=== PATIENT | female | born 1950 | race Caucasian/White ===

== ENCOUNTER → 2019-05-17 13:17 | Outpatient (BNVA) | payer MEDICAID, SELFPAY | PROVIDERS: Family Provider Nurse Practitioner; Visit Provider Nurse Practitioner | DX: E78.2 Mixed hyperlipidemia (principal); I10 Essential (primary) hypertension; E55.9 Vitamin D deficiency, unspecified | CPT/HCPCS: 80053; 80061; 82306 ==

== ENCOUNTER → 2019-08-01 09:13 | Outpatient (BNVA) | payer MEDICAID, SELFPAY | PROVIDERS: Family Provider Nurse Practitioner; Visit Provider Nurse Practitioner | DX: J43.2 Centrilobular emphysema (principal); E78.2 Mixed hyperlipidemia; R53.83 Other fatigue | CPT/HCPCS: 71046; 82607; 85025 ==

== ENCOUNTER → 2019-10-10 16:40 | Outpatient (BNVA) | payer MEDICAID, SELFPAY | PROVIDERS: Family Provider Nurse Practitioner; Visit Provider Nurse Practitioner | DX: J43.2 Centrilobular emphysema (principal); R06.02 Shortness of breath; Z20.828 Contact with and (suspected) exposure to other viral communicable diseases | CPT/HCPCS: 71046; 80053; 85025; 87635 ==

== ENCOUNTER → 2020-03-14 16:31 | Outpatient (BNVA) | payer MEDICAID, SELFPAY | PROVIDERS: Family Provider Nurse Practitioner; Visit Provider Nurse Practitioner | DX: J43.2 Centrilobular emphysema (principal); I10 Essential (primary) hypertension; F41.1 Generalized anxiety disorder; M25.511 Pain in right shoulder; G89.29 Other chronic pain; E55.9 Vitamin D deficiency, unspecified; K21.9 Gastro-esophageal reflux disease without esophagitis; J30.1 Allergic rhinitis due to pollen | CPT/HCPCS: 80053; 80061 ==

== ENCOUNTER → 2020-08-12 09:43 | Outpatient (BNVA) | payer MEDICAID, SELFPAY | PROVIDERS: Family Provider Nurse Practitioner; PCP Nurse Practitioner; Visit Provider Nurse Practitioner | DX: E55.9 Vitamin D deficiency, unspecified (principal); I10 Essential (primary) hypertension; J43.2 Centrilobular emphysema; F41.1 Generalized anxiety disorder; E78.2 Mixed hyperlipidemia; K21.9 Gastro-esophageal reflux disease without esophagitis; J30.1 Allergic rhinitis due to pollen | CPT/HCPCS: 80053; 80061; 82306; 84443 ==

== ENCOUNTER → 2020-11-04 09:36 | Outpatient (BNVA) | payer MEDICAID, SELFPAY | PROVIDERS: Family Provider Nurse Practitioner; PCP Nurse Practitioner; Visit Provider Nurse Practitioner | DX: J43.2 Centrilobular emphysema (principal); I10 Essential (primary) hypertension; F41.1 Generalized anxiety disorder; E55.9 Vitamin D deficiency, unspecified; E78.2 Mixed hyperlipidemia; K21.9 Gastro-esophageal reflux disease without esophagitis; J30.1 Allergic rhinitis due to pollen | CPT/HCPCS: 71046; 85025 ==

== ENCOUNTER → 2021-02-04 11:28 | Outpatient (BNVA) | payer MEDICAID, SELFPAY | PROVIDERS: Family Provider Nurse Practitioner; PCP Nurse Practitioner; Visit Provider Nurse Practitioner | DX: Z20.822 Contact with and (suspected) exposure to COVID-19 (principal); J43.2 Centrilobular emphysema; I10 Essential (primary) hypertension; E55.9 Vitamin D deficiency, unspecified | CPT/HCPCS: 71046; 80053; 80061; 82306; 84443; 85025; 87635 ==

== ENCOUNTER → 2021-07-23 11:30 | Outpatient (BNVA) | payer MEDICAID, SELFPAY | PROVIDERS: Family Provider Nurse Practitioner; PCP Nurse Practitioner; Visit Provider Nurse Practitioner | DX: I10 Essential (primary) hypertension (principal); E55.9 Vitamin D deficiency, unspecified; E78.2 Mixed hyperlipidemia; K21.9 Gastro-esophageal reflux disease without esophagitis; J43.2 Centrilobular emphysema; J30.1 Allergic rhinitis due to pollen; F41.1 Generalized anxiety disorder | CPT/HCPCS: 80053; 80061; 82306; 85025 ==

== ENCOUNTER 2021-10-27 20:06 | Inpatient (IN) | payer MEDICAID, SELFPAY ==
--- NOTE | 2021-10-27 20:07 | XRR_ITS ---
PROCEDURE INFORMATION: Exam: XR Left Hip Exam date and time: 10/27/2021 8:30 PM Age: 71 years old Clinical indication: Injury or trauma; Fall; Other: Possible fracture TECHNIQUE: Imaging protocol: Radiologic exam of the Left hip. Views: 2 or 3 views hip with pelvis when performed. COMPARISON: No relevant prior studies available. FINDINGS: Bones/joints: Subcapital impacted hip fracture with overlap of the fracture fragments. Soft tissues: Unremarkable. Vasculature: Scattered vascular calcifications. XR/XR hip LT 2-3V wo/w pel* [id number] IMPRESSION: 1. Subcapital impacted hip fracture with overlap of the fracture fragments. 2. Scattered vascular calcifications.
[2021-10-27 20:11] VITALS: BMI 19.8
[2021-10-27 20:15] VITALS: BP 206/115; PULSE 102; RESP 19; O2SAT 99
--- NOTE | 2021-10-27 20:24 | XRR_ITS ---
PROCEDURE INFORMATION: Exam: XR Chest Exam date and time: 10/27/2021 8:30 PM Age: 71 years old Clinical indication: Shortness of breath; Additional info: Fall TECHNIQUE: Imaging protocol: Radiologic exam of the chest. Views: 1 view. COMPARISON: No relevant prior studies available. FINDINGS: Lungs: Emphysematous changes. Pleural spaces: Possible trace bilateral pleural effusions. Heart/Mediastinum: Unremarkable. No cardiomegaly. Bones/joints: Unremarkable. XR/XR chest 1V portable [id number] IMPRESSION: 1. Negative for acute abnormality. 2. Emphysematous changes. 3. Possible trace bilateral pleural effusions.
--- NOTE | 2021-10-27 20:24 | CTR_ITS ---
PROCEDURE INFORMATION: Exam: CT Head Without Contrast Exam date and time: 10/27/2021 9:36 PM Age: 71 years old Clinical indication: Injury or trauma; Fall; Blunt trauma (contusions or hematomas) TECHNIQUE: Imaging protocol: Computed tomography of the head without contrast. Radiation optimization: All CT scans at this facility use at least one of these dose optimization techniques: automated exposure control; mA and/or kV adjustment per patient size (includes targeted exams where dose is matched to clinical indication); or iterative reconstruction. COMPARISON: No relevant prior studies available. RADIATION DOSE METRICS: Total DLP (mGy-cm): 993.38 FINDINGS: Brain: Mild diffuse white matter disease likely reflecting chronic microvascular ischemic changes. Cerebral ventricles: No ventriculomegaly. Paranasal sinuses: Visualized sinuses are unremarkable. No fluid levels. Mastoid air cells: Visualized mastoid air cells are well aerated. Bones/joints: Unremarkable. No acute fracture. Soft tissues: Unremarkable. CT/CT head wo con* [id number] IMPRESSION: Negative for intracranial hemorrhage or mass effect.
--- NOTE | 2021-10-27 20:24 | W.ED.EXTPRO ---
HPI - Extremity Problem General: Chief complaint: Extremity Injury, Lower Stated complaint: left hip pain Time Seen by Provider: 10/27/21 20:12 [facility] PFSH: Medical History Allergic rhinitis due to pollen Centrilobular emphysema Gastro-esophageal reflux disease without esophagitis Generalized anxiety disorder History of TB (tuberculosis) Hypertension Mixed hyperlipidemia Neuropathy Personal history of nicotine dependence Vitamin D insufficiency Surgical History History of section History of colonoscopy 2016 Hx of total hysterectomy with BSO Family History Other Bleeding disorder Cancer Diabetes Stroke Thyroid disease Social History Smoking and tobacco status: former smoker Second hand smoke exposure: Yes Smoking risk assessment/counseling performed?: Yes Alcohol intake: never Desire information about alcohol rehabilitation?: No Counseling given: No Desire information about substance/drug rehabilitation?: No Counseling given: No Adopted: No Caregiver/support person: No Lives independently: Yes Household members: family Housing: House Marital status: Number of children: 4 service: No Current occupational status: retired Current occupational exposures/hazards: No History of recent travel: No Current gender identity: Female Course Vital Signs: Vital signs: Vital Signs Pulse Rate 102 H 10/27/21 20:15 Respiratory Rate 19 H 10/27/21 20:15 Blood Pressure 206/115 10/27/21 20:15 Pulse Oximetry 99 10/27/21 20:15 Oxygen Delivery Me thod 10/27/21 20:15 Oxygen Flow Rate 4 10/27/21 20:15 Discharge Plan Discharge Condition: Stable Prescriptions: No Action prednisone 10 mg tablet 10 mg PO DAILY Qty: 10 0RF (DME) oxygen concentrator with portable oxygen See Rx Instructions .Route .MEDSUPPLY Qty: 1 0RF Rx Instructions: As directed oxygen concentrator with portable oxygen 2 liters 24 hours atorvastatin 20 mg tablet 20 mg PO DAILY Qty: 30 2RF cholecalciferol (vitamin D3) [Vitamin D3] 125 mcg (5,000 unit) tablet 5,000 unit PO QDAY Qty: 30 2RF famotidine 40 mg tablet 40 mg PO .HS Qty: 30 2RF Flovent HFA 110 mcg/actuation HFA aerosol inhaler 2 puff inhalation BID Qty: 12 2RF guaifenesin [Tussin] 400 mg tablet 400 mg PO QID Qty: 120 2RF lisinopril 40 mg tablet 40 mg PO QDAY Qty: 30 2RF loratadine [Allergy Relief (loratadine)] 10 mg tablet 10 mg PO QDAY Qty: 90 0RF magnesium oxide 400 mg magnesium tablet 400 mg PO BID Qty: 180 0RF Stiolto Respimat 2.5-2.5 mcg/actuation mist 2 puff inhalation Q24H Qty: 4 2RF Rx Instructions: Stop Bevespi trazodone 50 mg tablet 50 mg PO .HS Qty: 30 2RF venlafaxine 75 mg capsule,extended release 24hr 75 mg PO QDAY Qty: 30 2RF azithromycin 250 mg tablet See Rx Instructions PO .COMPLEX Qty: 6 0RF Rx Instructions: For 250 mg dose pack: take 500 mg today (day 1), then 250 mg for 4 days (days 2-5) PO ipratropium-albuterol 0.5 mg-3 mg(2.5 mg base)/3 mL solution for nebulization 3 ml inhalation Q4H PRN (Reason: wheezing) Qty: 180 2RF Referrals: Ema Jansen FNP-C [Primary Care Provider] - Coding Level of Care Code ED Manager Equity for Kristel Muse
--- NOTE | 2021-10-27 20:41 | XRR_ITS ---
PROCEDURE INFORMATION: Exam: XR Left Knee Exam date and time: 10/27/2021 8:43 PM Age: 71 years old Clinical indication: Injury or trauma; Fall; Other: Pain; Additional info: Knee pain TECHNIQUE: Imaging protocol: Radiologic exam of the Left knee. Views: 1 or 2 views. COMPARISON: No relevant prior studies available. FINDINGS: Bones/joints: Moderate tricompartmental osteoarthritis of the knee. Soft tissues: Normal. Vasculature: Scattered vascular calcifications. XR/XR knee LT 1-2V [id number] IMPRESSION: 1. Moderate tricompartmental osteoarthritis of the knee. 2. Scattered vascular calcifications.
[2021-10-27 21:03] VITALS: PULSE 100; RESP 16; O2SAT 96
[2021-10-27 21:11] LABS: Basophils % 0.4 %; Eosinophils # 0.1 10^3/uL (0.0-0.8); Eosinophils % 0.5 %; Hematocrit 36.3 % (37.0-47.0); Hemoglobin 10.9 g/dL (11.5-15.3); Lymphocytes % 10.1 %; Mean Corpuscular Hemoglobin 27.2 pg (28.0-34.0); Mean Corpuscular Volume 90.5 fl (81-99); Monocytes # 0.6 10^3/uL (0.2-0.9); Monocytes % 5.9 %; Neutrophils # 7.79 10^3/uL (1.8-7.7); Neutrophils % 82.6 %; Nucleated Red Blood Cells % 0 %; Platelet Count 279 10^3/cmm (130-400); Red Blood Count 4.01 10^6/uL (4.1-5.3); Red Cell Distribution Width 12.4 % (12.1-15.1); White Blood Count 9.4 10^3/uL (4.0-10.0)
--- NOTE | 2021-10-27 21:11 | ED_ITS ---
HPI - General Adult General: Stated complaint: left hip pain Time Seen by Provider: 10/27/21 20:12 History of Present Illness: Patient is a 71-year-old female history of hyperlipidemia, hypertension, chronic cough who presents emergency room after episode of fall yesterday night. Patient tells me that she was at home when she slipped and fell onto her left hip. Patient has been ambulatory yesterday night however this morning, patient has not been able to bear weight on the left leg. Patient complains of left knee and left hip pain. Patient also reports hitting her head with the fall. Patient has no complaints of chest pain, shortness of palpitation or lightheadedness with the fall. Patient has a junky cough denies any worsening fever/chills, increased sputum production or dyspnea. Onset: yesterday night Duration:ongoing Location:home Severity:moderate Associated symptoms: Deny chest pain, dyspnea, nausea, rash, palpitations or vom iting Review of Systems Const: Denies: fever(s) or chills Eyes: Denies: change in vision ENMT: Denies: mouth pain Card: Denies: chest pain or palpitations Resp: Reports: non-productive cough; Denies: dyspnea GI: Denies: abdominal pain, nausea, vomiting or diarrhea : Denies: dysuria Musc: Reports: extremity pain (+L hip and L knee pain) Skin/Breast: Denies: rash or new lesions Neuro: Denies: weakness in extremities Psych: Reports: other (Normal mood) Alfredo/Lymph: Denies: easy bruising PFS ED PFSH: Medical History (Updated 10/28/21 @ 18:48 by Ashli Frausto MD) Allergic rhinitis due to pollen Centrilobular emphysema Gastro-esophageal reflux disease without esophagitis Generalized anxiety disorder History of TB (tuberculosis) Hypertension Mixed hyperlipidemia Neuropathy Personal history of nicotine dependence Vitamin D insufficiency Surgical History History of section History of colonoscopy 2016 Hx of total hysterectomy with BSO Family History Other Bleeding disorder Cancer Diabetes Stroke Thyroid disease Social History Smoking and tobacco status: former smoker Second hand smoke exposure: Yes Smoking risk assessment/counseling performed?: Yes Alcohol intake: never Desire information about alcohol rehabilitation?: No Counseling given: No Desire information about substance/drug rehabilitation?: No Counseling given: No Adopted: No Caregiver/support person: No Lives independently: Yes Household members: family Housing: House Marital status: Number of children: 4 service: No Current occupational status: retired Current occupational exposures/hazards: No History of recent travel: No Current gender identity: Female Physical Exam Const: COMMON NORMALS: alert HENMT: COMMON NORMALS: atraumatic HEAD & SCALP: atraumatic MOUTH: moist mucous membranes not abnormal Eye: COMMON NORMALS: EOMs intact bilaterally and conjunctivae normal CONJUNCTIVA: Yes conjunctivae normal Neck/C-Spine: COMMON NORMALS: full ROM and supple Resp: COMMON NORMALS: normal respiratory effort OTHER: +coarse junky breath sounds b/l Cardio: COMMON NORMALS: regular rate RATE: regular rate GI: COMMON NORMALS: Soft to palpation and non-tender PALPATION: Yes Soft to palpation OTHER: No focal TTP. NO guarding rebound, guarding, rigidity. No CVA tenderness to percussion. Neg Morley/Neg McBurney's point tenderness, no suprabupic tenderness to palpation. Extremity: NARRATIVE EXTREMITY EXAM: + Decreased patient return the left hip due to pain, no focal tenderness palpation of the left knee, neurovascular exam intact in the left leg Neuro: SENSORIUM/ORIENTATION: Yes alert MOTOR EXAM: No Abnormal motor strength present and Other motor observations present (no focal motor deficits) Psych: COMMON NORMALS: speech normal SPEECH: Yes normal speech MOOD & AFFECT: Yes euthymic mood Course Vital Signs: Vital signs: Vital Signs Temperature 97.6 F 11/01/21 08:00 Pulse Rate 90 11/01/21 08:04 Respiratory Rate 16 11/01/21 08:04 Blood Pressure 158/76 11/01/21 08:00 Pulse Oximetry 96 11/01/21 08:04 Oxygen Delivery Me thod 11/01/21 08:04 Oxygen Flow Rate 3 11/01/21 08:04 [facility] - General Adult Medical Decision Making Patient is a 71-year-old female history of hyperlipidemia, hypertension chronic cough who presents emergency room after episode of fall yesterday night. Lungs appear to be coarse bilaterally. X-ray chest appears to be clear. Patient is afebrile, white count 9.4. Patient has decreased range of motion of the left hip. X-ray shows subcapital hip fracture. Patient received morphine in the ER. Case was discussed from Dr. Frausto who recommend n.p.o. at midnight and operative management. Disposition: admission Lab Data : 11/01/21 04:14 11/01/21 04:14 Radiology Impressions Hip/Pelvis X-Ray 10/27/21 20:07 IMPRESSION: 1. Subcapital impacted hip fracture with overlap of the fracture fragments. 2. Scattered vascular calcifications. Chest X-Ray 10/27/21 20:24 IMPRESSION: 1. Negative for acute abnormality. 2. Emphysematous changes. 3. Possible trace bilateral pleural effusions. Head CT 10/27/21 20:24 IMPRESSION: Negative for intracranial hemorrhage or mass effect. Knee X-Ray 10/27/21 20:41 IMPRESSION: 1. Moderate tricompartmental osteoarthritis of the knee. 2. Scattered vascular calcifications. Pelvis X-Ray 10/28/21 21:04 IMPRESSION: 1. Left hip arthroplasty changes in place with postsurgical soft tissue changes. 2. Scattered vascular calcifications. Laboratory Results WBC 9.4 10^3/uL (4.0-10.0) 10/27/21 21:00 RBC 4.01 10^6/uL (4.1-5.3) L 10/27/21 21:00 Hgb 10.9 g/dL (11.5-15.3) L 10/27/21 21:00 Hct 36.3 % (37.0-47.0) L 10/27/21 21:00 MCV 90.5 fl (81-99) 10/27/21 21:00 MCH 27.2 pg (28.0-34.0) L 10/27/21 21:00 MCHC 30.0 g/dL (30.0-36.0) 10/27/21 21:00 RDW 12.4 % (12.1-15.1) 10/27/21 21:00 Plt Count 279 10^3/cmm (130-400) 10/27/21 21:00 MPV 11.0 fL (7.4-10.4) H 10/27/21 21:00 Neut % (Auto) 82.6 % 10/27/21 21:00 Lymph % (Auto) 10.1 % 10/27/21 21:00 [place] % (Auto) 5.9 % 10/27/21 21:00 Eos % (Auto) 0.5 % 10/27/21 21:00 Baso % (Auto) 0.4 % 10/27/21 21:00 Neut # (Auto) 7.79 10^3/uL (1.8-7.7) H 10/27/21 21:00 Lymph # (Auto) 1.0 10^3/uL (0.8-4.8) 10/27/21 21:00 [place] # (Auto) 0.6 10^3/uL (0.2-0.9) 10/27/21 21:00 Eos # (Auto) 0.1 10^3/uL (0.0-0.8) 10/27/21 21:00 Baso # (Auto) 0.0 10^3/uL (0.0-0.1) 10/27/21 21:00 Nucleated RBC % (auto) 0 % 10/27/21 21:00 Nucleated RBCs # 0.0 /100WBC 10/27/21 21:00 PT 13.10 SECONDS (12.1-14.9) 10/27/21 21:00 INR 0.96 (0.8-1.2) 10/27/21 21:00 APTT 26.7 SECONDS (23.9-36.7) 10/27/21 21:00 Sodium 136 mmol/L (136-145) 10/27/21 21:00 Potassium 3.9 mmol/L (3.5-5.1) 10/27/21 21:00 Chloride 92 mmol/L (98-107) L 10/27/21 21:00 Carbon Dioxide 32 mmol/L (22-29) H 10/27/21 21:00 Anion Gap 15.9 (5-19) 10/27/21 21:00 BUN 12 mg/dL (8-23) 10/27/21 21:00 Creatinine 0.4 mg/dL (0.5-0.9) L 10/27/21 21:00 GFR Calculation Not Reportable 10/27/21 21:00 Glucose 104 mg/dL (65-115) 10/27/21 21:00 Calculated Osmolality 282 mOsm/kg (285-295) L 10/27/21 21:00 Calcium 9.9 mg/dL (8.5-10.5) 10/27/21 21:00 Troponin T Baseline 60 ng/L (0-10) H 10/27/21 21:00 Blood Type B Positive 10/27/21 21:00 Rho(D) Type Positive 10/27/21 21:00 Antibody Screen Negative 10/27/21 21:00 Imaging Data Other Imaging: Radiologist's impression: [facility] [address] [address] XRay Report Signed Patient: Karin Garcia Unit #: [id number] : 1950 Age/Sex: 71 / F ADM Date: 10/27/21 Loc: ER Room/Bed: Attending Dr: Ordering Provider/Ordering MD: Walker Schmitz MD Date of Service: 10/27/21 Procedure(s): XR knee LT 1-2V 18509 Accession Number(s): [id number] Report Number: [id number] PROCEDURE INFORMATION: Exam: XR Left Knee Exam date and time: 10/27/2021 8:43 PM Age: 71 years old Clinical indication: Injury or trauma; Fall; Other: Pain; Additional info: Knee pain TECHNIQUE: Imaging protocol: Radiologic exam of the Left knee. Views: 1 or 2 views. COMPARISON: No relevant prior studies available. FINDINGS: Bones/joints: Moderate tricompartmental osteoarthritis of the knee. Soft tissues: Normal. Vasculature: Scattered vascular calcifications. XR/XR knee LT 1-2V [id number] IMPRESSION: 1. Moderate tricompartmental osteoarthritis of the knee. 2. Scattered vascular calcifications. ? Dictated By: Mani Guna MD Signed By: Mani Guan MD Signed Date/Time: 10/27/212056 DD/ [address] [address] XRay Report Signed Patient: Karin Garcia Unit #: [id number] : 1950 Age/Sex: 71 / F ADM Date: 10/27/21 Loc: ER Room/Bed: Attending Dr: Ordering Provider/Ordering MD: Walker Schmitz MD Date of Service: 10/27/21 Procedure(s): XR chest 1V portable [id number] Accession Number(s): [id number] Report Number: [id number] PROCEDURE INFORMATION: Exam: XR Chest Exam date and time: 10/27/2021 8:30 PM Age: 71 years old Clinical indication: Shortness of breath; Additional info: Fall TECHNIQUE: Imaging protocol: Radiologic exam of the chest. Views: 1 view. COMPARISON: No relevant prior studies available. FINDINGS: Lungs: Emphysematous changes. Pleural spaces: Possible trace bilateral pleural effusions. Heart/Mediastinum: Unremarkable. No cardiomegaly. Bones/joints: Unremarkable. XR/XR chest 1V portable [id number] IMPRESSION: 1. Negative for acute abnormality. 2. Emphysematous changes. 3. Possible trace bilateral pleural effusions. ? Dictated By: Mani Guan MD Signed By: Mani Guan MD Signed Date/Time: 10/27/212055 DD/ [address] [address] XRay Report Signed Patient: Karin Garcia Unit #: [id number] : 1950 Age/Sex: 71 / F ADM Date: 10/27/21 Loc: ER Room/Bed: Attending Dr: Ordering Provider/Ordering MD: Akil Quintero MD Date of Service: 10/27/21 Procedure(s): XR hip LT 2-3V wo/w pel* [id number] Accession Number(s): [id number] Report Number: [id number] PROCEDURE INFORMATION: Exam: XR Left Hip Exam date and time: 10/27/2021 8:30 PM Age: 71 years old Clinical indication: Injury or trauma; Fall; Other: Possible fracture TECHNIQUE: Imaging protocol: Radiologic exam of the Left hip. Views: 2 or 3 views hip with pelvis when performed. COMPARISON: No relevant prior studies available. FINDINGS: Bones/joints: Subcapital impacted hip fracture with overlap of the fracture fragments. Soft tissues: Unremarkable. Vasculature: Scattered vascular calcifications. XR/XR hip LT 2-3V wo/w pel* [id number] IMPRESSION: 1. Subcapital impacted hip fracture with overlap of the fracture fragments. 2. Scattered vascular calcifications. ? Dictated By: Mani Guan MD Signed By: Mani Guan MD Signed Date/Time: 10/27/212055 DD/ 29 Discharge Plan Discharge Patient Disposition: Admitted As Inpatient Admit Provider: Claudio Cortes Clinical Impression: Closed hip fracture Condition: Stable Discharge Activity: Limit activity as instructed, Use walker/crutches as instructed and As per PT/OT instructions Coding Level of Care Code ED Senior Integration Architect for Chg Fwd Exam Comprehensive
--- NOTE | 2021-10-27 21:16 | XRR_ITS ---
PROCEDURE INFORMATION: Exam: XR Pelvis Exam date and time: 10/27/2021 9:40 PM Age: 71 years old Clinical indication: Injury or trauma; Fall; Blunt trauma (contusions or hematomas); Bilateral; Pelvic region; Injury date: Today; Additional info: Addition to isolated ap and lat hip left hip TECHNIQUE: Imaging protocol: Radiologic exam of the pelvis. Views: 1 or 2 view. COMPARISON: CR (PELVIS, ) 10/27/2021 8:30 PM FINDINGS: Bones/joints: Left subcapital impacted displaced hip fracture. Soft tissues: Unremarkable. Vasculature: Scattered vascular calcifications. XR/XR pelvis 1-2V* [id number] IMPRESSION: 1. Left subcapital impacted displaced hip fracture. 2. Scattered vascular calcifications.
[2021-10-27 21:28] VITALS: RESP 15
[2021-10-27] MEDS: morphine 4 mg/mL SDV 1 mL IVP (21:28)
[2021-10-27 21:39] LABS: INR 0.96 (0.8-1.2); Partial Thromboplastin Time 26.7 SECONDS (23.9-36.7)
[2021-10-27 21:42] LABS: Troponin(5th) Baseline 60 ng/L (0-10)
[2021-10-27 21:44] LABS: Anion Gap 15.9 (5-19); Blood Urea Nitrogen 12 mg/dL (8-23); Calcium 9.9 mg/dL (8.5-10.5); Carbon Dioxide 32 mmol/L (22-29); Chloride 92 mmol/L (98-107); Glucose 104 mg/dL (65-115); Osmolality Calculated 282 mOsm/kg (285-295); Potassium 3.9 mmol/L (3.5-5.1); Sodium 136 mmol/L (136-145)
[2021-10-27 22:24] VITALS: PULSE 95; RESP 18; TEMP 36.7; O2SAT 94
--- NOTE | 2021-10-27 22:39 | PM.HP ---
Providers/Chief Complaint Admitting Physician: Claudio Cortes MD Primary Care Provider: Ema Jansen, DIAGNOSTICS SALES DEVELOPER-C Chief Complaint: left hip pain History of Present Illness Karin Garcia is a 71 year old female with a past medical history of emphysema, hypertension, hyperlipidemia, GERD, generalized anxiety disorder, who presents to [facility] due to inability to walk and left hip pain. Patient tells that yesterday evening, she bent over to package pick up something off the floor, when she fell on her left side, she did not lose any consciousness she did hit her head, no preceding chest pain or palpitations or shortness of breath or strokelike symptoms or seizure-like symptoms. She spent a few minutes on the floor, eventually she called out for her son who came and picked her up off the ground, since then she is not able to walk, and she has been having left-sided hip pain. She present to the emergency room today with her symptoms, denies any chest pain, no palpitations, no shortness of breath, no numbness, no facial droop, no slurring of her words, no focal weakness, no strokelike symptoms, no seizure-like symptoms, denies passing out, no dysuria, no shortness of breath, no cough, she has a history of smoking, but quit a few years ago, denies drinking alcohol Review of Systems Const: Denies: fever(s) or chills Eyes: Denies: change in vision Card: Denies: chest pain Resp: Denies: dyspnea GI: Denies: abdominal pain : Denies: difficulty voiding Musc: Reports: extremity pain Neuro: Denies: headache(s), numbness in extremities, weakness in extremities or dizziness Medications/Allergies Home Medications Medication Instructions Recorded Confirmed Last Taken Type oxygen concentrator with portable #1 ea 02/04/21 10/27/21 Unknown Rx oxygen atorvastatin 20 mg tablet 20 mg PO DAILY #30 tabs 07/23/21 10/27/21 10/25/21 Rx fluticasone propionate 110 2 puff inhalation BID #12 grams 07/23/21 10/27/21 Unknown Rx mcg/actuation HFA aerosol inhaler (Flovent HFA) ipratropium 0.5 mg-albuterol 3 mg 3 ml inhalation Q4H PRN wheezing 07/23/21 10/27/21 Unknown Rx (2.5 mg base)/3 mL nebulization #180 mL soln magnesium oxide 400 mg PO BID #180 tabs 07/23/21 10/27/21 10/25/21 Rx cholecalciferol (vitamin D3) 125 5,000 unit PO DAILY 10/27/21 10/27/21 10/25/21 History mcg (5,000 unit) tablet (Vitamin D3) famotidine 40 mg tablet 40 mg PO BEDTIME 10/27/21 10/27/21 10/25/21 History lisinopril 40 mg tablet 40 mg PO DAILY 10/27/21 10/27/21 10/25/21 History trazodone 50 mg tablet 50 mg PO BEDTIME 10/27/21 10/27/21 10/25/21 History venlafaxine 75 mg capsule,extended 75 mg PO DAILY 10/27/21 10/27/21 10/25/21 History release 24 hr Allergies Allergy/AdvReac Type Severity Reaction Status Date / Time No Known Allergies Allergy Unverified 07/27/21 16:57 PFSH Acute PFSH: Medical History Allergic rhinitis due to pollen Centrilobular emphysema Gastro-esophageal reflux disease without esophagitis Generalized anxiety disorder History of TB (tuberculosis) Hypertension Mixed hyperlipidemia Neuropathy Personal history of nicotine dependence Vitamin D insufficiency Surgical History History of section History of colonoscopy 2016 Hx of total hysterectomy with BSO Family History Other Bleeding disorder Cancer Diabetes Stroke Thyroid disease Social History Smoking and tobacco status: former smoker Second hand smoke exposure: Yes Smoking risk assessment/counseling performed?: Yes Alcohol intake: never Desire information about alcohol rehabilitation?: No Counseling given: No Desire information about substance/drug rehabilitation?: No Counseling given: No Adopted: No Caregiver/support person: No Lives independently: Yes Household members: family Housing: House Marital status: Number of children: 4 service: No Current occupational status: retired Current occupational exposures/hazards: No History of recent travel: No Current gender identity: Female Vitals/I&O/Wt Last Vital Signs Temp 98.1 F 10/27/21 22:24 Pulse 95 10/27/21 22:24 Resp 18 10/27/21 22:24 BP 206/115 10/27/21 20:15 Pulse Ox 94 10/27/21 22:24 O2 Del Method 10/27/21 22:24 O2 Flow Rate 4 10/27/21 22:24 Weight last 48 hrs Weight 44.452 kg Physical Exam Const: COMMON NORMALS: no acute distress and patient oriented x3 HENMT: COMMON NORMALS: normocephalic HEAD & SCALP: normocephalic Eye: COMMON NORMALS: Equal, round and reactive pupils present and EOMs intact bilaterally Neck/C-Spine: COMMON NORMALS: no JVD Resp: COMMON NORMALS: normal respiratory effort, No retractions, No use of accessory muscles and clear to auscultation bilaterally AUSCULTATION: clear to auscultation bilaterally Cardio: COMMON NORMALS: no JVD, regular rate, regular rhythm, S1 normal heart sound present and S2 normal heart sound present RATE: regular rate RHYTHM: regular rhythm HEART SOUNDS: S1 normal heart sound present and S2 normal heart sound present GI: COMMON NORMALS: Normal to inspection, nondistended, normoactive bowel sounds present, Soft to palpation, non-tender, No hepatosplenomegaly present, no masses and no bruits PALPATION: Yes Soft to palpation and Yes No hepatosplenomegaly present Extremity: COMMON NORMALS: no calf tenderness and no pedal edema Neuro: COMMON NORMALS: patient oriented x3 Psych: COMMON NORMALS: mental status grossly normal Data : 10/27/21 21:00 10/27/21 21:00 A&P Assessment and plan (1) Closed hip fracture: Status: Acute (2) Centrilobular emphysema: Status: Chronic Plan Left hip fracture -Orthopedic service has been consulted -Anticoagulation as per orthopedic team -Morphine for pain control -UA pending -Serial EKGs, serial troponins, baseline troponin 60, no complaints of chest pain -PT OT after surgery -IV fluids -Full code -SCDs for DVT prophylaxis, anticoagulation after surgery Attestations Medical Necessity Statement*: Patient requires hospitalization, inpatient, greater than 2 midnights, for left hip fracture Coding Level of Care Code Acute Grounds Crew Supervisor for Chg Fwd Diagnoses Closed hip fracture S72.009A Centrilobular emphysema J43.2
[2021-10-27 22:58] VITALS: BP 206/115; PULSE 95; RESP 18; TEMP 36.7; O2SAT 94
[2021-10-27 23:30] LABS: Troponin 5 2HR 104.1 ng/L (0-10)
[2021-10-27 23:36] LABS: Troponin 5 2HR Delta 44.1 ABS# (0-10)
[2021-10-28] VITALS (23 sets, daily range): BP systolic 117–197; BP diastolic 67–104; PULSE 0–101; RESP 14–21; TEMP 36.1–37.1; O2SAT 90–100
[2021-10-28] MEDS: ceFAZolin 2,000 MG in sodium chloride 0.9% (plus) 50 ML 100 MG IV ×3 (00:19→22:55)
[2021-10-28] MEDS: sodium chloride 0.9% 1,000 ML 100 ML IV ×3 (00:20→22:57)
[2021-10-28] MEDS: pantoprazole 40 mg SDV IVP ×2 (00:21→22:55)
--- NOTE | 2021-10-28 00:39 | ECG_ITS ---
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 Measurements Intervals [place] Rate: 90 P: 77 [place]: 144 QRS: 74 QRSD: 77 T: -53 QT: 344 QTc: 422 Interpretive Statements SINUS RHYTHM ST DEVIATION AND MODERATE T-WAVE ABNORMALITY, CONSIDER INFERIOR ISCHEMIA No previous ECG available for comparison Electronically Signed On 10-28-2021 18:05:02 CDT by Romelia Elliott M.D. [id number]
--- NOTE | 2021-10-28 00:39 | USCV_ITS ---
Karin Garcia Age: 71 Gender: F : 1950 Exam Date: 10/28/2021 02:36 Ordering Phys: Claudio Cortes MD Technologist: SHAHNAZ [place] [facility] [place]: NSTEMI. BP: 181 / 81 HR: 93 Rhythm: Sinus Technical Quality: Adequate MEASUREMENTS (Male / Female) Normal Values 2D ECHO LV Diastolic Diameter PLAX 3.5 cm 4.2 - 5.9 / 3.9 - 5.3 cm LV Systolic Diameter PLAX 2.4 cm IVS Diastolic Thickness 1.0 cm 0.6 - 1.0 / 0.6 - 0.9 cm IVS Systolic Thickness 1.3 cm LVPW Diastolic Thickness 1.0 cm 0.6 - 1.0 / 0.6 - 0.9 cm LVPW Systolic Thickness 0.7 cm LVOT Diameter 1.7 cm LV Ejection Fraction 2D Teich 59.7 % LV Ejection Fraction MOD 2C 69.5 % LV Ejection Fraction 2C AL 68.6 % LA Diameter 2.7 cm LA Width 3.2 cm LA Height 4.2 cm RA Width 2.2 cm RA Height 3.9 cm Aorta at Sinotubular Diameter 3.2 cm IVC Diameter 1.4 cm M-MODE Aortic Annulus Diameter 3.4 cm LA Ao Ratio MM 0.8 MV E Point Septal Separation 0.3 cm DOPPLER AV Peak Velocity 110.0 cm/s LVOT Peak Velocity 68.0 cm/s AV Area Cont Eq vti 1.2 cm squared AV Area Cont Eq pk 1.4 cm squared MV Area PHT 3.7 cm squared Mitral E to A Ratio 0.8 MV E' Velocity 38.0 cm/s Mitral E to MV E' Ratio 13.4 Mitral E to LV E' Lateral Ratio 13.2 Mitral E to LV E' Septal Ratio 14.0 TR Peak Velocity 317.3 cm/s TR Peak Gradient 40.3 mmHg TV Peak E Velocity 37.0 cm/s Right Atrial Pressure 5.0 mmHg Pulmonary Artery Systolic Pressu 45.3 mmHg PV Peak Velocity 100.0 cm/s RV Acceleration Time 0.1 s RV Ejection Time 0.3 s RV AcT/ET 0.3 FINDINGS Left Ventricle Normal left ventricular size, systolic function with no regional wall motion abnormalities. Left ventricular ejection fraction is estimated at 60 %. Grade I diastolic dysfunction (abnormal relaxation filling pattern), normal to mildly elevated filling pressures. Right Ventricle Normal right ventricular size and systolic function. RVSP could not be calculated due to incomplete tricuspid regurgitation velocity profile. Right Atrium Normal right atrial size. Left Atrium Upper normal left atrial size. Mitral Valve Moderately thickened mitral valve. No mitral valve stenosis. Trace mitral valve regurgitation. Aortic Valve Structurally normal trileaflet aortic valve. No aortic valve stenosis. No aortic valve regurgitation. Tricuspid Valve Structurally normal tricuspid valve. No tricuspid valve stenosis. Trace to mild tricuspid valve regurgitation. Pulmonic Valve Structurally normal pulmonic valve. No pulmonary valve stenosis. No pulmonary valve regurgitation. Pericardium No pericardial effusion. Aorta Normal-sized aortic root. IVC Normal IVC dimension with >50% respiratory change of the inferior vena cava. CONCLUSIONS 1. Normal left ventricular size, systolic function with no regional wall motion abnormalities. Left ventricular ejection fraction is estimated at 60 %. Grade I diastolic dysfunction (abnormal relaxation filling pattern), normal to mildly elevated filling pressures. 2. Normal right ventricular size and systolic function. 3. Trace to mild tricuspid valve regurgitation. 4. There may not have been any significant change when compared to prior study report dated 12/30/2018. Romelia Elliott MD (Electronically Signed) Final Date: 28 October 2021 12:55 S
[2021-10-28] MEDS: aspirin 81 mg EC Tablet PO ×2 (01:37→23:55)
[2021-10-28] MEDS: carvedilol 3.125 mg Tablet PO ×3 (01:37→17:10)
[2021-10-28 02:26] LABS: Basophils % 0.5 %; Eosinophils # 0.2 10^3/uL (0.0-0.8); Eosinophils % 2.2 %; Hematocrit 35.6 % (37.0-47.0); Hemoglobin 10.4 g/dL (11.5-15.3); Lymphocytes # 1.1 10^3/uL (0.8-4.8); Lymphocytes % 13.9 %; Mean Corpuscular HGB Conc 29.2 g/dL (30.0-36.0); Mean Corpuscular Hemoglobin 26.9 pg (28.0-34.0); Mean Platelet Volume 11.6 fL (7.4-10.4); Monocytes # 0.5 10^3/uL (0.2-0.9); Monocytes % 6.4 %; Neutrophils # 5.94 10^3/uL (1.8-7.7); Neutrophils % 76.6 %; Nucleated Red Blood Cells % 0 %; Platelet Count 264 10^3/cmm (130-400); Red Blood Count 3.87 10^6/uL (4.1-5.3); Red Cell Distribution Width 12.7 % (12.1-15.1); White Blood Count 7.8 10^3/uL (4.0-10.0)
[2021-10-28 03:00] LABS: Anion Gap 13.8 (5-19); Blood Urea Nitrogen 11 mg/dL (8-23); Calcium 9.8 mg/dL (8.5-10.5); Carbon Dioxide 34 mmol/L (22-29); Chloride 94 mmol/L (98-107); Glucose 105 mg/dL (65-115); Osmolality Calculated 286 mOsm/kg (285-295); Potassium 3.8 mmol/L (3.5-5.1); Sodium 138 mmol/L (136-145); Thyroid Stimulating Hormone 1.94 uIU/mL (0.27-4.20)
[2021-10-28] MEDS: morphine 4 mg/mL SDV 1 mL IVP (07:13)
[2021-10-28 07:28] LABS: Troponin(5th) Baseline 81 ng/L (0-10)
[2021-10-28] MEDS: lisinopril 20 mg Tablet 40 MG PO (08:24)
[2021-10-28] MEDS: atorvastatin 40 mg Tablet 20 MG PO (08:24)
[2021-10-28] MEDS: venlafaxine ER (24HR) 75 mg Capsule PO (08:25)
[2021-10-28] MEDS: cholecalciferol (vitamin D3) 5,000 unit Tablet 5000 UNIT PO (08:25)
[2021-10-28 08:31] LABS: Add Urine Microscopic? YES; Bilirubin Urine Neg (Negative); Blood Urine 3+ (Negative); Glucose Urine UA Norm (Normal); Ketones Urine 1+ (Negative); Leukocyte Esterase Urine Negative (Negative); Nitrate Urine Negative (Negative); Protein Urine Trace (Negative); Urine Appearance Clear (CLEAR); Urine Color Yellow (Yellow); Urobilinogen Urine Norm (Negative); pH Urine 6 (5-7)
[2021-10-28 08:32] LABS: Add Urine Culture? Yes; Bacteria Urine TRACE /hpf; Mucus Urine 2+ /hpf; RBC Urine 25-40 /hpf (0-2); Squamous Epithelial Cell Urine 0-4 /hpf (0-5)
--- NOTE | 2021-10-28 08:46 | ECG_ITS ---
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 Measurements Intervals [place] Rate: 102 P: 36 [place]: 128 QRS: 67 QRSD: 90 T: 45 QT: 310 QTc: 404 Interpretive Statements SINUS TACHYCARDIA NONSPECIFIC ST & T-WAVE ABNORMALITY Compared to ECG 10/28/2021 00:49:15 Sinus rhythm no longer present Possible ischemia no longer present T-wave abnormality still present Electronically Signed On 10-28-2021 18:09:53 CDT by Romelia Elliott M.D. [id number]
[2021-10-28 09:28] LABS: Troponin 5 2HR 72.98 ng/L (0-10)
[2021-10-28 09:35] LABS: Troponin 5 2HR Delta -8.02 ABS# (0-10)
--- NOTE | 2021-10-28 10:52 | PC.CHAP ---
Pastoral Care Encounter/Spiritual Assessment Type of Contact [] Declined hand potter visit [] Patient/Family/Request visit [] Outpatient visit [] Follow-up visit [] Physician referral [] Code/Alert [x] Routine visit [] Staff referral [] Actively dying [] Patient sleeping [] Family support [] [] Out of room [] Palliative care [] [] Receiving care in room [] Pre-surgical visit [] Trauma [] Long length of stay [] ICU visit [] Other: Relational/Emotional Strength [] Patient feels connected with others/family/visitors/staff [] Distress [] Loneliness/isolation [] Abandonment Spirituality of Patient [x] Person of Kera [x] Attends Gnosticist of their Kera [x] Believes in Prayer [] Reads Bible or Cheondoism materials [] There are Spiritual issues to be addressed [employer] Photo Mask Maker Interventions [x] Prayer [x] Active listening [] Non-anxious presence []x Spiritual/emotional support [] Crisis/trauma care [] Spiritual counseling [] Bereavement support [] Provided bereavement packet [] Provided Bible/devotional materials [] Provided toy/stuffed animal, coloring book to patient or family member [] Provided Communion [] Anointing/[place] [] Salvation [x] Completed spiritual assessment [] Other: Impact on Illness or Injury [] Angry [] Fearful [] Anxious [] Often cries [] Exhaustion [] Unable to work [] Unable to attend sikhism [] Unable to walk/stand [] Unable to read [] Unable to drive [] Unable to eat/drink [] Unable to sleep [] Unable to be with family [] Patient intubated [] Other: Summary Time spent with patient 10 min
[2021-10-28] MEDS: HYDROcodone-acetaminophen 5-325 mg Tablet 1 TAB PO (12:03)
--- NOTE | 2021-10-28 12:46 | ECG_ITS ---
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 Measurements Intervals [place] Rate: 96 P: 70 [place]: 156 QRS: 53 QRSD: 90 T: 45 QT: 367 QTc: 466 Interpretive Statements SINUS RHYTHM ST DEVIATION AND MODERATE T-WAVE ABNORMALITY, CONSIDER ANTEROLATERAL ISCHEMIA [-0.1+ mV T-WAVE IN V3-V6] Compared to ECG 10/28/2021 09:30:07 Possible ischemia now present Sinus tachycardia no longer present T-wave abnormality still present Electronically Signed On 10-28-2021 18:07:35 CDT by Romelia Elliott M.D. [id number]
[2021-10-28 13:44] LABS: Troponin 5 6HR 61.87 ng/L (0-10)
--- NOTE | 2021-10-28 16:03 | PM.PN ---
Subjective Subjective: Admitted overnight. H&P appreciated On examination lying comfortably in bed. Complaining of occasional pain. Denies of any nausea, dizziness, headache. N.p.o. currently for ORIF in the evening. Vitals/I&O/Wt Last Vital Signs Temp 97.6 F 10/28/21 15:29 Pulse 76 10/28/21 15:29 Resp 15 10/28/21 15:29 BP 124/67 10/28/21 15:29 Pulse Ox 100 10/28/21 15:29 O2 Del Method 10/28/21 15:29 O2 Flow Rate 4 10/28/21 09:32 10/28/21 10/28/21 10/28/21 06:59 14:59 22:59 Intake Total 1050 / 1050 Balance 1050 / 1050 Weight last 48 hrs Weight 44.452 kg Physical Exam Const: COMMON NORMALS: no acute distress and patient oriented x3 HENMT: COMMON NORMALS: normocephalic HEAD & SCALP: normocephalic Eye: COMMON NORMALS: Equal, round and reactive pupils present and EOMs intact bilaterally PUPIL: Yes Equal, round and reactive pupils present Neck/C-Spine: COMMON NORMALS: no JVD Resp: COMMON NORMALS: normal respiratory effort, No retractions, No use of accessory muscles and clear to auscultation bilaterally AUSCULTATION: clear to auscultation bilaterally Cardio: COMMON NORMALS: no JVD, regular rate, regular rhythm, S1 normal heart sound present and S2 normal heart sound present RATE: regular rate RHYTHM: regular rhythm HEART SOUNDS: S1 normal heart sound present and S2 normal heart sound present GI: COMMON NORMALS: Normal to inspection, nondistended, normoactive bowel sounds present, Soft to palpation, non-tender, No hepatosplenomegaly present, no masses and no bruits PALPATION: Yes Soft to palpation and Yes No hepatosplenomegaly present Extremity: COMMON NORMALS: no calf tenderness and no pedal edema Neuro: COMMON NORMALS: patient oriented x3 Psych: COMMON NORMALS: mental status grossly normal Urinary Catheter Management: Vargas: Cath Placed During This Visit: yes Urinary Catheter Date of Insertion: 10/28/21 Urinary Catheter Time of Insertion: 01:00 Data : 10/28/21 01:29 10/28/21 01:29 A&P Assessment and plan (1) Closed hip fracture: Status: Acute (2) Centrilobular emphysema: Status: Chronic Plan Left hip fracture: Orthopedic consulted. Plan for ORIF in a.m. Physical therapy, pain medication, anticoagulation as per orthopedic team. Hypertension: Blood pressure less than 140/90 mmHg. Blood pressure elevated most likely secondary to pain. For now continue home dose of Coreg and lisinopril. Monitor hemoglobin and CMP. Case management consulted for discharge planning. Physical therapy postoperatively. Next NPO. Regular diet postoperatively. Protonix for PUD prophylaxis Full code. Attestations Medical Necessity Statement*: Requires further hospitalization for further management of left hip fracture requiring ORIF Time Spent in Patient Care: Greater than 35 minutes Coding Level of Care Code Acute Sole Layer Hand for Kristel Fwd Diagnoses Closed hip fracture S72.009A Centrilobular emphysema J43.2
[2021-10-28] MEDS: CELEcoxib 200 mg Capsule 400 MG PO (18:13)
[2021-10-28] MEDS: acetaminophen 1,000 MG/100 ML PIGGYBACK 400 MG IV ×2 (18:26→23:00)
--- NOTE | 2021-10-28 18:28 | PM.CONSULT ---
Providers/Reason For Consult Consulting Physician/Specialty*: Ashli Frausto MD Reason for Consult*: Left Subcapital Hip Fracture Requesting Physician: Grant Schmitz MD Attending Physician: Antonino Mathis MD Primary Care Provider: TERRELL Hopper History of Present Illness History of Present Illness Karin Garcia is a 71 year old female who presented to the emergency department last evening after a fall at home. The patient notes that she bent over to pick something up from the floor when she fell onto her side. The patient did hit her head, but she does not describe any reason for her fall. When asked if she blacked out , she said maybe for couple minutes. She called out for her son and she was unable to walk. She therefore was brought to the emergency department the following evening as she continued to be unable to walk. Upon presentation, she was seen and evaluated by the hospitalist service as she has quite a few medical issues including emphysema, hypertension, hyperlipidemia, GERD, generalized anxiety disorder, and a heavy smoking history having quit a few years ago. Review of Systems Const: Denies: fever(s) or chills Eyes: Denies: change in vision ENMT: Denies: mouth pain Card: Denies: chest pain or palpitations Resp: Reports: non-productive cough; Denies: dyspnea GI: Denies: abdominal pain, nausea, vomiting or diarrhea : Denies: difficulty voiding or dysuria Musc: Reports: extremity pain; Denies: joint warmth Skin/Breast: Denies: rash or new lesions Neuro: Denies: headache(s), numbness in extremities, weakness in extremities or dizziness Psych: Reports: other (Normal mood) Alfredo/Lymph: Denies: easy bruising Medications/Allergies Home Medications Medication Instructions Recorded Confirmed Last Taken Type oxygen concentrator with portable #1 ea 02/04/21 10/27/21 Unknown Rx oxygen atorvastatin 20 mg tablet 20 mg PO DAILY #30 tabs 07/23/21 10/27/21 10/25/21 Rx fluticasone propionate 110 2 puff inhalation BID #12 grams 07/23/21 10/27/21 Unknown Rx mcg/actuation HFA aerosol inhaler (Flovent HFA) ipratropium 0.5 mg-albuterol 3 mg 3 ml inhalation Q4H PRN wheezing 07/23/21 10/27/21 Unknown Rx (2.5 mg base)/3 mL nebulization #180 mL soln magnesium oxide 400 mg PO BID #180 tabs 07/23/21 10/27/21 10/25/21 Rx cholecalciferol (vitamin D3) 125 5,000 unit PO DAILY 10/27/21 10/27/21 10/25/21 History mcg (5,000 unit) tablet (Vitamin D3) famotidine 40 mg tablet 40 mg PO BEDTIME 10/27/21 10/27/21 10/25/21 History lisinopril 40 mg tablet 40 mg PO DAILY 10/27/21 10/27/21 10/25/21 History trazodone 50 mg tablet 50 mg PO BEDTIME 10/27/21 10/27/21 10/25/21 History venlafaxine 75 mg capsule,extended 75 mg PO DAILY 10/27/21 10/27/21 10/25/21 History release 24 hr Allergies Allergy/AdvReac Type Severity Reaction Status Date / Time No Known Allergies Allergy Unverified 07/27/21 16:57 Current Medications Generic Name Dose Route Start Last Admin Trade Name Freq PRN Reason Stop Dose Admin Aspirin 81 mg 10/28/21 00:45 10/28/21 01:37 Aspirin 81 Mg Ec Tablet PO 81 mg Q24H VARGAS Administration Atorvastatin Calcium 20 mg 10/28/21 09:00 10/28/21 08:24 Atorvastatin 40 Mg Tablet PO 20 mg DAILY VARGAS Administration Carvedilol 3.125 mg 10/28/21 00:40 10/28/21 17:10 Carvedilol 3.125 Mg Tablet PO 3.125 mg BID VARGAS Administration Acetaminophen 1,000 mg in 100 mls @ 400 mls/hr 10/28/21 19:00 10/28/21 18:26 Acetaminophen IV 10/28/21 19:14 400 mls/hr DIRECTOR PUBLIC ONE Administration Sodium Chloride 1,000 mls @ 100 mls/hr 10/27/21 23:14 10/28/21 10:35 Sodium Chloride 0.9% IV 100 mls/hr .Q10H VARGAS Administration Lisinopril 40 mg 10/28/21 09:00 10/28/21 08:24 Lisinopril 20 Mg Tablet PO 40 mg DAILY VARGAS Administration Morphine Sulfate 4 mg 10/27/21 21:04 10/28/21 07:13 Morphine 4 Mg/Ml Sdv 1 Ml IVP 4 mg Q4H PRN Administration SEVERE PAIN Pantoprazole Sodium 40 mg 10/27/21 23:14 10/28/21 00:21 Pantoprazole 40 Mg Sdv IVP 40 mg Q24H VARGAS Administration Venlafaxine HCl 75 mg 10/28/21 09:00 10/28/21 08:25 Venlafaxine Er (24hr) 75 Mg Capsule PO 75 mg DAILY VARGAS Administration Vitamin D 5,000 unit 10/28/21 09:00 10/28/21 08:25 Cholecalciferol (Vitamin D3) 5,000 Unit Tablet PO 5,000 unit DAILY VARGAS Administration PFSH Acute PFSH: Medical History (Updated 10/28/21 @ 18:48 by Ashli Frausto MD) Allergic rhinitis due to pollen Centrilobular emphysema Gastro-esophageal reflux disease without esophagitis Generalized anxiety disorder History of TB (tuberculosis) Hypertension Mixed hyperlipidemia Neuropathy Personal history of nicotine dependence Vitamin D insufficiency Surgical History History of section History of colonoscopy 2016 Hx of total hysterectomy with BSO Family History Other Bleeding disorder Cancer Diabetes Stroke Thyroid disease Social History Smoking and tobacco status: former smoker Second hand smoke exposure: Yes Smoking risk assessment/counseling performed?: Yes Alcohol intake: never Desire information about alcohol rehabilitation?: No Counseling given: No Desire information about substance/drug rehabilitation?: No Counseling given: No Adopted: No Caregiver/support person: No Lives independently: Yes Household members: family Housing: House Marital status: Number of children: 4 service: No Current occupational status: retired Current occupational exposures/hazards: No History of recent travel: No Current gender identity: Female Dietary Habits: Current diet type/program: regular Caffeine: Yes Safety: Seatbelt use: always Helmet use: No Drive intoxicated or ride with 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 Vitals/I&O/Wt Last Vital Signs Temp 98 F 10/28/21 17:57 Pulse 93 10/28/21 17:57 Resp 19 H 10/28/21 17:57 BP 159/89 09/13/22 17:57 Pulse Ox 100 10/28/21 17:57 O2 Del Method 10/28/21 17:57 O2 Flow Rate 4 10/28/21 17:57 10/28/21 10/28/21 10/28/21 06:59 14:59 22:59 Intake Total 1050 / 1050 Balance 1050 / 1050 Weight last 48 hrs Weight 98 lb Physical Exam Const: COMMON NORMALS: no acute distress, average body habitus, patient oriented x3 and alert GENERAL APPEARANCE: cooperative and comfortable ORIENTATION/CONSCIOUSNESS: Yes awake HENMT: COMMON NORMALS: normocephalic and atraumatic HEAD & SCALP: normocephalic and atraumatic Eye: GENERAL EYE: appearance normal, both eyes and all related structures Chest: COMMONS NORMALS: normal inspection of the chest Resp: COMMON NORMALS: normal respiratory effort EFFORT & INSPECTION: Yes able to speak in complete sentences and Yes symmetric chest movement Extremity: LEFT LOWER EXTREMITY: Yes hip joint (Pain to any range of motion.) Left hip: Yes neurovascular exam (Intact distally including sensation.) and Yes other (Shortened and rotated.) Neuro: COMMON NORMALS: patient oriented x3 SENSORIUM/ORIENTATION: Yes alert Psych: COMMON NORMALS: mental status grossly normal APPEARANCE: Yes grossly normal ATTITUDE: Yes calm and Yes engaged ATTENTION/CONCENTRATION: Yes attention grossly intact Skin: COMMON NORMALS: no rashes or lesions noted GENERAL SKIN EXAM: no rashes or lesions noted Urinary Catheter Management: Vargas: Cath Placed During This Visit: yes Urinary Catheter Date of Insertion: 10/28/21 Urinary Catheter Time of Insertion: 01:00 Data : 10/28/21 01:29 10/28/21 01:29 Xray Ortho: My impression: I have personally reviewed the imaging studies on this patient. Imaging studies include an AP pelvis as well as isolated AP and lateral of the patient's left hip. The patient has a displaced subcapital hip fracture with no evidence of more distal femoral extension. A&P Assessment and plan (1) Subcapital fracture of left hip: This 71-year-old woman was admitted through the emergency department last evening with diagnosis of a left subcapital hip fracture. She was unable to ambulate following a fall the day prior to presenting to the emergency department. Upon review of imaging studies, I am in agreement with the diagnosis of subcapital hip fracture, and I have discussed at length with the patient the procedure in the form of a bipolar hip arthroplasty. The patient is 4 foot 11 and 98 pounds, and for this reason, we have obtained smaller prostheses. This may have to be a unipolar if we are unable to get to an appropriate size to fit a bipolar. Risks and complications are discussed with the patient. Consents were signed preoperatively. 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
--- NOTE | 2021-10-28 18:40 | ANES.PREANE2 ---
Pre-Anesthetic Assessment Height/Weight: Height 1.5 m Weight 44.452 kg Temp Pulse Resp BP Pulse Ox O2 Del Method O2 Flow Rate 98 F 93 19 H 159/89 100 4 10/28/21 17:57 10/28/21 17:57 10/28/21 17:57 10/28/21 17:57 10/28/21 17:57 10/28/21 17:57 10/28/21 17:57 Preop Diagnosis: Left Subcapital Hip Fracture Operation Date: 10/28/21 18:40 Proposed Procedures p Hemiarthroplasty Hip(Left) - Ashli Frausto MD Familial anesthetic complications: None Social Tobacco and No alcohol Exam alert, oriented x 3 and regular rate & rhythm Airway Submandibular: within normal limits Cervical ROM: within normal limits Mallampati: Class II Dentition: chipped Pulmonary Chronic Obstructive Pulmonary Disease Home O2 CV/HEM Coronary Artery Disease, Hypertension and Myocardial Infarction (Recent NSTEMI) Metabolic Hyperlipidemia chronic steroids Anesthetic Plan ASA status: 3 Anesthesia: Regional (specify below) (SAB) Medications/Allergies Home Medications Medication Instructions Recorded Confirmed Last Taken Type oxygen concentrator with portable #1 ea 02/04/21 10/27/21 Unknown Rx oxygen atorvastatin 20 mg tablet 20 mg PO DAILY #30 tabs 07/23/21 10/27/21 10/25/21 Rx fluticasone propionate 110 2 puff inhalation BID #12 grams 07/23/21 10/27/21 Unknown Rx mcg/actuation HFA aerosol inhaler (Flovent HFA) ipratropium 0.5 mg-albuterol 3 mg 3 ml inhalation Q4H PRN wheezing 07/23/21 10/27/21 Unknown Rx (2.5 mg base)/3 mL nebulization #180 mL soln magnesium oxide 400 mg PO BID #180 tabs 07/23/21 10/27/21 10/25/21 Rx cholecalciferol (vitamin D3) 125 5,000 unit PO DAILY 10/27/21 10/27/21 10/25/21 History mcg (5,000 unit) tablet (Vitamin D3) famotidine 40 mg tablet 40 mg PO BEDTIME 10/27/21 10/27/21 10/25/21 History lisinopril 40 mg tablet 40 mg PO DAILY 10/27/21 10/27/21 10/25/21 History trazodone 50 mg tablet 50 mg PO BEDTIME 10/27/21 10/27/21 10/25/21 History venlafaxine 75 mg capsule,extended 75 mg PO DAILY 10/27/21 10/27/21 10/25/21 History release 24 hr Allergies Allergy/AdvReac Type Severity Reaction Status Date / Time No Known Allergies Allergy Unverified 07/27/21 16:57 Current Medications Generic Name Dose Route Start Last Admin Trade Name Diane PRN Reason Stop Dose Admin Aspirin 81 mg 10/28/21 00:45 10/28/21 01:37 Aspirin 81 Mg Ec Tablet PO 81 mg Q24H VARGAS Administration Atorvastatin Calcium 20 mg 10/28/21 09:00 10/28/21 08:24 Atorvastatin 40 Mg Tablet PO 20 mg DAILY VARGAS Administration Carvedilol 3.125 mg 10/28/21 00:40 10/28/21 17:10 Carvedilol 3.125 Mg Tablet PO 3.125 mg BID VARGAS Administration Acetaminophen 1,000 mg in 100 mls @ 400 mls/hr 10/28/21 19:00 10/28/21 18:26 Acetaminophen IV 10/28/21 19:14 400 mls/hr NURSE GENERAL DUTY ONE Administration Sodium Chloride 1,000 mls @ 100 mls/hr 10/27/21 23:14 10/28/21 10:35 Sodium Chloride 0.9% IV 100 mls/hr .Q10H VARGAS Administration Lisinopril 40 mg 10/28/21 09:00 10/28/21 08:24 Lisinopril 20 Mg Tablet PO 40 mg DAILY VARGAS Administration Morphine Sulfate 4 mg 10/27/21 21:04 10/28/21 07:13 Morphine 4 Mg/Ml Sdv 1 Ml IVP 4 mg Q4H PRN Administration SEVERE PAIN Pantoprazole Sodium 40 mg 10/27/21 23:14 10/28/21 00:21 Pantoprazole 40 Mg Sdv IVP 40 mg Q24H VARGAS Administration Venlafaxine HCl 75 mg 10/28/21 09:00 10/28/21 08:25 Venlafaxine Er (24hr) 75 Mg Capsule PO 75 mg DAILY AVRGAS Administration Vitamin D 5,000 unit 10/28/21 09:00 10/28/21 08:25 Cholecalciferol (Vitamin D3) 5,000 Unit Tablet PO 5,000 unit DAILY VARGAS Administration PFSH Anesthesia Medical History Allergic rhinitis due to pollen Centrilobular emphysema Gastro-esophageal reflux disease without esophagitis Generalized anxiety disorder History of TB (tuberculosis) Hypertension Mixed hyperlipidemia Neuropathy Personal history of nicotine dependence Vitamin D insufficiency Surgical History History of section History of colonoscopy 2016 Hx of total hysterectomy with BSO Family History Other Bleeding disorder Cancer Diabetes Stroke Thyroid disease Social History Smoking and tobacco status: former smoker Second hand smoke exposure: Yes Smoking risk assessment/counseling performed?: Yes Alcohol intake: never Desire information about alcohol rehabilitation?: No Counseling given: No Desire information about substance/drug rehabilitation?: No Counseling given: No Adopted: No Caregiver/support person: No Lives independently: Yes Household members: family Housing: House Marital status: Number of children: 4 service: No Current occupational status: retired Current occupational exposures/hazards: No History of recent travel: No Current gender identity: Female Data Anesthesia : 10/28/21 01:29 10/28/21 01:29 Short CBC 10/27/21 10/28/21 Range/Units 21:00 01:29 WBC 9.4 7.8 (4.0-10.0) 10^3/uL Hgb 10.9 L 10.4 L (11.5-15.3) g/dL Hct 36.3 L 35.6 L (37.0-47.0) % MCV 90.5 92.0 (81-99) fl Plt Count 279 264 (130-400) 10^3/cmm Neut % (Auto) 82.6 76.6 % Neut # (Auto) 7.79 H 5.94 (1.8-7.7) 10^3/uL BMP 10/27/21 10/28/21 21:00 01:29 Sodium 136 138 Potassium 3.9 3.8 Chloride 92 L 94 L Carbon Dioxide 32 H 34 H BUN 12 11 Creatinine 0.4 L 0.5 Glucose 104 105 Calcium 9.9 9.8 Cardiac Enzymes 10/27/21 10/27/21 10/28/21 Range/Units 21:00 22:58 06:58 Troponin T Baseline 60 H 81 H (0-10) ng/L Troponin T 120 Minute 104.1 H (0-10) ng/L Delta Troponin T 44.1 H* (0-10) ABS# Troponin T Hi Sens 6Hr (0-10) ng/L Troponin T Hi Sens 6Hr Delta (0-12) ng/L 10/28/21 10/28/21 Range/Units 08:55 13:14 Troponin T Baseline (0-10) ng/L Troponin T 120 Minute 72.98 H (0-10) ng/L Delta Troponin T -8.02 L (0-10) ABS# Troponin T Hi Sens 6Hr 61.87 H (0-10) ng/L Troponin T Hi Sens 6Hr Delta -19.13 L (0-12) ng/L Urine 10/28/21 Range/Units 07:55 Urine Color Yellow (Yellow) Urine Appearance Clear (CLEAR) Urine pH 6 (5-7) Ur Specific [place] 1.020 (1.005-1.030) Urine Protein Trace (Negative) Urine Glucose (UA) Norm (Normal) Urine Ketones 1+ H (Negative) Urine Nitrate Negative (Negative) Urine Bilirubin Neg (Negative) Ur Leukocyte Esterase Negative (Negative) Urine RBC 25-40 H (0-2) /hpf Urine WBC 5-10 H (0-5) /hpf Blood Bank 10/27/21 21:00 Blood Type B Positive Rho(D) Type Positive Antibody Screen Negative Coags 10/27/21 21:00 PT 13.10 INR 0.96 APTT 26.7 Cardiac Studies: Echocardiogram 10/28/21
[2021-10-28] MEDS: sodium chloride 0.9% 1,000 ML 30 ML IV (18:50)
[2021-10-28] MEDS: ceFAZolin 1,000 mg SDV 1000 MG IRRIGATION (20:00)
[2021-10-28] MEDS: vancomycin 1,000 MG SDV 1000 MG XX (20:01)
--- NOTE | 2021-10-28 21:04 | XRR_ITS ---
PROCEDURE INFORMATION: Exam: XR Pelvis Exam date and time: 10/28/2021 9:12 PM Age: 71 years old Clinical indication: Injury or trauma; Other: Post bipolar hip arthro; Fracture of pelvis & hip; Left; Traumatic fracture; Neck of femur, base; Not specified; Prior surgery; Additional info: Status post bipolar hip arthroplasty, low ap pelvis TECHNIQUE: Imaging protocol: Radiologic exam of the pelvis. Views: 1 or 2 view. COMPARISON: CR XR pelvis 1-2V* [id number] 10/27/2021 9:40 PM FINDINGS: Bones/joints: Left hip arthroplasty changes in place with postsurgical soft tissue changes. Soft tissues: See Bones/joints finding. Vasculature: Scattered vascular calcifications. XR/XR pelvis 1-2V* [id number] IMPRESSION: 1. Left hip arthroplasty changes in place with postsurgical soft tissue changes. 2. Scattered vascular calcifications.
--- NOTE | 2021-10-28 21:08 | PM.OP ---
Operative Report Date of procedure: October 28, 2021 Pre-op diagnosis: Left Subcapital Hip Fracture Post-op diagnosis: Left Subcapital Hip Fracture Post-op findings: Subcapital left hip fracture displaced Procedure done: Left bipolar hip arthroplasty Implants: Renae hip system with a size 4 Accolade II 127 degree neck angle hip stem with a universal head bipolar component size 43 mm outer diameter by 26 mm inner diameter and a femoral head with a 26 mm inner diameter by -3 mm femoral offset Specimens removed/disposition: Femoral head, disposed of Surgeon: Ashli Frausto Garbage Collection Supervisor: [facility] operating room technicians Anesthesia: MAC (With spinal, ASA 3) Estimated blood loss (mL): 100 IV fluids (mL): 700 Urine output (mL): 500 Complications: None Findings: Hip is stable with 90 degrees of flexion and 80 degrees of internal rotation with 30 degrees of adduction Condition: stable Disposition: PACU (Then return to floor for postoperative rehabilitation and pain management) Brief History: Karin Garcia is a 71 year old female who presented to the emergency department last evening after a fall at home.? The patient notes that she bent over to pick something? up from the floor when she fell onto her side.? The patient did hit her head, but she does not describe any reason for her fall.? When asked if she blacked out , she said maybe for couple minutes.? She called out for her son and she was unable to walk.? She therefore was brought to the emergency department the following evening as she continued to be unable to walk.? Upon presentation, she was seen and evaluated by the hospitalist service as she has quite a few medical issues including emphysema, hypertension, hyperlipidemia, GERD, generalized anxiety disorder, and a heavy smoking history having quit a few years ago. She was found to have a left subcapital hip fracture which was displaced. The patient was scheduled for the above procedure. Procedure: Patient was brought to the operating theater.? She was transferred to the operating room table.? The patient underwent spinal anesthesia with MAC, ASA 3. Following administration of adequate anesthesia, the patient was placed in full lateral position and held in position with a pegboard.? The patient's left lower extremity was then prepped and draped in usual fashion utilizing DuraPrep.? It was draped free.? Following prepping and draping, a surgical pause was performed. At the time of surgical pause, we identified the site and side of surgery.? We also identified the patient and preoperative surgical markings.? Confirmation was made of equipment availability.? Additionally, the patient's preoperative IV antibiotic, Ancef 2 g, was confirmed as being given in a timely fashion and being the appropriate antibiotic.? Following the surgical pause, an incision was made centering over the patient's greater trochanter continuing proximally and distally as necessary to allow access to the hip joint.? Dissection continued through skin and soft tissues using a scalpel, and hemostasis was obtained using electrocautery. The tensor fascia edna was identified and incised longitudinally.? Sciatic nerve was identified and protected throughout the surgical procedure.? A Charnley U retractor was placed after the tensor fascia edna had been incised longitudinally, and the sciatic nerve had been identified.? The piriformis muscle was identified and tagged. Piriformis muscle along with the remaining short external rotators were then incised from the posterior aspect of the hip joint. These were retracted posteriorly. ? The capsule was entered in a T-type fashion with the edges being tagged.? The hip was then dislocated. Following hip dislocation, the femoral head was removed and measured. The neck was noted to be quite long and a femoral neck osteotomy was accomplished as well. We then evaluated the acetabulum.? Ligamentum was removed. Prominent labrum was removed as well. Trial femoral heads were then placed to determine appropriate size for the universal head component of the bipolar. The 43 gave excellent fit and fill. Therefore this was to be the chosen component. Initially, we trialed with a size 5, but this was found to be too long even with the shortest head. Therefore, we replaced the size 4 into the femoral canal allowing the stem to seat further into the canal. A calcar reamer was used to remove proximal bone from around the prosthesis. A trial reduction was then accomplished with a -3 femoral head inside of the 43 mm bipolar component. With this construct, we had the above noted stabilities under findings. Therefore, trial components were removed after the hip was dislocated.? The size 4 Accolade II 127 degree neck angle hip stem was impacted into position without difficulty and onto this was placed a -3 mm offset by 26 mm outer diameter femoral head inside of the universal head bipolar component size 43 mm outer diameter by 26 mm inner diameter. With this construct, we had the above-noted stability.? The stem was noted to seat nicely prior to placement of the femoral head and bipolar construct.? The wound was copiously irrigated with Betadine.? At this time, with all components in appropriate position, the hip was reduced.? Following reduction of the prosthesis once again, we confirmed the stability of the hip.? Leg lengths were also felt to be satisfactory. Being satisfied with the prosthesis, attention was directed to closure.? Closure was accomplished with 0 Vicryl in the capsular tissues.? Piriformis was reattached with 0 Vicryl as well.? Tensor fascia edna was closed with 0 Vicryl in an interrupted fashion.? The subcutaneous tissues were closed with 2-0 Monocryl.? Vancomycin powder and a Gelfoam thrombin mixture was placed into the wound as well.? The skin was closed with 4-0 Monocryl followed by Dermabond, Prineo, and OpSite.? The patient was placed in an abduction pillow.? She was returned the Recovery Room in a satisfactory condition and will be discharged to the floor for postoperative rehabilitation and pain management.? There were no complications. Related Problem List Diagnoses (1) Subcapital fracture of left hip:
[2021-10-28] MEDS: trazodone 50 mg Tablet PO (22:55)
[2021-10-28] MEDS: chlorhexidine gluconate 0.12% Btl 473 mL 30 ML MUCOUS MEM (22:57)
[2021-10-29] VITALS (15 sets, daily range): BP systolic 102–156; BP diastolic 65–81; PULSE 60–99; RESP 14–20; TEMP 36.4–36.7; O2SAT 90–100
[2021-10-29] MEDS: TRAMadol 50 mg Tablet PO ×3 (00:57→22:12)
[2021-10-29 03:25] LABS: Basophils # 0.1 10^3/uL (0.0-0.1); Basophils % 0.4 %; Eosinophils # 0.2 10^3/uL (0.0-0.8); Eosinophils % 1.5 %; Hematocrit 30.7 % (37.0-47.0); Hemoglobin 8.9 g/dL (11.5-15.3); Lymphocytes # 0.7 10^3/uL (0.8-4.8); Lymphocytes % 5.1 %; Mean Corpuscular Hemoglobin 27.1 pg (28.0-34.0); Mean Corpuscular Volume 93.3 fl (81-99); Mean Platelet Volume 12.2 fL (7.4-10.4); Monocytes # 0.4 10^3/uL (0.2-0.9); Monocytes % 2.7 %; Neutrophils # 12.22 10^3/uL (1.8-7.7); Nucleated Red Blood Cells % 0 %; Platelet Count 215 10^3/cmm (130-400); Red Blood Count 3.29 10^6/uL (4.1-5.3); White Blood Count 13.6 10^3/uL (4.0-10.0)
[2021-10-29 03:45] LABS: Alanine Aminotransferase 11 U/L (0-33); Albumin Level 2.3 g/dL (3.5-5.2); Alkaline Phosphatase 68 U/L (35-105); Anion Gap 12.6 (5-19); Aspartate Amino Transferase 21 U/L (0-32); Blood Urea Nitrogen 12 mg/dL (8-23); Calcium 8.8 mg/dL (8.5-10.5); Carbon Dioxide 28 mmol/L (22-29); Chloride 99 mmol/L (98-107); Globulin 2.7 g/dL (1.3-4.6); Glucose 181 mg/dL (65-115); Osmolality Calculated 286 mOsm/kg (285-295); Potassium 3.6 mmol/L (3.5-5.1); Sodium 136 mmol/L (136-145); Total Bilirubin 0.2 mg/dL (0.15-1.2)
[2021-10-29] MEDS: ceFAZolin 2,000 MG in sodium chloride 0.9% (plus) 50 ML 100 MG IV ×2 (06:45→13:17)
--- NOTE | 2021-10-29 06:53 | PC.NURSE ---
As I was scanning in bag two of the acetaminophen IV, it said patient was over on doseage for the 24 hours. I called pharm and they said they will look into this and get back with the day nurse. Sam was removed with no issue. call light in reach and bed low and locked
--- NOTE | 2021-10-29 07:27 | ANE.PACU2 ---
Inpatient post-anesthesia follow up: Airway intact: Yes Vital signs: Temperature 97.2 F Pulse Rate 60 Respiratory Rate 17 Blood Pressure 104/66 Pulse Oximetry 90 Oxygen Delivery Me thod Nasal Cannula Oxygen Flow Rate 4 Fraction of Inspir ed Oxygen Hydration adequate: Yes Nausea and vomiting: No Pain level: 2 Mental status: Baseline
[2021-10-29] MEDS: oxyCODONE 5 mg IR Tab/Cap PO ×2 (07:43→23:51)
[2021-10-29] MEDS: ipratropium-albuterol 3 mL Neb INHALATION ×2 (08:43→18:02)
[2021-10-29] MEDS: multivitamin therapeutic Tablet 1 TAB PO (09:45)
[2021-10-29] MEDS: calcium carbonate 500 mg Chew Tablet 1000 MG PO ×2 (09:45→17:53)
[2021-10-29] MEDS: carvedilol 3.125 mg Tablet PO ×2 (09:45→17:51)
[2021-10-29] MEDS: cholecalciferol (vitamin D3) 1,000 unit Tablet 1000 UNIT PO (09:45)
[2021-10-29] MEDS: cholecalciferol (vitamin D3) 5,000 unit Tablet 5000 UNIT PO (09:46)
[2021-10-29] MEDS: atorvastatin 40 mg Tablet 20 MG PO (09:46)
[2021-10-29] MEDS: aspirin 325 mg EC Tablet PO (09:46)
[2021-10-29] MEDS: CELEcoxib 200 mg Capsule PO (09:46)
[2021-10-29] MEDS: lisinopril 20 mg Tablet 40 MG PO (09:46)
[2021-10-29] MEDS: iron polysaccharide complex 150 mg Capsule PO ×2 (09:47→17:50)
[2021-10-29] MEDS: venlafaxine ER (24HR) 75 mg Capsule PO (09:47)
[2021-10-29] MEDS: mupirocin oint 22 gm 1 APPLIC NASAL ×2 (09:47→17:51)
[2021-10-29] MEDS: sennosides-docusate Tablet 2 TAB PO ×2 (09:47→17:51)
[2021-10-29] MEDS: chlorhexidine gluconate 0.12% Btl 473 mL 30 ML MUCOUS MEM ×4 (09:48→20:21)
--- NOTE | 2021-10-29 15:11 | P.PN_ITS ---
Subjective Subjective: Patient is seen in her room. She is sitting up in a chair. She is adamant that, at the time of discharge, she would like to be discharged to home rather than to long term. I have spoken with the patient's son and he is in agreement with her going home rather than to long term. Medications: Reviewed: Yes Vitals/I&O/Wt Last Vital Signs Temp 97.7 F 10/29/21 11:51 Pulse 84 10/29/21 11:51 Resp 16 10/29/21 11:51 BP 118/67 10/29/21 11:51 Pulse Ox 99 10/29/21 11:51 O2 Del Method 10/29/21 11:51 O2 Flow Rate 4 10/29/21 08:46 10/29/21 10/29/21 10/29/21 06:59 14:59 22:59 Intake Total 50 / 3070 170 / 170 Output Total 400 / 2000 Balance -350 / 1070 170 / 170 Weight last 48 hrs Weight 98 lb Physical Exam Const: COMMON NORMALS: no acute distress, average body habitus, patient oriented x3 and alert GENERAL APPEARANCE: cooperative and comfortable ORIENTATION/CONSCIOUSNESS: Yes awake HENMT: COMMON NORMALS: normocephalic and atraumatic HEAD & SCALP: normocephalic and atraumatic Eye: GENERAL EYE: appearance normal, both eyes and all related structures Chest: COMMONS NORMALS: normal inspection of the chest Resp: COMMON NORMALS: normal respiratory effort EFFORT & INSPECTION: Yes able to speak in complete sentences and Yes symmetric chest movement Extremity: LEFT LOWER EXTREMITY: Yes hip joint (Dressing is dry and intact.) Left hip: Yes inspection (No significant swelling or ecchymosis.), Yes palpation (Nontender.), Yes ROM (Not evaluated.) and Yes neurovascular exam (Intact distally with no evidence of DVT) Neuro: COMMON NORMALS: patient oriented x3 SENSORIUM/ORIENTATION: Yes alert Psych: COMMON NORMALS: mental status grossly normal APPEARANCE: Yes grossly normal ATTITUDE: Yes calm and Yes engaged ATTENTION/CONCENTRATION: Yes attention grossly intact Skin: COMMON NORMALS: no rashes or lesions noted GENERAL SKIN EXAM: no rashes or lesions noted Urinary Catheter Management: Vargas: Cath Placed During This Visit: yes, but has since been removed by the nurse Reason for Continuing Indwelling Catheter: Other Urinary Catheter Date of Insertion: 10/28/21 Urinary Catheter Time of Insertion: 01:00 Date Urinary Catheter Removed: 10/29/21 Time Urinary Catheter Discontinued: 05:00 Data : 10/29/21 02:28 10/29/21 02:28 Micro: Microbiology 10/28/21 07:55 Urine Culture - Preliminary Urine,Clean Catch A&P Assessment and plan (1) Subcapital fracture of left hip: This 71-year-old woman was admitted through the emergency department last evening with diagnosis of a left subcapital hip fracture. Patient underwent left bipolar hip arthroplasty uneventfully. This is postop day 1, and she is sitting up in a chair and doing well. Status: Acute Qualifiers: Encounter type: initial encounter Fracture type: closed Qualified Code(s): S72.012A - Unspecified intracapsular fracture of left femur, initial encounter for closed fracture Attestations Medical Necessity Statement*: Ongoing care following hip fracture Coding Level of Care Code Acute Pressing Department Supervisor for [facility] [place] Diagnoses Subcapital fracture of left hip S72.012A Encounter type: initial encounter Fracture type: closed
--- NOTE | 2021-10-29 16:41 | P.PN_ITS ---
Subjective Subjective: Seen this morning. Patient is pretty comfortable in bed. She was having pain earlier but is feeling okay now. States she would like to go home and not to rehab. Vargas catheter was removed yesterday evening. We will stop her IV fluids today. She is to work with physical therapy today. Vitals/I&O/Wt Last Vital Signs Temp 97.6 F 10/29/21 15:42 Pulse 70 10/29/21 15:42 Resp 16 10/29/21 15:42 BP 105/66 10/29/21 15:42 Pulse Ox 99 10/29/21 15:42 O2 Del Method 10/29/21 15:42 O2 Flow Rate 4 10/29/21 08:46 10/29/21 10/29/21 10/29/21 06:59 14:59 22:59 Intake Total 50 / 3070 170 / 170 Output Total 400 / 2000 Balance -350 / 1070 170 / 170 Weight last 48 hrs Weight 44.452 kg Physical Exam Narrative: General: Alert oriented x3, patient seen sitting up in bed appea ring comfortable at this time. HEENT: Normocephalic, atraumatic, EOMI, breathing 2 L nasal cannula Cardio: Regular rate rhythm, normal S1-S2 Respiratory: Very diminished bilateral air entry, no wheezes no rhonchi GI: Abdomen soft, nontender, nondistended, bowel sounds + Extremities: Dressing dry and intact at left hip, nontender to palpation, no swelling noted. Brace in place. Urinary Catheter Management: Vargas: Cath Placed During This Visit: yes, but has since been removed by the nurse Reason for Continuing Indwelling Catheter: Other Urinary Catheter Date of Insertion: 10/28/21 Urinary Catheter Time of Insertion: 01:00 Date Urinary Catheter Removed: 10/29/21 Time Urinary Catheter Discontinued: 05:00 Data : 10/29/21 02:28 10/29/21 02:28 Micro: Microbiology 10/28/21 07:55 Urine Culture - Preliminary Urine,Clean Catch A&P Assessment and plan (1) Subcapital fracture of left hip: Status: Acute Qualifiers: Encounter type: initial encounter Fracture type: closed Qualified Code(s): S72.012A - Unspecified intracapsular fracture of left femur, initial encounter for closed fracture (2) Closed hip fracture: Status: Acute (3) Centrilobular emphysema: Status: Chronic (4) Personal history of nicotine dependence: Status: Chronic (5) Generalized anxiety disorder: Status: Chronic (6) Allergic rhinitis due to pollen: Status: Chronic (7) Gastro-esophageal reflux disease without esophagitis: Status: Chronic (8) Mixed hyperlipidemia: Status: Chronic (9) Hypertension: Status: Chronic Qualifiers: Hypertension type: essential hypertension Qualified Code(s): I10 - Essential (primary) hypertension (10) Vitamin D insufficiency: Status: Chronic Plan Left hip fracture: Orthopedic consulted. Plan for ORIF in a.m. Physical therapy, pain medication, anticoagulation as per orthopedic team. Hypertension: Blood pressure less than 140/90 mmHg. Blood pressure elevated most likely secondary to pain. For now continue home dose of Coreg and lisinopril. Monitor hemoglobin and CMP. #Postop atelectasis Incentive spirometer, flutter valve Mobilize out of bed On 4 L nasal cannula at this time which is her baseline. Does have diminished air entry. Case management consulted for discharge planning. Physical therapy postoperatively.? Next NPO. Regular diet postoperatively. Protonix for PUD prophylaxis Full code. Attestations Medical Necessity Statement*: Plan for discharge in next 24 to 48 hours. Awaiting physical therapy consult. Will need aggressive pulmonary toilet as well. Coding Level of Care Code Acute Mold Operator for [facility] [place] Diagnoses Subcapital fracture of left hip S72.012A Encounter type: initial encounter Fracture type: closed Closed hip fracture S72.009A Centrilobular emphysema J43.2 Personal history of nicotine dependence Z87.891 Generalized anxiety disorder F41.1 Allergic rhinitis due to pollen J30.1 Gastro-esophageal reflux disease without esophagitis K21.9 Mixed hyperlipidemia E78.2 Hypertension I10 Hypertension type: essential hypertension Vitamin D insufficiency E55.9
[2021-10-30] VITALS (10 sets, daily range): BP systolic 100–117; BP diastolic 57–70; PULSE 68–102; RESP 14–20; TEMP 36.4–36.9; O2SAT 93–100
[2021-10-30] MEDS: pantoprazole 40 mg SDV IVP ×2 (00:09→21:56)
[2021-10-30] MEDS: aspirin 81 mg EC Tablet PO (00:09)
[2021-10-30 02:19] LABS: Basophils % 0.3 %; Eosinophils # 0.3 10^3/uL (0.0-0.8); Eosinophils % 2.5 %; Hematocrit 26.4 % (37.0-47.0); Hemoglobin 7.8 g/dL (11.5-15.3); Lymphocytes # 0.9 10^3/uL (0.8-4.8); Lymphocytes % 8.5 %; Mean Corpuscular HGB Conc 29.5 g/dL (30.0-36.0); Mean Corpuscular Hemoglobin 27.2 pg (28.0-34.0); Monocytes # 0.6 10^3/uL (0.2-0.9); Monocytes % 5.5 %; Neutrophils # 8.26 10^3/uL (1.8-7.7); Neutrophils % 82.7 %; Nucleated Red Blood Cells % 0 %; Platelet Count 197 10^3/cmm (130-400); Red Blood Count 2.87 10^6/uL (4.1-5.3)
[2021-10-30 02:46] LABS: Anion Gap 10.1 (5-19); Blood Urea Nitrogen 14 mg/dL (8-23); Calcium 9.2 mg/dL (8.5-10.5); Carbon Dioxide 31 mmol/L (22-29); Chloride 100 mmol/L (98-107); Glucose 110 mg/dL (65-115); Magnesium 1.7 mg/dL (1.7-2.3); Osmolality Calculated 285 mOsm/kg (285-295); Potassium 4.1 mmol/L (3.5-5.1); Sodium 137 mmol/L (136-145)
[2021-10-30] MEDS: multivitamin therapeutic Tablet 1 TAB PO (08:36)
[2021-10-30] MEDS: CELEcoxib 200 mg Capsule PO (08:36)
[2021-10-30] MEDS: calcium carbonate 500 mg Chew Tablet 1000 MG PO ×2 (08:36→17:44)
[2021-10-30] MEDS: carvedilol 3.125 mg Tablet PO ×2 (08:36→17:44)
[2021-10-30] MEDS: atorvastatin 40 mg Tablet 20 MG PO (08:36)
[2021-10-30] MEDS: aspirin 325 mg EC Tablet PO (08:36)
[2021-10-30] MEDS: venlafaxine ER (24HR) 75 mg Capsule PO (08:37)
[2021-10-30] MEDS: iron polysaccharide complex 150 mg Capsule PO ×2 (08:37→17:44)
[2021-10-30] MEDS: lisinopril 20 mg Tablet 40 MG PO (08:37)
[2021-10-30] MEDS: sennosides-docusate Tablet 2 TAB PO ×2 (08:37→17:44)
[2021-10-30] MEDS: cholecalciferol (vitamin D3) 5,000 unit Tablet 5000 UNIT PO (08:38)
[2021-10-30] MEDS: mupirocin oint 22 gm 1 APPLIC NASAL ×2 (08:42→17:43)
[2021-10-30] MEDS: cholecalciferol (vitamin D3) 1,000 unit Tablet 1000 UNIT PO (08:42)
[2021-10-30] MEDS: chlorhexidine gluconate 0.12% Btl 473 mL 30 ML MUCOUS MEM ×4 (08:43→20:03)
--- NOTE | 2021-10-30 12:59 | PM.PN ---
Subjective Subjective: The patient is sitting up in a chair without obvious pain. Calves are soft and nontender. She complains of being hungry. According to physical therapy, she cannot remember posterior hip precautions, but she is adamant about going home and states she will not go to a skilled facility. I have spoken with the family and they are willing to have her come home as well. She will need to continue ambulation with physical therapy and to have her hemoglobin monitored as it has been going down. Medications: Reviewed: Yes Vitals/I&O/Wt Last Vital Signs Temp 97.6 F 10/30/21 11:49 Pulse 88 10/30/21 11:49 Resp 16 10/30/21 11:49 BP 101/66 10/30/21 11:49 Pulse Ox 95 10/30/21 11:49 O2 Del Method 10/30/21 11:49 O2 Flow Rate 3 10/30/21 08:31 10/29/21 10/30/21 10/30/21 22:59 06:59 14:59 Intake Total 1150 / 1320 240 / 240 Balance 1150 / 1320 240 / 240 Physical Exam Const: COMMON NORMALS: no acute distress, average body habitus, patient oriented x3 and alert GENERAL APPEARANCE: cooperative and comfortable ORIENTATION/CONSCIOUSNESS: Yes awake HENMT: COMMON NORMALS: normocephalic and atraumatic HEAD & SCALP: normocephalic and atraumatic Eye: GENERAL EYE: appearance normal, both eyes and all related structures Chest: COMMONS NORMALS: normal inspection of the chest Resp: COMMON NORMALS: normal respiratory effort EFFORT & INSPECTION: Yes able to speak in complete sentences and Yes symmetric chest movement Extremity: LEFT LOWER EXTREMITY: Yes hip joint (Thigh is soft and nontender.) Left hip: Yes neurovascular exam (Intact distally.) Neuro: COMMON NORMALS: patient oriented x3 SENSORIUM/ORIENTATION: Yes alert Psych: COMMON NORMALS: mental status grossly normal APPEARANCE: Yes grossly normal ATTITUDE: Yes calm and Yes engaged ATTENTION/CONCENTRATION: Yes attention grossly intact Skin: COMMON NORMALS: no rashes or lesions noted GENERAL SKIN EXAM: no rashes or lesions noted Urinary Catheter Management: Vargas: Cath Placed During This Visit: yes, but has since been removed by the nurse Reason for Continuing Indwelling Catheter: Not indwelling catheter Urinary Catheter Date of Insertion: 10/28/21 Urinary Catheter Time of Insertion: 01:00 Date Urinary Catheter Removed: 10/29/21 Time Urinary Catheter Discontinued: 05:00 Data : 10/30/21 01:39 10/30/21 01:39 Micro: Microbiology 10/28/21 07:55 Urine Culture - Final Urine,Clean Catch A&P Assessment and plan (1) Subcapital fracture of left hip: DifficultThis 71-year-old woman was admitted through the emergency department last evening with diagnosis of a left subcapital hip fracture. Patient underwent left bipolar hip arthroplasty uneventfully. The patient was working with physical therapy today, he understanding and remembering posterior hip precautions. She will need further treatment with physical therapy and also, she will need continued monitoring as her H&H is slowly going down with current level at 7.8 and 26.4. She may be weightbearing as tolerated. Posterior hip precautions are important, and she will need to continue to work on these, but these should not preclude her from going home. At the time of discharge, DVT prophylaxis should be aspirin, 325 mg if she is able to tolerate it. Status: Acute Qualifiers: Encounter type: initial encounter Fracture type: closed Qualified Code(s): S72.012A - Unspecified intracapsular fracture of left femur, initial encounter for closed fracture Attestations Medical Necessity Statement*: Ongoing physical therapy and monitoring of postoperative anemia Coding Level of Care Code Acute Telehealth Coordinator for Kristel Fwmariano Exam Comprehensive Diagnoses Subcapital fracture of left hip S72.012A Encounter type: initial encounter Fracture type: closed
--- NOTE | 2021-10-30 13:20 | PM.PN ---
Subjective Subjective: Seen this morning. Patient's hemoglobin has steadily dropping since day of surgery. 7.8 today. We will continue to monitor. Otherwise patient feels well and has no complaints at this time. She also worked a little bit with physical therapy. The concern is that patient does not remember any over hip precautions he has to take while walking. Orthopedic surgeon Dr. Lee also spoke to patient's son regarding this. Patient seen sitting up in chair. She states her breathing is a lot better using incentive spirometer. She is at baseline oxygen 3 L at this time. Vitals/I&O/Wt Last Vital Signs Temp 97.6 F 10/30/21 11:49 Pulse 88 10/30/21 11:49 Resp 16 10/30/21 11:49 BP 101/66 10/30/21 11:49 Pulse Ox 95 10/30/21 11:49 O2 Del Method 10/30/21 11:49 O2 Flow Rate 3 10/30/21 08:31 10/29/21 10/30/21 10/30/21 22:59 06:59 14:59 Intake Total 1150 / 1320 240 / 240 Balance 1150 / 1320 240 / 240 Physical Exam Narrative: General: Alert oriented x3, patient seen sitting up in bed appearing comfortable at this time. HEENT: Normocephalic, atraumatic, EOMI, breathing 2 L nasal cannula Cardio: Regular rate rhythm, normal S1-S2 Respiratory: Very diminished bilateral air entry, no wheezes no rhonchi GI: Abdomen soft, nontender, nondistended, bowel sounds + Extremities: Dressing dry and intact at left hip, nontender to palpation, no swelling noted. Brace in place. Urinary Catheter Management: Vargas: Cath Placed During This Visit: yes, but has since been removed by the nurse Reason for Continuing Indwelling Catheter: Not indwelling catheter Urinary Catheter Date of Insertion: 10/28/21 Urinary Catheter Time of Insertion: 01:00 Date Urinary Catheter Removed: 10/29/21 Time Urinary Catheter Discontinued: 05:00 Data : 10/30/21 01:39 10/30/21 01:39 Micro: Microbiology 10/28/21 07:55 Urine Culture - Final Urine,Clean Catch A&P Assessment and plan (1) Subcapital fracture of left hip: Status: Acute Qualifiers: Encounter type: initial encounter Fracture type: closed Qualified Code(s): S72.012A - Unspecified intracapsular fracture of left femur, initial encounter for closed fracture (2) Closed hip fracture: Status: Acute (3) Centrilobular emphysema: Status: Chronic (4) Personal history of nicotine dependence: Status: Chronic (5) Generalized anxiety disorder: Status: Chronic (6) Allergic rhinitis due to pollen: Status: Chronic (7) Gastro-esophageal reflux disease without esophagitis: Status: Chronic (8) Mixed hyperlipidemia: Status: Chronic (9) Hypertension: Status: Chronic Qualifiers: Hypertension type: essential hypertension Qualified Code(s): I10 - Essential (primary) hypertension (10) Vitamin D insufficiency: Status: Chronic Plan Left hip fracture: Orthopedic consulted. Patient had ORIF 10/28/2021. Today's postop day 2 Physical therapy, pain medication, anticoagulation as per orthopedic team. Aspirin 325 daily x30 days for DVT prophylaxis. Hypertension: Blood pressure less than 140/90 mmHg. Blood pressure elevated most likely secondary to pain. For now continue home dose of Coreg and lisinopril. Monitor hemoglobin and CMP. #Postop atelectasis Incentive spirometer, flutter valve Mobilize out of bed On 3 L nasal cannula at this time which is her baseline. Does have diminished air entry. Patient doing better respiratory nunez. #Acute blood loss anemia. ? Hemoglobin 7.8 today. Continue to monitor. -Transfuse less than 7. Case management consulted for discharge planning. Physical therapy postoperatively.? Regular diet postoperatively. Protonix for PUD prophylaxis Full code. Will update family via phone today. Patient and patient's family not interested in going to rehab facility at this time. They would like to go home with home health. However patient is not remembering any of her posterior hip precautions. She will need help with family. I will discuss with family before discharge. Please see note by orthopedic surgeon today. Attestations Medical Necessity Statement*: Continue to monitor hemoglobin in the hospital. It is trending downward. Once stable will DC home. Coding Level of Care Code Acute Truck Driver Rubbish Collector for Kristel Muse Diagnoses Subcapital fracture of left hip S72.012A Encounter type: initial encounter Fracture type: closed Closed hip fracture S72.009A Centrilobular emphysema J43.2 Personal history of nicotine dependence Z87.891 Generalized anxiety disorder F41.1 Allergic rhinitis due to pollen J30.1 Gastro-esophageal reflux disease without esophagitis K21.9 Mixed hyperlipidemia E78.2 Hypertension I10 Hypertension type: essential hypertension Vitamin D insufficiency E55.9
[2021-10-30] MEDS: trazodone 50 mg Tablet PO (20:04)
[2021-10-30] MEDS: oxyCODONE 5 mg IR Tab/Cap PO (20:05)
[2021-10-30] MEDS: ipratropium-albuterol 3 mL Neb INHALATION (20:18)
[2021-10-31] VITALS (7 sets, daily range): BP systolic 107–112; BP diastolic 61–75; PULSE 77–95; RESP 15–20; TEMP 36.3–36.8; O2SAT 95–100
[2021-10-31 05:03] LABS: Basophils % 0.3 %; Eosinophils # 0.4 10^3/uL (0.0-0.8); Eosinophils % 5.4 %; Hemoglobin 7.5 g/dL (11.5-15.3); Lymphocytes # 0.9 10^3/uL (0.8-4.8); Lymphocytes % 13.8 %; Mean Corpuscular HGB Conc 28.8 g/dL (30.0-36.0); Mean Corpuscular Hemoglobin 27.1 pg (28.0-34.0); Mean Corpuscular Volume 93.9 fl (81-99); Mean Platelet Volume 11.8 fL (7.4-10.4); Monocytes # 0.5 10^3/uL (0.2-0.9); Monocytes % 7.6 %; Neutrophils # 4.69 10^3/uL (1.8-7.7); Neutrophils % 72.4 %; Nucleated Red Blood Cells % 0 %; Platelet Count 203 10^3/cmm (130-400); Red Blood Count 2.77 10^6/uL (4.1-5.3); White Blood Count 6.5 10^3/uL (4.0-10.0)
[2021-10-31 05:36] LABS: Anion Gap 10.1 (5-19); Blood Urea Nitrogen 13 mg/dL (8-23); Carbon Dioxide 33 mmol/L (22-29); Chloride 98 mmol/L (98-107); Glucose 82 mg/dL (65-115); Magnesium 1.9 mg/dL (1.7-2.3); Osmolality Calculated 283 mOsm/kg (285-295); Potassium 4.1 mmol/L (3.5-5.1); Sodium 137 mmol/L (136-145)
[2021-10-31] MEDS: CELEcoxib 200 mg Capsule PO (08:18)
[2021-10-31] MEDS: venlafaxine ER (24HR) 75 mg Capsule PO (08:18)
[2021-10-31] MEDS: cholecalciferol (vitamin D3) 1,000 unit Tablet 1000 UNIT PO (08:18)
[2021-10-31] MEDS: iron polysaccharide complex 150 mg Capsule PO ×2 (08:18→17:01)
[2021-10-31] MEDS: sennosides-docusate Tablet 2 TAB PO ×2 (08:19→17:01)
[2021-10-31] MEDS: aspirin 325 mg EC Tablet PO (08:19)
[2021-10-31] MEDS: multivitamin therapeutic Tablet 1 TAB PO (08:19)
[2021-10-31] MEDS: cholecalciferol (vitamin D3) 5,000 unit Tablet 5000 UNIT PO (08:20)
[2021-10-31] MEDS: atorvastatin 40 mg Tablet 20 MG PO (08:20)
[2021-10-31] MEDS: calcium carbonate 500 mg Chew Tablet 1000 MG PO ×2 (08:20→17:01)
[2021-10-31] MEDS: chlorhexidine gluconate 0.12% Btl 473 mL 30 ML MUCOUS MEM ×4 (08:22→20:48)
[2021-10-31] MEDS: mupirocin oint 22 gm 1 APPLIC NASAL ×2 (08:23→17:05)
[2021-10-31] MEDS: ipratropium-albuterol 3 mL Neb INHALATION (09:40)
[2021-10-31] MEDS: lisinopril 20 mg Tablet 40 MG PO (10:07)
[2021-10-31] MEDS: carvedilol 3.125 mg Tablet PO ×2 (10:08→17:01)
--- NOTE | 2021-10-31 13:00 | PM.PN ---
Subjective Subjective: seen this AM. patient sleeping. Denies pain, shortness of breath. overnight pt had a BM which was black. Nursing staff concerned for bleed?? FOBT sent off HB 7.5 today. PT raised concerns once again that pt did not remember her hip precautions. Vitals/I&O/Wt Last Vital Signs Temp 98.1 F 10/31/21 11:21 Pulse 95 10/31/21 11:21 Resp 20 H 10/31/21 11:21 BP 110/63 10/31/21 11:21 Pulse Ox 95 10/31/21 11:21 O2 Del Method 10/31/21 11:21 O2 Flow Rate 3 10/31/21 09:40 10/30/21 10/31/21 10/31/21 22:59 06:59 14:59 Intake Total 240 / 720 360 / 1080 840 / 840 Output Total 600 / 600 Balance -360 / 120 360 / 480 840 / 840 Physical Exam Narrative: General: Alert oriented x3, patient seen sitting up in bed appearing comfortable at this time. HEENT: Normocephalic, atraumatic, EOMI, breathing 2 L nasal cannula Cardio: Regular rate rhythm, normal S1-S2 Respiratory: Very diminished bilateral air entry, no wheezes no rhonchi GI: Abdomen soft, nontender, nondistended, bowel sounds + Extremities: Dressing dry and intact at left hip, nontender to palpation, no swelling noted. Urinary Catheter Management: Vargas: Cath Placed During This Visit: yes, but has since been removed by the nurse Reason for Continuing Indwelling Catheter: Not indwelling catheter Urinary Catheter Date of Insertion: 10/28/21 Urinary Catheter Time of Insertion: 01:00 Date Urinary Catheter Removed: 10/29/21 Time Urinary Catheter Discontinued: 05:00 Data : 10/31/21 04:02 10/31/21 04:02 Micro: Microbiology 10/31/21 09:41 Occult Blood (FIT) - Final Stool Routine Collection 10/28/21 07:55 Urine Culture - Final Urine,Clean Catch A&P Assessment and plan (1) Subcapital fracture of left hip: Status: Acute Qualifiers: Encounter type: initial encounter Fracture type: closed Qualified Code(s): S72.012A - Unspecified intracapsular fracture of left femur, initial encounter for closed fracture (2) Closed hip fracture: Status: Acute (3) Centrilobular emphysema: Status: Chronic (4) Personal history of nicotine dependence: Status: Chronic (5) Generalized anxiety disorder: Status: Chronic (6) Allergic rhinitis due to pollen: Status: Chronic (7) Gastro-esophageal reflux disease without esophagitis: Status: Chronic (8) Mixed hyperlipidemia: Status: Chronic (9) Hypertension: Status: Chronic Qualifiers: Hypertension type: essential hypertension Qualified Code(s): I10 - Essential (primary) hypertension (10) Vitamin D insufficiency: Status: Chronic Plan #Left hip fracture: Orthopedic consulted. Patient had ORIF 10/28/2021. Today's postop day3 Physical therapy, pain medication, anticoagulation as per orthopedic team. Aspirin 325 daily x30 days for DVT prophylaxis. #Hypertension: Blood pressure less than 140/90 mmHg. Blood pressure elevated most likely secondary to pain. For now continue home dose of Coreg and lisinopril. Monitor hemoglobin and CMP. #Postop atelectasis Incentive spirometer, flutter valve Mobilize out of bed On 3 L nasal cannula at this time which is her baseline. Does have diminished air entry. Patient doing better respiratory nunez. #Acute blood loss anemia. ? Hemoglobin 7.5 today. Continue to monitor. - Transfuse less than 7. - FOBT, iron studies ordered Case management consulted for discharge planning. Physical therapy postoperatively.? Regular diet postoperatively. Protonix for PUD prophylaxis Full code. Unable to reach family over the phone. Patient and patient's family not interested in going to rehab facility at this time. They would like to go home with home health. However patient is not remembering any of her posterior hip precautions. She will need help with family. I will discuss with family before discharge. Attestations Medical Necessity Statement*: Continue to monitor hemoglobin in the hospital. It is trending downward. Once stable will DC home. Coding Level of Care Code Acute Sql Server Bi Developer for jennifer Muse Diagnoses Subcapital fracture of left hip S72.012A Encounter type: initial encounter Fracture type: closed Closed hip fracture S72.009A Centrilobular emphysema J43.2 Personal history of nicotine dependence Z87.891 Generalized anxiety disorder F41.1 Allergic rhinitis due to pollen J30.1 Gastro-esophageal reflux disease without esophagitis K21.9 Mixed hyperlipidemia E78.2 Hypertension I10 Hypertension type: essential hypertension Vitamin D insufficiency E55.9
[2021-10-31] MEDS: pantoprazole 40 mg SDV IVP (13:49)
[2021-10-31 13:56] LABS: Iron 10 ug/dL (37-145); Percent Saturation 8.1 % (20-50); Total Iron Binding Capacity 122 mcg/dl; Unsaturated Iron Binding 112 ug/dL (112-347)
[2021-10-31] MEDS: iron sucrose 200 MG in sodium chloride 0.9% (100 ml) 100 ML 220 MG IV (14:36)
[2021-10-31 18:43] LABS: Basophils % 0.3 %; Eosinophils # 0.3 10^3/uL (0.0-0.8); Eosinophils % 2.9 %; Hematocrit 30.4 % (37.0-47.0); Hemoglobin 8.9 g/dL (11.5-15.3); Lymphocytes % 9.8 %; Mean Corpuscular HGB Conc 29.3 g/dL (30.0-36.0); Mean Corpuscular Hemoglobin 27.1 pg (28.0-34.0); Mean Corpuscular Volume 92.7 fl (81-99); Mean Platelet Volume 11.5 fL (7.4-10.4); Monocytes # 0.6 10^3/uL (0.2-0.9); Neutrophils # 7.88 10^3/uL (1.8-7.7); Neutrophils % 80.3 %; Nucleated Red Blood Cells % 0 %; Platelet Count 275 10^3/cmm (130-400); Red Blood Count 3.28 10^6/uL (4.1-5.3); Red Cell Distribution Width 13.2 % (12.1-15.1); White Blood Count 9.8 10^3/uL (4.0-10.0)
[2021-10-31] MEDS: trazodone 50 mg Tablet PO (20:48)
[2021-10-31] MEDS: TRAMadol 50 mg Tablet PO (20:48)
[2021-11-01] VITALS (9 sets, daily range): BP systolic 142–201; BP diastolic 61–94; PULSE 85–102; RESP 15–16; TEMP 36.4–36.8; O2SAT 95–98
[2021-11-01] MEDS: pantoprazole 40 mg SDV IVP ×2 (01:24→13:50)
[2021-11-01 05:14] LABS: Basophils % 0.3 %; Eosinophils # 0.3 10^3/uL (0.0-0.8); Eosinophils % 4.3 %; Hematocrit 27.2 % (37.0-47.0); Hemoglobin 8.1 g/dL (11.5-15.3); Lymphocytes # 0.9 10^3/uL (0.8-4.8); Lymphocytes % 13.9 %; Mean Corpuscular HGB Conc 29.8 g/dL (30.0-36.0); Mean Corpuscular Volume 90.7 fl (81-99); Mean Platelet Volume 12.1 fL (7.4-10.4); Monocytes # 0.6 10^3/uL (0.2-0.9); Monocytes % 9.2 %; Neutrophils # 4.84 10^3/uL (1.8-7.7); Neutrophils % 71.9 %; Nucleated Red Blood Cells % 0 %; Platelet Count 274 10^3/cmm (130-400); Red Cell Distribution Width 13.1 % (12.1-15.1); White Blood Count 6.7 10^3/uL (4.0-10.0)
[2021-11-01 05:39] LABS: Anion Gap 11.2 (5-19); Blood Urea Nitrogen 11 mg/dL (8-23); Calcium 9.1 mg/dL (8.5-10.5); Carbon Dioxide 35 mmol/L (22-29); Chloride 96 mmol/L (98-107); Glucose 97 mg/dL (65-115); Osmolality Calculated 285 mOsm/kg (285-295); Potassium 4.2 mmol/L (3.5-5.1); Sodium 138 mmol/L (136-145)
[2021-11-01] MEDS: calcium carbonate 500 mg Chew Tablet 1000 MG PO ×2 (09:02→17:24)
[2021-11-01] MEDS: atorvastatin 40 mg Tablet 20 MG PO (09:03)
[2021-11-01] MEDS: carvedilol 3.125 mg Tablet PO ×2 (09:03→17:25)
[2021-11-01] MEDS: multivitamin therapeutic Tablet 1 TAB PO (09:03)
[2021-11-01] MEDS: cholecalciferol (vitamin D3) 1,000 unit Tablet 1000 UNIT PO (09:03)
[2021-11-01] MEDS: aspirin 325 mg EC Tablet PO (09:03)
[2021-11-01] MEDS: iron polysaccharide complex 150 mg Capsule PO (09:03)
[2021-11-01] MEDS: lisinopril 20 mg Tablet 40 MG PO (09:03)
[2021-11-01] MEDS: cholecalciferol (vitamin D3) 5,000 unit Tablet 5000 UNIT PO (09:03)
[2021-11-01] MEDS: venlafaxine ER (24HR) 75 mg Capsule PO (09:03)
[2021-11-01] MEDS: sennosides-docusate Tablet 2 TAB PO ×2 (09:03→17:25)
[2021-11-01] MEDS: CELEcoxib 200 mg Capsule PO (09:04)
--- NOTE | 2021-11-01 11:13 | P.PN_ITS ---
Subjective Subjective: Seen this morning. Nursing staff reported patient had 2 melanotic stools this a.m. they were black. No gross blood however. FOBT is also positive. Patient states he has had an EGD and colonoscopy done in the past. It was few years ago. However does not remember details as to what the doctor was. She says he does not remember if they actually found anything. She is agreeable to have her repeat colonoscopy and EGD if needed. I discussed with her regarding her hemoglobin dropping. Vitals/I&O/Wt Last Vital Signs Temp 97.6 F 11/01/21 08:00 Pulse 90 11/01/21 08:04 Resp 16 11/01/21 08:04 BP 158/76 11/01/21 08:00 Pulse Ox 96 11/01/21 08:04 O2 Del Method 11/01/21 08:04 O2 Flow Rate 3 11/01/21 08:04 10/31/21 11/01/21 11/01/21 22:59 06:59 14:59 Intake Total 950 / 1790 240 / 2030 120 / 120 Output Total 300 / 300 Balance 650 / 1490 240 / 1730 120 / 120 Physical Exam Narrative: General: Alert oriented x3, patient seen sitting up in bed appearing comfortable at this time. HEENT: Normocephalic, atraumatic, EOMI, breathing 2 L nasal cannula Cardio: Regular rate rhythm, normal S1-S2 Respiratory: Very diminished bilateral air entry, mild rhonchi bilaterally at bases GI: Abdomen soft, nontender, nondistended, bowel sounds + Extremities: Dressing dry and intact at left hip, nontender to palpation, no swelling noted. Urinary Catheter Management: Vargas: Cath Placed During This Visit: yes, but has since been removed by the nurse Reason for Continuing Indwelling Catheter: Not indwelling catheter Urinary Catheter Date of Insertion: 10/28/21 Urinary Catheter Time of Insertion: 01:00 Date Urinary Catheter Removed: 10/29/21 Time Urinary Catheter Discontinued: 05:00 Data : 11/01/21 04:14 11/01/21 04:14 Micro: Microbiology 10/31/21 09:41 Occult Blood (FIT) - Final Stool Routine Collection A&P Assessment and plan (1) Subcapital fracture of left hip: Status: Acute Qualifiers: Encounter type: initial encounter Fracture type: closed Qualified Code(s): S72.012A - Unspecified intracapsular fracture of left femur, initial e ncounter for closed fracture (2) Closed hip fracture: Status: Acute (3) Centrilobular emphysema: Status: Chronic (4) Personal history of nicotine dependence: Status: Chronic (5) Generalized anxiety disorder: Status: Chronic (6) Allergic rhinitis due to pollen: Status: Chronic (7) Gastro-esophageal reflux disease without esophagitis: Status: Chronic (8) Mixed hyperlipidemia: Status: Chronic (9) Hypertension: Status: Chronic Qualifiers: Hypertension type: essential hypertension Qualified Code(s): I10 - Essential (primary) hypertension (10) Vitamin D insufficiency: Status: Chronic Plan #Left hip fracture: Orthopedic consulted. Patient had ORIF 10/28/2021. Today's postop day4 Physical therapy, pain medication, anticoagulation as per orthopedic team. Aspirin 325 daily x30 days for DVT prophylaxis. #Hypertension: Blood pressure less than 140/90 mmHg. Blood pressure elevated most likely secondary to pain. For now continue home dose of Coreg and lisinopril. Monitor hemoglobin and CMP. #Postop atelectasis Incentive spirometer, flutter valve Mobilize out of bed On 3 L nasal cannula at this time which is her baseline. Does have diminished air entry. Patient doing better respiratory nunez. #Acute blood loss anemia. ? Hemoglobin 7.5 today. Continue to monitor. - Transfuse less than 7. -FOBT positive ? Iron studies do indicate iron deficiency anemia as well ? Patient did get 1 dose of IV iron yesterday we will give second dose today. ? Hemoglobin went up to 8.9 and dropped again to 8 ? Patient did have 2 episodes of black stools this a.m. as per nursing staff. I have asked him to take a picture of it Or hold it for me to see. ? Discussed case with Dr. Mckenna on-call for GI today. ? Recommends to place patient on Protonix hold NSAIDs and monitor for now. We will plan to do EGD colonoscopy Wednesday morning. We will start prep tomorrow. I discussed all the above with the patient and she is agreeable at this time ? I will attempt to call her family again today. She gave me another number to call today. The previous number I had nobody was picking up. Case management consulted for discharge planning. Physical therapy postoperatively.? Regular diet postoperatively. Protonix for PUD prophylaxis Full code. Unable to reach family over the phone. Patient and patient's family not interested in going to rehab facility at this time. They would like to go home with home health. However patient is not remembering any of her posterior hip precautions. She will need help with family. I will discuss with family before discharge. Attestations Medical Necessity Statement*: Will need to keep patient in the hospital to monitor hemoglobin and management of anemia. Coding Level of Care Code Acute Surgery Specialist for [facility] Fwd Diagnoses Subcapital fracture of left hip S72.012A Encounter type: initial encounter Fracture type: closed Closed hip fracture S72.009A Centrilobular emphysema J43.2 Personal history of nicotine dependence Z87.891 Generalized anxiety disorder F41.1 Allergic rhinitis due to pollen J30.1 Gastro-esophageal reflux disease without esophagitis K21.9 Mixed hyperlipidemia E78.2 Hypertension I10 Hypertension type: essential hypertension Vitamin D insufficiency E55.9
[2021-11-01] MEDS: heparin 5,000 unit/mL INJ 1 mL 5000 UNIT SUBCUT (13:50)
[2021-11-01] MEDS: iron sucrose 200 MG in sodium chloride 0.9% (100 ml) 100 ML 220 MG IV (13:50)
[2021-11-01] MEDS: sucralfate 1 gm Tablet PO ×2 (17:25→20:56)
[2021-11-01 19:58] LABS: Basophils % 0.5 %; Eosinophils # 0.3 10^3/uL (0.0-0.8); Eosinophils % 4.2 %; Hematocrit 27.4 % (37.0-47.0); Hemoglobin 8.3 g/dL (11.5-15.3); Lymphocytes % 15.5 %; Mean Corpuscular HGB Conc 30.3 g/dL (30.0-36.0); Mean Corpuscular Hemoglobin 27.5 pg (28.0-34.0); Mean Corpuscular Volume 90.7 fl (81-99); Mean Platelet Volume 11.1 fL (7.4-10.4); Monocytes # 0.7 10^3/uL (0.2-0.9); Neutrophils # 4.26 10^3/uL (1.8-7.7); Neutrophils % 68.2 %; Nucleated Red Blood Cells % 0 %; Platelet Count 303 10^3/cmm (130-400); Red Blood Count 3.02 10^6/uL (4.1-5.3); Red Cell Distribution Width 13.1 % (12.1-15.1); White Blood Count 6.3 10^3/uL (4.0-10.0)
[2021-11-01] MEDS: trazodone 50 mg Tablet PO (20:56)
[2021-11-01] MEDS: TRAMadol 50 mg Tablet PO (20:56)
[2021-11-01] MEDS: chlorhexidine gluconate 0.12% Btl 473 mL 30 ML MUCOUS MEM (20:57)
[2021-11-02 00:52] VITALS: BP 179/81; PULSE 97; RESP 16; TEMP 36.7; O2SAT 99
[2021-11-02] MEDS: heparin 5,000 unit/mL INJ 1 mL 5000 UNIT SUBCUT (01:12)
[2021-11-02 04:37] VITALS: BP 138/78; PULSE 83; RESP 16; TEMP 36.7; O2SAT 98
[2021-11-02 05:55] LABS: Basophils % 0.6 %; Eosinophils # 0.3 10^3/uL (0.0-0.8); Eosinophils % 4.5 %; Hematocrit 31.7 % (37.0-47.0); Hemoglobin 9.3 g/dL (11.5-15.3); Lymphocytes # 1.4 10^3/uL (0.8-4.8); Lymphocytes % 20.9 %; Mean Corpuscular HGB Conc 29.3 g/dL (30.0-36.0); Mean Corpuscular Hemoglobin 26.8 pg (28.0-34.0); Mean Corpuscular Volume 91.4 fl (81-99); Mean Platelet Volume 11.2 fL (7.4-10.4); Monocytes # 0.7 10^3/uL (0.2-0.9); Monocytes % 10.8 %; Neutrophils # 4.08 10^3/uL (1.8-7.7); Neutrophils % 62.6 %; Nucleated Red Blood Cells % 0 %; Platelet Count 384 10^3/cmm (130-400); Red Blood Count 3.47 10^6/uL (4.1-5.3); Red Cell Distribution Width 13.1 % (12.1-15.1); White Blood Count 6.5 10^3/uL (4.0-10.0)
[2021-11-02 06:26] LABS: Anion Gap 11.9 (5-19); Blood Urea Nitrogen 8 mg/dL (8-23); Calcium 9.9 mg/dL (8.5-10.5); Carbon Dioxide 37 mmol/L (22-29); Chloride 92 mmol/L (98-107); Glucose 105 mg/dL (65-115); Osmolality Calculated 283 mOsm/kg (285-295); Potassium 3.9 mmol/L (3.5-5.1); Sodium 137 mmol/L (136-145)
[2021-11-02 08:00] VITALS: BP 157/66; PULSE 88; RESP 16; TEMP 36.7; O2SAT 98; O2SAT 99
[2021-11-02] MEDS: CELEcoxib 200 mg Capsule PO (08:44)
[2021-11-02] MEDS: lisinopril 20 mg Tablet 40 MG PO (08:44)
[2021-11-02] MEDS: venlafaxine ER (24HR) 75 mg Capsule PO (08:45)
[2021-11-02] MEDS: cholecalciferol (vitamin D3) 5,000 unit Tablet 5000 UNIT PO (08:45)
[2021-11-02] MEDS: carvedilol 3.125 mg Tablet PO (08:45)
[2021-11-02] MEDS: calcium carbonate 500 mg Chew Tablet 1000 MG PO (08:45)
[2021-11-02] MEDS: multivitamin therapeutic Tablet 1 TAB PO (08:45)
[2021-11-02] MEDS: cholecalciferol (vitamin D3) 1,000 unit Tablet 1000 UNIT PO (08:45)
[2021-11-02] MEDS: atorvastatin 40 mg Tablet 20 MG PO (08:46)
[2021-11-02 11:43] VITALS: BP 138/65; PULSE 82; RESP 18; TEMP 36.7; O2SAT 99
[2021-11-02 12:14] VITALS: BP 138/65; PULSE 82; RESP 18; TEMP 36.7; O2SAT 99
--- NOTE | 2021-11-02 12:21 | PM.DCS ---
Discharge Providers Date of Admission: 10/27/21 21:04 Date of Discharge: November 02, 2021 Attending Provider at Admission: Claudio Cortes MD Attending Provider at Discharge: Pam Aguiar MD Primary Care Provider: TERRELL Hopper Diagnoses at Discharge Discharge Diagnosis (1) Subcapital fracture of left hip: Status: Acute Qualifiers: Encounter type: initial encounter Fracture type: closed Qualified Code(s): S72.012A - Unspecified intracapsular fracture of left femur, initial encounter for closed fracture (2) Closed hip fracture: Status: Acute (3) Centrilobular emphysema: Status: Chronic (4) Personal history of nicotine dependence: Status: Chronic (5) Generalized anxiety disorder: Status: Chronic (6) Allergic rhinitis due to pollen: Status: Chronic (7) Gastro-esophageal reflux disease without esophagitis: Status: Chronic (8) Mixed hyperlipidemia: Status: Chronic (9) Hypertension: Status: Chronic Qualifiers: Hypertension type: essential hypertension Qualified Code(s): I10 - Essential (primary) hypertension (10) Vitamin D insufficiency: Status: Chronic Reason for Visit Reason for Visit: left hip pain Brief History: Karin Garcia is a 71 year old female with a past medical history of emphysema, hypertension, hyperlipidemia, GERD, generalized anxiety disorder, who presents to [facility] due to inability to walk and left hip pain.? 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 She spent a few minutes on the floor, eventually she called out for her son who came and picked her up off the ground, since then she is not able to walk, and she has been having left-sided hip pain.? She present to the emergency room today with her symptoms, denies any chest pain, no palpitations, no shortness of breath, no numbness, no facial droop, no slurring of her words, no focal weakness, no strokelike symptoms, no seizure-like symptoms, denies passing out, no dysuria, no shortness of breath, no cough, she has a history of smoking, but quit a few years ago, denies drinking alcohol Hospital Course Hospital Course Patient had ORIF on 10/28/2021. She was being managed by orthopedic surgery team. She has been placed on aspirin 325 daily for DVT prophylaxis for 30 days. Patient also developed some postop atelectasis which was resolved with incentive spirometer use. She stayed on her baseline oxygen 2 L nasal cannula. Patient was also started on Symbicort and albuterol at discharge for her COPD. She will continue to use her inhaled nebulized DuoNebs at home as previously taking at home. During hospital stay her hemoglobin did drop down to 7.4. Patient did not require blood transfusion. There was also confusing report by skilled nursing facility counselor that patient had black stools. Therefore she was kept in the hospital longer to keep monitoring the hemoglobin. We saw the stool myself the nurse and I did and it was dark green as opposed to black as described previously. Patient was also given iron infusion x2 on 2 separate days. Hemoglobin improved to 9.5 today at discharge. When dark green stools were seen patient also was on oral iron. During hospital stay I did stop the aspirin and switch her to Lovenox. Hemoglobin remained stable. At this point I am comfortable sending patient home on aspirin for DVT prophylaxis with close follow-up with PCP, general surgery, hematology. I discussed this with family as well and they are agreeable to taking aspirin at home. Patient has was placed on Protonix 40 twice daily, Carafate. Patient may need an EGD colonoscopy as an outpatient. She had 1 years ago however I cannot find records of that. Family is unable to provide me with details at this time. I discussed with patient's daughter and son. They will have her labs rechecked to monitor hemoglobin outpatient and also follow-up with orthopedic surgery, primary care, GEN surge for possible endoscopy colonoscopy and hematology for work-up of her anemia. I did discuss with general surgery upon discharge and they will follow outpatient. Her FOBT was positive but she was also on oral iron when that test was done. Patient's blood pressure has been stable throughout hospital stay. She will be discharged home on her lisinopril 40 daily, carvedilol 3.125 p.o. twice daily. When seen today patient states she is feeling okay and is on baseline 3 L oxygen. She is able to walk with physical therapy. Walker has been set up for her at home as well as a commode. Family is here to pick her up and she will go home with home health. Off note on multiple occasions Dr. Frausto orthopedic surgery and myself have discussed with the family regarding rehab or intermediate placement but patient has declined the offer at this time and family is also not interested. She does have a son and her [id number] that she lives with who will be taking care of her at home. I again had a discussion with family this morning regarding possible rehab or intermediate but they are not interested. Patient is also alert oriented x3 and she is also not interested in going to a facility and would like to go home with home health. Patient will be discharged home in stable condition. Physical Exam Narrative: General: Alert oriented x3, patient seen sitting up in bed appearing comfortable at this time. HEENT: Normocephalic, atraumatic, EOMI, breathing 3 L nasal cannula Cardio: Regular rate rhythm, normal S1-S2 Respiratory: Very diminished bilateral air entry, mild rhonchi bilaterally at bases GI: Abdomen soft, nontender, nondistended, bowel sounds + Extremities: Dressing dry and intact at left hip, nontender to palpation, no swelling noted. Urinary Catheter Management: Vargas: Cath Placed During This Visit: yes, but has since been removed by the nurse Reason for Continuing Indwelling Catheter: Not indwelling catheter Urinary Catheter Date of Insertion: 10/28/21 Urinary Catheter Time of Insertion: 01:00 Date Urinary Catheter Removed: 10/29/21 Time Urinary Catheter Discontinued: 05:00 Discharge Data Studies Completed and Pending Completed Studies During Hospitalization Category Date Time Status CT head wo con* [id number] Stat Cat Scan 10/27/21 20:24 Completed XR chest 1V portable [id number] Stat Exams 10/27/21 20:24 Completed XR hip LT 2-3V wo/w pel* [id number] Stat Exams 10/27/21 20:07 Completed XR knee LT 1-2V [id number] Stat Exams 10/27/21 20:41 Completed XR pelvis 1-2V* [id number] Routine Exams 10/28/21 21:04 Completed XR pelvis 1-2V* [id number] Stat Exams 10/27/21 21:16 Completed CV. echo complete* [id number] Routine Ultrasound 10/28/21 00:39 Completed Radiology Impressions Hip/Pelvis X-Ray 10/27/21 20:07 IMPRESSION: 1. Subcapital impacted hip fracture with overlap of the fracture fragments. 2. Scattered vascular calcifications. Chest X-Ray 10/27/21 20:24 IMPRESSION: 1. Negative for acute abnormality. 2. Emphysematous changes. 3. Possible trace bilateral pleural effusions. Head CT 10/27/21 20:24 IMPRESSION: Negative for intracranial hemorrhage or mass effect. Knee X-Ray 10/27/21 20:41 IMPRESSION: 1. Moderate tricompartmental osteoarthritis of the knee. 2. Scattered vascular calcifications. Pelvis X-Ray 10/28/21 21:04 IMPRESSION: 1. Left hip arthroplasty changes in place with postsurgical soft tissue changes. 2. Scattered vascular calcifications. Laboratory Results WBC 6.5 10^3/uL (4.0-10.0) 11/02/21 05:41 RBC 3.47 10^6/uL (4.1-5.3) L 11/02/21 05:41 Hgb 9.3 g/dL (11.5-15.3) L 11/02/21 05:41 Hct 31.7 % (37.0-47.0) L 11/02/21 05:41 MCV 91.4 fl (81-99) 11/02/21 05:41 MCH 26.8 pg (28.0-34.0) L 11/02/21 05:41 MCHC 29.3 g/dL (30.0-36.0) L 11/02/21 05:41 RDW 13.1 % (12.1-15.1) 11/02/21 05:41 Plt Count 384 10^3/cmm (130-400) 11/02/21 05:41 MPV 11.2 fL (7.4-10.4) H 11/02/21 05:41 Neut % (Auto) 62.6 % 11/02/21 05:41 Lymph % (Auto) 20.9 % 11/02/21 05:41 [place] % (Auto) 10.8 % 11/02/21 05:41 Eos % (Auto) 4.5 % 11/02/21 05:41 Baso % (Auto) 0.6 % 11/02/21 05:41 Neut # (Auto) 4.08 10^3/uL (1.8-7.7) 11/02/21 05:41 Lymph # (Auto) 1.4 10^3/uL (0.8-4.8) 11/02/21 05:41 [place] # (Auto) 0.7 10^3/uL (0.2-0.9) 11/02/21 05:41 Eos # (Auto) 0.3 10^3/uL (0.0-0.8) 11/02/21 05:41 Baso # (Auto) 0.0 10^3/uL (0.0-0.1) 11/02/21 05:41 Nucleated RBC % (auto) 0 % 11/02/21 05:41 Nucleated RBCs # 0.0 /100WBC 11/02/21 05:41 PT 13.10 SECONDS (12.1-14.9) 10/27/21 21:00 INR 0.96 (0.8-1.2) 10/27/21 21:00 APTT 26.7 SECONDS (23.9-36.7) 10/27/21 21:00 Sodium 137 mmol/L (136-145) 11/02/21 05:41 Potassium 3.9 mmol/L (3.5-5.1) 11/02/21 05:41 Chloride 92 mmol/L (98-107) L 11/02/21 05:41 Carbon Dioxide 37 mmol/L (22-29) H 11/02/21 05:41 Anion Gap 11.9 (5-19) 11/02/21 05:41 BUN 8 mg/dL (8-23) 11/02/21 05:41 Creatinine 0.4 mg/dL (0.5-0.9) L 11/02/21 05:41 GFR Calculation Not Reportable 11/02/21 05:41 Glucose 105 mg/dL (65-115) 11/02/21 05:41 Calculated Osmolality 283 mOsm/kg (285-295) L 11/02/21 05:41 Calcium 9.9 mg/dL (8.5-10.5) 11/02/21 05:41 Magnesium 1.9 mg/dL (1.7-2.3) 10/31/21 04:02 Iron 10 ug/dL (37-145) L 10/31/21 04:02 TIBC 122 mcg/dl 10/31/21 04:02 % Saturation 8.1 % (20-50) L 10/31/21 04:02 Unsat Iron Binding 112 ug/dL (112-347) 10/31/21 04:02 Total Bilirubin 0.2 mg/dL (0.15-1.2) 10/29/21 02:28 AST 21 U/L (0-32) 10/29/21 02:28 ALT 11 U/L (0-33) 10/29/21 02:28 Alkaline Phosphatase 68 U/L (35-105) 10/29/21 02:28 Troponin T Baseline 81 ng/L (0-10) H 10/28/21 06:58 Troponin T 120 Minute 72.98 ng/L (0-10) H 10/28/21 08:55 Delta Troponin T -8.02 ABS# (0-10) L 10/28/21 08:55 Troponin T Hi Sens 6Hr 61.87 ng/L (0-10) H 10/28/21 13:14 Troponin T Hi Sens 6Hr Delta -19.13 ng/L (0-12) L 10/28/21 13:14 Total Protein 5.0 g/dL (6.6-8.7) L 10/29/21 02:28 Albumin 2.3 g/dL (3.5-5.2) L 10/29/21 02:28 Globulin 2.7 g/dL (1.3-4.6) 10/29/21 02:28 TSH 1.94 uIU/mL (0.27-4.20) 10/28/21 01:29 Urine Color Yellow (Yellow) 10/28/21 07:55 Urine Appearance Clear (CLEAR) 10/28/21 07:55 Urine pH 6 (5-7) 10/28/21 07:55 Ur Specific Falcon 1.020 (1.005-1.030) 10/28/21 07:55 Urine Protein Trace (Negative) 10/28/21 07:55 Urine Glucose (UA) Norm (Normal) 10/28/21 07:55 Urine Ketones 1+ (Negative) H 10/28/21 07:55 Urine Blood 3+ (Negative) H 10/28/21 07:55 Urine Nitrate Negative (Negative) 10/28/21 07:55 Urine Bilirubin Neg (Negative) 10/28/21 07:55 Urine Urobilinogen Norm mg/dL (Negative) 10/28/21 07:55 Ur Leukocyte Esterase Negative (Negative) 10/28/21 07:55 Urine RBC 25-40 /hpf (0-2) H 10/28/21 07:55 Urine WBC 5-10 /hpf (0-5) H 10/28/21 07:55 Ur Squamous Epith Cells 0-4 /hpf (0-5) H 10/28/21 07:55 Amorphous Sediment Not Reportable 10/28/21 07:55 Urine Bacteria Trace /hpf (NONE) 10/28/21 07:55 Urine Mucus 2+ /hpf 10/28/21 07:55 Blood Type B Positive 10/27/21 21:00 Rho(D) Type Positive 10/27/21 21:00 Antibody Screen Negative 10/27/21 21:00 Vitals Last Vital Signs Temp 98.1 F 11/02/21 12:14 Pulse 82 11/02/21 12:14 Resp 18 11/02/21 12:14 BP 138/65 11/02/21 12:14 Pulse Ox 99 11/02/21 12:14 O2 Del Method 11/02/21 11:43 O2 Flow Rate 3 11/02/21 08:00 Discharge Plan Discharge Patient Disposition: Home Health Service Condition: Stable Prescriptions: New aspirin 325 mg Tablet,Delayed Release (Dr/Ec) 325 mg PO DAILY 30 Days Qty: 30 0RF tramadol 50 mg Tablet 50 mg PO Q4H PRN (Reason: Mild To Moderate Pain) 7 Days Qty: 40 0RF sucralfate 1 gram Tablet 1 g PO AC&BEDTIME 30 Days Qty: 60 0RF carvedilol 3.125 mg Tablet 3.125 mg PO BID 30 Days Qty: 60 0RF Protonix 40 mg tablet,delayed release (DR/EC) 40 mg PO BID 30 Days Qty: 60 0RF Symbicort 160-4.5 mcg/actuation HFA aerosol inhaler 2 inh inhalation BID 30 Days Qty: 10.2 0RF Continued (DME) oxygen concentrator with portable oxygen See Rx Instructions .Route .MEDSUPPLY Qty: 1 0RF Rx Instructions: As directed oxygen concentrator with portable oxygen 2 liters 24 hours atorvastatin 20 mg tablet 20 mg PO DAILY Qty: 30 2RF Flovent HFA 110 mcg/actuation HFA aerosol inhaler 2 puff inhalation BID Qty: 12 2RF magnesium oxide 400 mg magnesium tablet 400 mg PO BID Qty: 180 0RF ipratropium-albuterol 0.5 mg-3 mg(2.5 mg base)/3 mL solution for nebulization 3 ml inhalation Q4H PRN (Reason: wheezing) Qty: 180 2RF venlafaxine 75 mg capsule,extended release 24hr 75 mg PO DAILY trazodone 50 mg tablet 50 mg PO BEDTIME lisinopril 40 mg tablet 40 mg PO DAILY Vitamin D3 125 mcg (5,000 unit) tablet 5,000 unit PO DAILY Discontinued famotidine 40 mg tablet 40 mg PO BEDTIME Discharge Orders: Discharge Order (Routine); Ordered 10/31/21 Ordered By: Ashli Gandara Ambulatory Orders: Complete Blood Count w/Auto (Routine) Timeframe: 1 Week Location: Determined by Patient Ordered By: Pam Stefania Complete Blood Count w/Auto (Routine) Timeframe: 3 Days Location: Determined by Patient Ordered By: Pamgricelda Aguiar DME: [employer] (Order) Location: None Selected Ordered By: Pam Aguiar DME: Walker (Order) Location: None Selected Ordered By: Pamgricelda Aguiar Referrals: [facility] [Outside] [facility] [Outside] Alfred Quinones MD [Physician] - 1 week (Please call Wednesday morning to schedule a hospital follow up appointment within 1 week. ) Ema Jansen FNP-C [Primary Care Provider] - 11/06/21 1:40 pm Ashli Frausto MD [Physician] - 11/13/21 10:30 am (Patient may see Tanmay in clinic for follow-up at initial visit) Elizabeth Dover MD [Staff Physician] - 7-10 days (Please call Dr. Dover's office Wednesday morning to schedule a follow up appointment due to your low hemoglobin. ) Discharge Activity: Limit activity as instructed, Use walker/crutches as instructed and As per PT/OT instructions Patient Instructions: Sucralfate (By mouth), Carvedilol (By mouth), Pantoprazole (By mouth), Opioid Safety Activity Restrictions/Additional Instructions: Posterior hip precautions. Leave dressing on wound, and you may shower. If dressing comes off, leave open to air. Please have your labs rechecked to check your hemoglobin level within 3 days and then 1 week later again. Please follow-up with general surgery for potential endoscopy and colonoscopy as an outpatient. Also follow-up with hematology for work-up of your anemia. Your son has agreed to take you to your doctor's appointments. Please follow-up with primary care within a week of discharge. Please follow-up with orthopedic surgery as well as scheduled. Home health has been set up for you. A commode and walker have also been arranged. Please remember your hip precautions as discussed in the hospital. Continue to use oxygen as directed. If you develop any symptoms or worsening of symptoms including but not limited to dark black stools, tarry looking stools, lightheadedness, dizziness, blood in stool, bleeding from surgical site, excessive pain at surgical site, development of fever, increasing oxygen requirements, abdominal pain, diarrhea please reach out to the nearest emergency room. Please take your medications as directed. Discharge Attestations Time Spent in Discharge Care*: greater than 30 min Quality Metrics Clinical Quality Measures [ No reported AMI, CVA or VTE this stay] Coding Level of Care Code Acute [facility] note Diagnoses Subcapital fracture of left hip S72.012A Encounter type: initial encounter Fracture type: closed Closed hip fracture S72.009A Centrilobular emphysema J43.2 Personal history of nicotine dependence Z87.891 Generalized anxiety disorder F41.1 Allergic rhinitis due to pollen J30.1 Gastro-esophageal reflux disease without esophagitis K21.9 Mixed hyperlipidemia E78.2 Hypertension I10 Hypertension type: essential hypertension Vitamin D insufficiency E55.9
--- NOTE | 2021-11-02 12:29 | PC.NURSE ---
PATIENT REQUESTED HER MEDICATIONS BE SENT TO [facility] EVEN THOUGHT THEY AREN'T OPEN TODAY. SHE STATED SHE WOULD CHECKERER HAND MEDICATIONS IN THE MORNING.
== END 2021-11-02 12:35 | disposition home or self-care (01) | DRG 982 ==
LOC: ER 21:11 → MEDSURG 21:39
PROVIDERS: Specialist; Student in an Organized Health Care Education/Training Program; Admitting Provider Family Medicine; Emergency Provider Emergency Medicine; PCP Nurse Practitioner; Visit Provider Internal Medicine
PROC: 0SRS0JZ Replacement of Left Hip Joint, Femoral Surface with Synthetic Substitute, Open Approach (ICD-10-PCS; CPT 27125; principal; 2021-10-28 18:30)
DX: I21.4 Non-ST elevation (NSTEMI) myocardial infarction (principal); D62 Acute posthemorrhagic anemia; J95.89 Other postprocedural complications and disorders of respiratory system, not elsewhere classified; J98.11 Atelectasis; W18.30XA Fall on same level, unspecified, initial encounter; J43.2 Centrilobular emphysema; I10 Essential (primary) hypertension; E78.2 Mixed hyperlipidemia; K21.9 Gastro-esophageal reflux disease without esophagitis; F41.1 Generalized anxiety disorder; Z86.11 Personal history of tuberculosis; G62.9 Polyneuropathy, unspecified; Z87.891 Personal history of nicotine dependence; E55.9 Vitamin D deficiency, unspecified; Z79.891 Long term (current) use of opiate analgesic
CPT/HCPCS: 36415; 51702; 70450; 71045; 72170; 73502; 73560; 80048; 80053; 81001; 82274; 83540; 83550; 83735; 84443; 84484; 85025; 85610; 85730; 86850; 86900; 87086; 93005; 93306; 94640; 94664; 96372; 96374; 97110; 97116; 97161; 97167; 97530; 97535; 99285; C1776; C9113; J0690; J1644; J1756; J2270; J2704; J3370; J7030

== ENCOUNTER → 2021-11-06 14:08 | Outpatient (BNVA) | payer MEDICAID, SELFPAY | PROVIDERS: PCP Nurse Practitioner; Visit Provider Nurse Practitioner | DX: D64.9 Anemia, unspecified (principal); E61.1 Iron deficiency; E78.2 Mixed hyperlipidemia; I10 Essential (primary) hypertension; F41.1 Generalized anxiety disorder; I80.9 Phlebitis and thrombophlebitis of unspecified site | CPT/HCPCS: 85025 ==

== ENCOUNTER → 2022-01-20 11:48 | Outpatient (BNVA) | payer MEDICAID, SELFPAY | PROVIDERS: PCP Nurse Practitioner; Visit Provider Nurse Practitioner | DX: D64.9 Anemia, unspecified (principal); E61.1 Iron deficiency; E78.2 Mixed hyperlipidemia; J43.2 Centrilobular emphysema; I10 Essential (primary) hypertension; I80.9 Phlebitis and thrombophlebitis of unspecified site; Z23 Encounter for immunization; F41.1 Generalized anxiety disorder | CPT/HCPCS: 80053; 83540; 85025 ==

== ENCOUNTER → 2022-04-20 14:59 | Outpatient (BNVA) | payer MEDICAID, SELFPAY | PROVIDERS: PCP Nurse Practitioner; Visit Provider Nurse Practitioner | DX: E78.2 Mixed hyperlipidemia (principal); J43.2 Centrilobular emphysema; I10 Essential (primary) hypertension; I80.9 Phlebitis and thrombophlebitis of unspecified site; E61.1 Iron deficiency; K21.9 Gastro-esophageal reflux disease without esophagitis; D64.9 Anemia, unspecified; F41.1 Generalized anxiety disorder | CPT/HCPCS: 80053; 80061; 85025 ==

== ENCOUNTER → 2022-07-28 14:58 | Outpatient (BNVA) | payer MEDICAID, SELFPAY | PROVIDERS: PCP Nurse Practitioner; Visit Provider Nurse Practitioner | DX: I10 Essential (primary) hypertension (principal) | CPT/HCPCS: 80053; 85025 ==

== ENCOUNTER → 2022-10-20 14:54 | Outpatient (BNVA) | payer MEDICAID, SELFPAY | PROVIDERS: PCP Nurse Practitioner; Visit Provider Nurse Practitioner | DX: E61.1 Iron deficiency (principal); E55.9 Vitamin D deficiency, unspecified; I10 Essential (primary) hypertension | CPT/HCPCS: 80053; 80061; 82306; 83540; 84443 ==

== ENCOUNTER → 2023-01-04 15:17 | Outpatient (BNVA) | payer MEDICAID, SELFPAY | PROVIDERS: PCP Nurse Practitioner; Visit Provider Nurse Practitioner | DX: I10 Essential (primary) hypertension (principal); J18.9 Pneumonia, unspecified organism; F41.1 Generalized anxiety disorder | CPT/HCPCS: 71046; 80053; 85025 ==

== ENCOUNTER → 2023-03-22 13:33 | Outpatient (BNVA) | payer MEDICAID, SELFPAY | PROVIDERS: PCP Nurse Practitioner; Visit Provider Nurse Practitioner | DX: I10 Essential (primary) hypertension (principal); K21.9 Gastro-esophageal reflux disease without esophagitis | CPT/HCPCS: 80053; 84443; 85025 ==

== ENCOUNTER 2023-09-01 06:00 | Outpatient (CLI) | payer MEDICAID, SELFPAY | END 2023-09-01 06:01 | disposition home or self-care (01) | LOC: RAD 10-26 06:31 | PROVIDERS: PCP Nurse Practitioner; Visit Provider Nurse Practitioner | DX: F41.1 Generalized anxiety disorder (principal); I10 Essential (primary) hypertension; E78.2 Mixed hyperlipidemia; E55.9 Vitamin D deficiency, unspecified | CPT/HCPCS: 80053; 80061; 82306; 82607; 84443; 85025 ==

== ENCOUNTER 2023-09-23 11:54 | Inpatient (IN) | payer MEDICAID, SELFPAY ==
[2023-09-23] VITALS (11 sets, daily range): BP systolic 113–155; BP diastolic 58–97; PULSE 79–127; RESP 16–23; TEMP 36.6–36.9; O2SAT 93–100
--- NOTE | 2023-09-23 11:57 | XR_ITS ---
WS: [id number] PORTABLE CHEST HISTORY: dyspnea/cough COMPARISON: 01/04/2023 Hyperinflated lungs. Chronic emphysema. Focal opacification at the LEFT costophrenic angle. No pleural effusion or pneumothorax. Cardiac size: Normal. Mediastinum/Aorta: Mild atherosclerosis aorta. Bones are osteopenic. XR/XR chest 1V portable [id number] IMPRESSION: Subsegmental area of increased opacification at the LEFT costophrenic angle. Pr obably an area of pneumonitis or pneumonitis. Chronic emphysema.
--- NOTE | 2023-09-23 12:12 | ED_ITS ---
HPI - SOB/Dyspnea 2 General: Chief Complaint: Shortness of Breath/Dyspnea Stated Complaint: sob, copd Time Seen by Provider: 09/23/23 11:56 History of Present Illness: HPI Narrative: 73-year-old female presents the emergenc y room complaining of shortness of breath and wheezing. Patient has COPD and is on chronic oxygen supplementation 2 L/min. EMS was called for shortness of breath. Patient did admit to nurse having productive cough she denies fever. EMS reports on her usual oxygen at home she was high 80s low 90s. Persistent low 90s with oxygen now at 4 L/min she did receive an albuterol treatment route she was not using any albuterol at home. Denies chest pain or hemoptysis. Associated symptoms: Deny abdominal pain, chest pain or fever(s) Review of Systems 2 Const: Denies: fever(s) or chills Card: Denies: chest pain Resp: Reports: dyspnea, productive cough and wheezing GI: Denies: abdominal pain : Denies: dysuria, urinary frequency or urinary urgency Musc: Denies: neck pain or back pain Skin/Breast: Denies: rash PFSH ED 2 PFSH: Medical History Supplemental oxygen dependent Personal history of nicotine dependence Generalized anxiety disorder Allergic rhinitis due to pollen Gastro-esophageal reflux disease without esophagitis Vitamin D insufficiency History of TB (tuberculosis) Neuropathy Centrilobular emphysema Mixed hyperlipidemia Hypertension Surgical History History of arthroplasty of left hip 10/28/21 [facility] Hx of total hysterectomy with BSO History of section History of colonoscopy 2016 Family History Other Bleeding disorder Cancer Diabetes Stroke Thyroid disease Social History Smoking and tobacco/nicotine status: former use of tobacco/nicotine Second hand smoke exposure: Yes Alcohol intake: never Substance/Drug Use: unknown Adopted: No Caregiver/support person: No Lives independently: Yes Household members: family Housing: House Marital status: Number of children: 4 service: No Current occupational status: retired Current occupational exposures/hazards: No Do you think of yourself as: Straight/Heterosexual Current gender identity: Female Physical Exam 2 Const: GENERAL APPEARANCE: cooperative ORIENTATION/CONSCIOUSNESS: Yes awake, Yes oriented to person, Yes oriented to place and Yes oriented to time HENMT: COMMON NORMALS: normocephalic, atraumatic and hearing grossly normal bilaterally HEAD & SCALP: normocephalic and atraumatic Resp: EFFORT & INSPECTION: Yes tachypneic, Yes pursed lip breathing and Yes uses accessory muscles AUSCULTATION: wheezes Cardio: COMMON NORMALS: regular rhythm and No murmurs present (Cardio) R ATE: tachycardic RHYTHM: regular rhythm GI: COMMON NORMALS: Soft to palpation and No hepatosplenomegaly present A USCULTATION: Yes normoactive bowel sounds PALPATION: Yes Soft to palpation, No Tenderness to palpation present (GI), No Guarding due to palpation present (GI) and Yes No hepatosplenomegaly present Extremity: COMMON NORMALS: normal to inspection, capillary refill normal, no clubbing, cyanosis or edema, no calf tenderness and no pedal edema Neuro: SENSORIUM/ORIENTATION: Yes oriented to person, Yes oriented to place and Yes oriented to time Skin: COMMON NORMALS: no rashes or lesions noted GENERAL SKIN EXAM: no rashes or lesions noted Course 2 Vital Signs: Vital signs: Vital Signs Temperature 98.5 F 09/23/23 12:06 Pulse Rate 110 H 09/23/23 17:09 Respiratory Rate 23 H 09/23/23 17:09 Blood Pressure 154/75 09/23/23 17:09 Pulse Oximetry 100 09/23/23 17:09 Oxygen Delivery Me thod Room Air 09/23/23 16:55 Oxygen Flow Rate 3 09/23/23 12:17 MDM - SOB/Dyspnea Medical Decision Making COPD exacerbation with left lower lobe pneumonia. Patient given steroids nebulizer started on IV antibiotics she is requiring increased oxygen supplementation. Normally she is on 2 L not requiring 4. Discussed with hospitalist orders written. Medical Records I reviewed the patient's medical records. Lab Data I reviewed the patient's lab results. 09/23/23 12:45 09/23/23 12:45 Labs/Radiology: Radiology Impressions Chest X-Ray 09/23/23 11:57 IMPRESSION: Subsegmental area of increased opacification at the LEFT costophrenic angle. Probably an area of pneumonitis or pneumonitis. Chronic emphysema. Chest CTA 09/23/23 14:33 IMPRESSION: 1. No pulmonary embolism. 2. LEFT lower lobe tree-in-bud airspace disease and bronchial wall thickening consistent with endobronchial pneumonia. 3. Severe centrilobular emphysema. Laboratory Results WBC 12.99 10^3/uL (3.29-11.43) H 09/23/23 12:45 RBC 3.79 10^6/uL (3.85-5.65) L 09/23/23 12:45 Hgb 10.50 g/dL (11.27-16.99) L 09/23/23 12:45 Hct 36.8 % (36-47) 09/23/23 12:45 MCV 97.1 fl (85-98) 09/23/23 12:45 MCH 27.7 pg (27-33) 09/23/23 12:45 MCHC 28.5 g/dL (30-55) L 09/23/23 12:45 RDW 12.7 % (12.1-15.1) 09/23/23 12:45 Plt Count 300 10^3/cmm (157-399) 09/23/23 12:45 MPV 11.1 fL (7.4-10.4) H 09/23/23 12:45 Neut % (Auto) 81.5 % 09/23/23 12:45 Lymph % (Auto) 9.5 % 09/23/23 12:45 [place] % (Auto) 8.2 % 09/23/23 12:45 Eos % (Auto) 0.2 % 09/23/23 12:45 Baso % (Auto) 0.3 % 09/23/23 12:45 Neut # (Auto) 10.59 10^3/uL (1.8-7.7) H 09/23/23 12:45 Lymph # (Auto) 1.2 10^3/uL (0.8-4.8) 09/23/23 12:45 [place] # (Auto) 1.1 10^3/uL (0.2-0.9) H 09/23/23 12:45 Eos # (Auto) 0.0 10^3/uL (0.0-0.8) 09/23/23 12:45 Baso # (Auto) 0.0 10^3/uL (0.0-0.1) 09/23/23 12:45 Nucleated RBC % (auto) 0 % 09/23/23 12:45 Nucleated RBCs # 0.0 /100WBC 09/23/23 12:45 Specimen Type Arterial 09/23/23 12:14 Sample Site Radial, left 09/23/23 12:14 ABG pH 7.43 (7.35-7.45) 09/23/23 12:14 ABG pCO2 57.4 mmHg (35-45) H 09/23/23 12:14 ABG pO2 59.9 mmHg (80.0-100.0) L 09/23/23 12:14 ABG HCO3 38.2 mmol/L (22-26) H 09/23/23 12:14 ABG O2 Saturation 93.5 09/23/23 12:14 ABG Base Excess 12.0 mmol/L (-2.0-2.0) H 09/23/23 12:14 Bal Test Pos 09/23/23 12:14 A-a O2 Gradient 2.6 mmHg (5-10) L 09/23/23 12:14 Hematocrit 32.3 % (37-47) L 09/23/23 12:14 Hgb O2 Saturation 91.7 % (95-100) L 09/23/23 12:14 Carboxyhemoglobin 0.6 %THgb (0.4-20.1) 09/23/23 12:14 Methemoglobin 1.3 % (0.4-1.5) 09/23/23 12:14 Total Hemoglobin 10.5 g/dL (12-16) L 09/23/23 12:14 Sodium 139.0 mmol/L (131-143) 09/23/23 12:14 Potassium 3.5 mmol/L (3.5-5.0) 09/23/23 12:14 Glucose 179.0 mg/dL (70-115) H 09/23/23 12:14 Ionized Calcium 1.3 mmol/L (1.1-1.4) 09/23/23 12:14 O2 Delivery Device Nc 09/23/23 12:14 O2 Liters/Min 3.0 % 09/23/23 12:14 Director Clinical Applications ID [place] 09/23/23 12:14 Sodium 137 mmol/L (136-145) 09/23/23 12:45 Potassium 3.8 mmol/L (3.5-5.1) 09/23/23 12:45 Chloride 96 mmol/L (98-107) L 09/23/23 12:45 Carbon Dioxide 34 mmol/L (22-29) H 09/23/23 12:45 Anion Gap 10.8 (5-19) 09/23/23 12:45 BUN 14 mg/dL (8-23) 09/23/23 12:45 Creatinine 0.6 mg/dL (0.5-0.9) 09/23/23 12:45 GFR Calculation Not Reportable 09/23/23 12:45 Glucose 174 mg/dL (65-115) H 09/23/23 12:45 Calculated Osmolality 289 mOsm/kg (285-295) 09/23/23 12:45 Lactic Acid 2.6 mmol/L (0.5-2.2) H 09/23/23 12:45 Calcium 9.7 mg/dL (8.5-10.5) 09/23/23 12:45 Total Bilirubin 0.4 mg/dL (0.15-1.2) 09/23/23 12:45 AST 13 U/L (0-32) 09/23/23 12:45 ALT 9 U/L (0-33) 09/23/23 12:45 Alkaline Phosphatase 83 U/L (35-105) 09/23/23 12:45 Troponin T Baseline 7 ng/L (0-10) 09/23/23 12:45 C-Reactive Protein 10.3 mg/L (0.0-4.9) H 09/23/23 12:45 NT-Pro-B Natriuret Pep 234 pg/mL (0-125) H 09/23/23 12:45 NT-Pro-B Natriuret Pep Cancelled 09/23/23 12:45 Total Protein 7.3 g/dL (6.6-8.7) 09/23/23 12:45 Albumin 3.8 g/dL (3.5-5.2) 09/23/23 12:45 Globulin 3.5 g/dL (1.3-4.6) 09/23/23 12:45 Procalcitonin 0.12 ng/mL (0-0.5) 09/23/23 12:45 Urine Color [place] (Yellow) A 09/23/23 14:44 Urine Appearance Clear (CLEAR) 09/23/23 14:44 Urine pH >=9.0 (5-7) A 09/23/23 14:44 Ur Specific [place] 1.014 (1.005-1.030) 09/23/23 14:44 Urine Protein 1+ (Negative) A 09/23/23 14:44 Urine Glucose (UA) 1+ (Normal) H 09/23/23 14:44 Urine Ketones Negative (Negative) 09/23/23 14:44 Urine Blood Trace (Negative) A 09/23/23 14:44 Urine Nitrate Negative (Negative) 09/23/23 14:44 Urine Bilirubin Negative (Negative) 09/23/23 14:44 Urine Urobilinogen 1.0 mg/dL (Negative) 09/23/23 14:44 Ur Leukocyte Esterase Negative (Negative) 09/23/23 14:44 Urine RBC 11-20 /hpf (0-2) H 09/23/23 14:44 Urine WBC 0-5 /hpf (0-5) 09/23/23 14:44 Ur Squamous Epith Cells 0-5 /hpf (0-5) 09/23/23 14:44 Amorphous Sediment Not Reportable 09/23/23 14:44 Urine Bacteria None seen /hpf (NONE) 09/23/23 14:44 Hyaline Casts 0.81 /lpf 09/23/23 14:44 All radiology interpretation(s) finalized by discharge Discharge Plan Discharge Patient Disposition: Admitted As Inpatient Admit Provider: Claudio Cortes Clinical Impression: Pneumonia, Acute exacerbation of chronic obstructive airways disease Condition: Stable Coding Level of Care Code ED Ch[employer] Grinder for Kristel Muse
[2023-09-23] MEDS: methylPREDNISolone sod succ 125 mg/2 mL INJ IVP (12:14)
[2023-09-23 12:25] LABS: ABG PCO2 57.4 mmHg (35-45); ABG PH Result 7.43 (7.35-7.45); Alveolar-Arterial Oxygen Gradi 2.6 mmHg (5-10); Arterial Blood Gas Hematocrit 32.3 % (37-47); Blood Gas Allen Test Pos; Blood Gas Operator Identificat WALCI; Blood Gas Sample Site Radial, left; Blood Gas Sample Type Arterial; Carboxyhemoglobin 0.6 %THgb (0.4-20.1); HCO3 ABG 38.2 mmol/L (22-26); HGB O2 Sat 91.7 % (95-100); Ionized Calcium Level - ABG 1.3 mmol/L (1.1-1.4); Methemoglobin 1.3 % (0.4-1.5); Oxygen Device NC; Oxygen Saturation ABG 93.5; PO2 ABG 59.9 mmHg (80.0-100.0); Potassium Level - ABG 3.5 mmol/L (3.5-5.0); Total Hemoglobin 10.5 g/dL (12-16)
[2023-09-23] MEDS: ipratropium-albuterol 3 mL Neb INHALATION ×2 (12:29→20:34)
[2023-09-23 13:07] LABS: Basophils % 0.3 %; Eosinophils % 0.2 %; Hematocrit 36.8 % (36-47); Lymphocytes # 1.2 10^3/uL (0.8-4.8); Lymphocytes % 9.5 %; Mean Corpuscular HGB Conc 28.5 g/dL (30-55); Mean Corpuscular Hemoglobin 27.7 pg (27-33); Mean Corpuscular Volume 97.1 fl (85-98); Mean Platelet Volume 11.1 fL (7.4-10.4); Monocytes # 1.1 10^3/uL (0.2-0.9); Monocytes % 8.2 %; Neutrophils # 10.59 10^3/uL (1.8-7.7); Neutrophils % 81.5 %; Nucleated Red Blood Cells % 0 %; Platelet Count 300 10^3/cmm (157-399); Red Blood Count 3.79 10^6/uL (3.85-5.65); Red Cell Distribution Width 12.7 % (12.1-15.1); White Blood Count 12.99 10^3/uL (3.29-11.43)
[2023-09-23 13:18] LABS: Lactic Sepsis W/Reflex 2.6 mmol/L (0.5-2.2)
[2023-09-23 13:28] LABS: Alanine Aminotransferase 9 U/L (0-33); Albumin Level 3.8 g/dL (3.5-5.2); Alkaline Phosphatase 83 U/L (35-105); Anion Gap 10.8 (5-19); Aspartate Amino Transferase 13 U/L (0-32); Blood Urea Nitrogen 14 mg/dL (8-23); Calcium 9.7 mg/dL (8.5-10.5); Carbon Dioxide 34 mmol/L (22-29); Chloride 96 mmol/L (98-107); Creatinine Clr Calc Pharmacy 33.1872; Globulin 3.5 g/dL (1.3-4.6); Glucose 174 mg/dL (65-115); NT Pro B Type Natriuretic Pept 234 pg/mL (0-125); Osmolality Calculated 289 mOsm/kg (285-295); Potassium 3.8 mmol/L (3.5-5.1); Sodium 137 mmol/L (136-145); Total Bilirubin 0.4 mg/dL (0.15-1.2); Total Protein 7.3 g/dL (6.6-8.7)
[2023-09-23] MEDS: SODIUM CHLORIDE 0.9% 1006.98 ML IV (14:05)
[2023-09-23] MEDS: cefTRIAXone 1,000 mg SDV 1000 MG IVP (14:05)
[2023-09-23] MEDS: azithromycin 500 MG in sodium chloride 0.9% 250 ML 250 MG IV (14:05)
--- NOTE | 2023-09-23 14:33 | CT_ITS ---
WS: [id number] CT CHEST ANGIOGRAPHY WITH REFORMATS HISTORY: sob ,tachycardia, chest pain TECHNIQUE: Contiguous axial images are obtained through the chest during arterial injection of intrav enous contrast. Images are reconstructed to evaluate the pulmonary arteries. MIP imaging also reviewe d. All CT scans at [facility] use at least one of these dose optimization techniques: automat ed exposure control; mA and/or kV adjustment per patient size (includes targeted exams where dose is matched to clinical indication); or iterative reconstruction. CONTRAST: Omnipaque 350; 100 mL IV. DLP: 150.69 mGy.cm COMPARISON: 03/02/2018 Good opacification of the pulmonary arteries. No pulmonary emboli are identified. No RIGHT heart stra in. Moderate atherosclerotic changes within the aorta. Advanced centrilobular emphysema. There is ext ensive bullous disease and areas of fibrosis and scarring throughout both lungs. LEFT lower lobe bron chial wall thickening and tree-in-bud airspace disease. No mediastinal or hilar adenopathy. Heart is normal size. No adrenal mass. Upper abdomen is negative. Increased thoracic kyphosis and osteopenia. CT/CT angio chest PE protcl [id number] IMPRESSION: 1. No pulmonary embolism. 2. LEFT lower lobe tree-in-bud airspace disease and bronchial wall thickening consistent with endobronchial pneumonia. 3. Severe centrilobular emphysema.
--- NOTE | 2023-09-23 14:33 | ECG_ITS ---
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 Measurements Intervals [place] Rate: 116 P: 79 VA: 144 QRS: 79 QRSD: 88 T: 68 QT: 342 QTc: 477 Interpretive Statements SINUS TACHYCARDIA WITH OCCASIONAL SUPRAVENTRICULAR PREMATURE COMPLEXES MODERATE ST DEPRESSION [0.05+ mV ST DEPRESSION] Compared to ECG 10/28/2021 13:33:07 ST (T wave) deviation now present Sinus rhythm no longer present T-wave abnormality no longer present Possible ischemia no longer present Electronically Signed On 09-23-2023 16:50:52 CDT by Adonis Lujan M.D. [email or web address] [email or web address] valley surgical [email or web address] Network/store/OM/[id number]
--- NOTE | 2023-09-23 14:35 | P.HP_ITS ---
Providers/Chief Complaint 2 Primary Care Provider: Ema Jansen, [facility] Chief Complaint: sob, copd History of Present Illness Karin Garcia is a 73 year old female with a past medical history of COPD, quit smoking about a year ago, hypertension, who presents [facility] for shortness of breath, cough, fatigue, malaise, chills. Patient tells me that for the last few days she is felt increasingly short of breath, productive cough, fatigue, malaise, subjective fevers, chills no hemoptysis does report intermittent chest pain, no nausea, no vomiting, no calf pain, no calf swelling, no recent travel Review of Systems 2 Const: Reports: fever(s), chills, fatigue and malaise Card: Reports: chest pain Resp: Reports: dyspnea Neuro: Denies: headache(s) Medications/Allergies Home Medications Medication Instructions Recorded Confirmed Last Taken Type oxygen concentrator with portable #1 ea 02/04/21 09/23/23 Unknown Rx oxygen atorvastatin 20 mg tablet 20 mg PO DAILY #30 tabs 09/01/23 09/23/23 09/23/23 Rx carvedilol 6.25 mg tablet 6.25 mg PO BID 30 days #60 tabs 09/01/23 09/23/23 09/23/23 Rx fluticasone furoate 100 1 inh inhalation Q24H #30 ea 09/01/23 09/23/23 09/23/23 Rx mcg/actuation blister powder for inhalation (Arnuity Ellipta) ipratropium 0.5 mg-albuterol 3 mg 3 ml inhalation Q4H PRN wheezing 09/01/23 09/23/23 Unknown Rx (2.5 mg base)/3 mL nebulization #180 mL soln lisinopril 40 mg tablet 40 mg PO DAILY #30 tabs 09/01/23 09/23/23 09/23/23 Rx magnesium oxide 400 mg PO BID #180 tabs 09/01/23 09/23/23 Unknown Rx sucralfate 1 gram tablet 1 g PO BID 30 days #60 tabs 09/01/23 09/23/23 09/23/23 Rx tiotropium bromide 18 mcg capsule 1 cap inhalation DAILY #30 09/01/23 09/23/23 09/23/23 Rx with inhalation device (Spiriva inhalations with HandiHaler) trazodone 50 mg tablet 50 mg PO BEDTIME #30 tabs 09/01/23 09/23/23 09/22/23 Rx venlafaxine 150 mg 150 mg PO DAILY #30 caps 09/01/23 09/23/23 09/23/23 Rx capsule,extended release 24 hr Lactobacillus rhamnosus GG 20 20 cell PO BID 09/23/23 09/23/23 Unknown History billion cell capsule (Probiotic Digestive Care) amlodipine 10 mg tablet (Norvasc) 10 mg PO QPM 09/23/23 09/23/23 09/22/23 History Allergies Allergy/AdvReac Type Severity Reaction Status Date / Time No Known Allergies Allergy Unverified 09/01/23 14:11 PFSH Acute 2 PFSH: Medical History Supplemental oxygen dependent Personal history of nicotine dependence Generalized anxiety disorder Allergic rhinitis due to pollen Gastro-esophageal reflux disease without esophagitis Vitamin D insufficiency History of TB (tuberculosis) Neuropathy Centrilobular emphysema Mixed hyperlipidemia Hypertension Surgical History History of arthroplasty of left hip 10/28/21 [facility] Hx of total hysterectomy with BSO History of section History of colonoscopy 2016 Family History Other Bleeding disorder Cancer Diabetes Stroke Thyroid disease Social History Smoking and tobacco/nicotine status: former use of tobacco/nicotine Second hand smoke exposure: Yes Alcohol intake: never Substance/Drug Use: unknown Adopted: No Caregiver/support person: No Lives independently: Yes Household members: family Housing: House Marital status: Number of children: 4 service: No Current occupational status: retired Current occupational exposures/hazards: No Do you think of yourself as: Straight/Heterosexual Current gender identity: Female Vitals/I&O/Wt Last Vital Signs Temp 98.5 F 09/23/23 12:06 Pulse 127 H 09/23/23 12:17 Resp 18 09/23/23 12:17 BP 120/97 09/23/23 12:10 Pulse Ox 95 09/23/23 12:17 O2 Del Method Nasal Cannula 09/23/23 12:17 O2 Flow Rate 3 09/23/23 12:17 Weight last 48 hrs Weight 33.566 kg Physical Exam 2 Const: COMMON NORMALS: no acute distress and patient oriented x3 OTHER: Has temporal muscle wasting, bilateral calves, bilateral thighs, fat pad thinning bilateral clavicles, ribs, appearing prominent Eye: COMMON NORMALS: Equal, round and reactive pupils present Neck/C-Spine: COMMON NORMALS: no JVD Resp: COMMON NORMALS: normal respiratory effort EFFORT & INSPECTION: Yes tachypneic and Yes respiratory distress AUSCULTATION: crackles and wheezes OTHER: Intercostal retractions, suprasternal retractions, nasal flaring Cardio: COMMON NORMALS: regular rate, regular rhythm, S1 normal heart sound present and S2 normal heart sound present RATE: regular rate and tachycardic RHYTHM: regular rhythm HEART SOUNDS: S1 normal heart sound present and S2 normal heart sound present GI: COMMON NORMALS: Normal to inspection, nondistended, normoactive bowel sounds present, Soft to palpation and non-tender Extremity: COMMON NORMALS: no calf tenderness and no pedal edema Neuro: COMMON NORMALS: patient oriented x3, CN's II-XII intact bilaterally and moves all extremities Psych: COMMON NORMALS: mental status grossly normal Data 09/23/23 12:45 09/23/23 12:45 Micro: Microbiology 09/23/23 12:53 Blood Culture - Preliminary Blood SPECIMEN COLLECTED 09/23/23 12:45 Blood Culture - Preliminary Blood SPECIMEN COLLECTED A&P Assessment and plan (1) Acute hypoxic respiratory failure: (2) COPD exacerbation: (3) Pneumonia: (4) Body mass index (BMI) less than 16.5: (5) Protein calorie malnutrition: (6) Physical deconditioning: Plan Acute hypoxic respiratory failure -Secondary to pneumonia -Secondary to COPD exacerbation Plan -CT angiogram of the chest -Troponin series, BNP, Pro-Luis, CRP -Respiratory viral panel -Continue DuoNeb -Solu-Medrol 40 mg IV push every 8 hours -Continue Rocephin -Continue azithromycin -Monitor respiratory status closely -Chest pain, serial EKGs consult ongoing telemetry monitoring -Tachycardia, resume Coreg, telemetry monitoring -Full code -Lovenox for DVT prophylaxis Attestations 2 Medical Necessity Statement*: Patient requires hospitalization, inpatient, greater than 2 midnights, for acute hypoxic respiratory failure secondary to pneumonia, COPD exacerbation Diagnoses Acute hypoxic respiratory failure J96.01 COPD exacerbation J44.1 Pneumonia J18.9 Body mass index (BMI) less than 16.5 Z68.1 Protein calorie malnutrition E46 Physical deconditioning R53.81
[2023-09-23 14:45] LABS: Reflex Lactate Order REFLEX LACTIC ORDERD
[2023-09-23 14:53] LABS: Charge for UA Resulting for Rev
[2023-09-23 14:59] LABS: Bilirubin Urine Negative (Negative); Blood Urine Trace (Negative); Glucose Urine UA 1+ (Normal); Ketones Urine Negative (Negative); Leukocyte Esterase Urine Negative (Negative); Nitrate Urine Negative (Negative); Protein Urine 1+ (Negative); Specific Gravity, Urine 1.014 (1.005-1.030); Urine Appearance Clear (CLEAR); pH Urine >=9.0 (5-7)
[2023-09-23 15:03] LABS: Troponin(5th) Baseline 7 ng/L (0-10)
[2023-09-23 15:04] LABS: Bacteria Urine None Seen /hpf; Hyaline Casts Urine 0.81 /lpf; Squamous Epithelial Cell Urine 0-5 /hpf (0-5); WBC Urine 0-5 /hpf (0-5)
[2023-09-23 15:14] LABS: Procalcitonin 0.12 ng/mL (0-0.5)
[2023-09-23 15:20] LABS: Urine Color Orange (Yellow)
[2023-09-23 15:21] LABS: Add Urine Culture? No
[2023-09-23] MEDS: iohexol 350 mg/mL 500 mL Btl (per mL) IV (15:23)
[2023-09-23 15:24] LABS: C Reactive Protein 10.3 mg/L (0.0-4.9)
[2023-09-23 16:58] LABS: Lactic Acid level (Lactate) 2.1 mmol/L (0.5-2.2)
--- NOTE | 2023-09-23 17:51 | ECG_ITS ---
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 Measurements Intervals [place] Rate: 101 P: 74 NE: 145 QRS: 84 QRSD: 86 T: 74 QT: 346 QTc: 450 Interpretive Statements SINUS TACHYCARDIA Compared to ECG 09/23/2023 14:42:38 ST (T wave) deviation no longer present Electronically Signed On 09-24-2023 11:58:22 CDT by Adonis Lujan M.D. [email or web address] medical [email or web address] Networkcincinnati [email or web address] hospital.[email or web address]/store/OM/[id number]
[2023-09-23] MEDS: carvedilol 6.25 mg Tablet PO (18:21)
[2023-09-23] MEDS: pantoprazole 40 mg SDV IVP (18:21)
[2023-09-23] MEDS: sucralfate 1 gm Tablet PO (18:21)
[2023-09-23 18:22] LABS: Glucose Point of Care 161 mg/dL (70-110)
[2023-09-23 19:34] LABS: Troponin 5 2HR 8.98 ng/L (0-10)
[2023-09-23] MEDS: enoxaparin 40 mg/0.4 mL Syringe SUBCUT (20:08)
[2023-09-23 20:09] LABS: Troponin 5 2HR Delta 1.98 ABS# (0-10)
[2023-09-23 20:13] LABS: Chol HDL Ratio 2.52 mg/dL (0.0-4.40); Cholesterol 199 mg/dL (0-200); HDL Cholesterol 79 mg/dL (60-100); LDL Cholesterol Calculated 101 mg/dL (50-129); LDL HDL Ratio 1.28 RATIO (0.00-3.22); Thyroid Stimulating Hormone 0.59 uIU/mL (0.27-4.20); Triglycerides 93 mg/dL (0-150)
--- NOTE | 2023-09-23 20:31 | ECG_ITS ---
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 Measurements Intervals [place] Rate: 81 P: 82 [place]: 162 QRS: 76 QRSD: 82 T: 71 QT: 372 QTc: 434 Interpretive Statements SINUS RHYTHM Compared to ECG 09/23/2023 18:13:34 Sinus tachycardia no longer present Electronically Signed On 09-24-2023 11:58:13 CDT by Adonis Lujan M.D. [id number]
[2023-09-23 21:00] LABS: Adenovirus Not Detected (NOT DETECT); Chlamydia Pneumoniae Not Detected (NOT DETECT); Coronavirus 229E,HKU1,NL63,OC4 Not Detected (NOT DETECT); Human Metapneumovirus Not Detected (NOT DETECT); Human Rhinovirus/Enterovirus Not Detected (NOT DETECT); Influenza A Not Detected (NOT DETECT); Influenza A H1 Not Detected (NOT DETECT); Influenza A H1-2009 Not Detected (NOT DETECT); Influenza A H3 Not Detected (NOT DETECT); Influenza B Not Detected (NOT DETECT); Mycoplasma Pneumoniae Not Detected (NOT DETECT); Parainfluenza Virus Type 1 Not Detected (NOT DETECT); Parainfluenza Virus Type 2 Not Detected (NOT DETECT); Parainfluenza Virus Type 3 Not Detected (NOT DETECT); Parainfluenza Virus Type 4 Not Detected (NOT DETECT); Respiratory Syncytial Virus A Not Detected (NOT DETECT); Respiratory Syncytial Virus B Not Detected (NOT DETECT); SARS-COV-2 Not Detected (NOT DETECT)
[2023-09-23 21:07] LABS: Glucose Point of Care 209 mg/dL (70-110)
[2023-09-23 21:15] LABS: Estmated Average Glucose 94; Hemoglobin A1C 4.9 % (4.0-6.0)
[2023-09-24] VITALS (14 sets, daily range): BP systolic 111–160; BP diastolic 58–74; PULSE 77–98; RESP 16–24; TEMP 36.5–36.8; O2SAT 94–100
[2023-09-24 00:27] LABS: Troponin 5 6HR 8.23 ng/L (0-10)
[2023-09-24 01:04] LABS: Troponin 5 6HR Delta 1.23 ng/L (0-12)
--- NOTE | 2023-09-24 03:48 | PC.RESP ---
Nurse called therapist for a breathing treatment. Therapist went upstairs and asked the patient if she wanted her breathing treatment now. Patient stated NO! No respiratory distress noted at this time. Patient wants to sleep.
[2023-09-24 04:46] LABS: Basophils % 0.3 %; Hematocrit 29.4 % (36-47); Lymphocytes # 0.7 10^3/uL (0.8-4.8); Lymphocytes % 6.2 %; Mean Corpuscular HGB Conc 29.3 g/dL (30-55); Mean Corpuscular Hemoglobin 28.1 pg (27-33); Mean Corpuscular Volume 96.1 fl (85-98); Mean Platelet Volume 11.3 fL (7.4-10.4); Monocytes # 0.5 10^3/uL (0.2-0.9); Monocytes % 3.9 %; Neutrophils # 10.45 10^3/uL (1.8-7.7); Neutrophils % 89.3 %; Nucleated Red Blood Cells % 0 %; Platelet Count 201 10^3/cmm (157-399); Red Blood Count 3.06 10^6/uL (3.85-5.65); White Blood Count 11.71 10^3/uL (3.29-11.43)
[2023-09-24 05:06] LABS: Anion Gap 10.9 (5-19); Blood Urea Nitrogen 16 mg/dL (8-23); Calcium 8.8 mg/dL (8.5-10.5); Carbon Dioxide 33 mmol/L (22-29); Chloride 100 mmol/L (98-107); Creatinine Clr Calc Pharmacy 31.6171; Glucose 105 mg/dL (65-115); Osmolality Calculated 292 mOsm/kg (285-295); Potassium 3.9 mmol/L (3.5-5.1); Sodium 140 mmol/L (136-145)
[2023-09-24] MEDS: methylPREDNISolone sod succ 40 mg/mL INJ IVP ×3 (06:09→21:14)
[2023-09-24 06:31] LABS: Glucose Point of Care 94 mg/dL (70-110)
[2023-09-24] MEDS: ipratropium-albuterol 3 mL Neb INHALATION ×3 (07:41→20:08)
[2023-09-24] MEDS: sucralfate 1 gm Tablet PO ×2 (09:13→17:36)
[2023-09-24] MEDS: atorvastatin 40 mg Tablet 20 MG PO (09:13)
[2023-09-24] MEDS: venlafaxine ER (24HR) 150 mg Capsule PO (09:13)
[2023-09-24] MEDS: carvedilol 6.25 mg Tablet PO ×2 (09:13→17:36)
--- NOTE | 2023-09-24 10:44 | P.PN_ITS ---
Subjective 2 Subjective: Patient was seen this morning, she continues to complain of shortness of breath, weakness, fatigue, Vitals/I&O/Wt Last Vital Signs Temp 97.7 F 09/24/23 07:28 Pulse 88 09/24/23 07:42 Resp 24 H 09/24/23 07:42 BP 139/64 09/24/23 07:28 Pulse Ox 95 09/24/23 07:42 O2 Del Method Nasal Cannula 09/24/23 07:42 O2 Flow Rate 2 09/24/23 07:42 09/23/23 09/24/23 09/24/23 22:59 06:59 14:59 Intake Total 1256.98 / 1256.98 120 / 120 Balance 1256.98 / 1256.98 120 / 120 Weight last 48 hrs Weight 39.633 kg Weight 31.978 kg Weight 33.566 kg Physical Exam 2 Const: COMMON NORMALS: no acute distress and patient oriented x3 Resp: COMMON NORMALS: normal respiratory effort, No retractions and No use of accessory muscles AUSCULTATION: crackles and wheezes Cardio: COMMON NORMALS: regular rate, regular rhythm, S1 normal heart sound present and S2 normal heart sound present RATE: regular rate RHYTHM: r egular rhythm HEART SOUNDS: S1 normal heart sound present and S2 normal heart sound present GI: COMMON NORMALS: Normal to inspection, nondistended, normoactive bowel sounds present and non-tender Extremity: COMMON NORMALS: no pedal edema Neuro: COMMON NORMALS: patient oriented x3 Psych: COMMON NORMALS: mental status grossly normal Data 09/24/23 04:26 09/24/23 04:26 Micro: Microbiology 09/23/23 12:53 Blood Culture - Preliminary Blood SPECIMEN COLLECTED 09/23/23 12:45 Blood Culture - Preliminary Blood SPECIMEN COLLECTED A&P Assessment and plan (1) Acute hypoxic respiratory failure: (2) COPD exacerbation: (3) Pneumonia: (4) Body mass index (BMI) less than 16.5: (5) Protein calorie malnutrition: (6) Physical deconditioning: Plan Acute hypoxic respiratory failure -Secondary to pneumonia -Secondary to COPD exacerbation CT/CT angio chest PE protcl [id number] IMPRESSION: 1. No pulmonary embolism. 2. LEFT lower lobe tree-in-bud airspace disease and bronchial wall thickening consistent with endobronchial pneumonia. 3. Severe centrilobular emphysema. Plan -Solu-Medrol 40 mg IV push every 8 hours -Continue Rocephin -Continue azithromycin -Monitor respiratory status closely -Chest pain, serial EKGs consult ongoing telemetry monitoring -Tachycardia, resume Coreg, telemetry monitoring -Full code -Lovenox for DVT prophylaxis Attestations 2 Medical Necessity Statement*: Patient requires hospitalization for acute COPD exacerbation, pneumonia, requiring steroids, IV antibiotics Diagnoses Acute hypoxic respiratory failure J96.01 COPD exacerbation J44.1 Pneumonia J18.9 Body mass index (BMI) less than 16.5 Z68.1 Protein calorie malnutrition E46 Physical deconditioning R53.81
[2023-09-24] MEDS: cefTRIAXone 1,000 mg SDV 1000 MG IVP (13:45)
[2023-09-24] MEDS: azithromycin 500 MG in sodium chloride 0.9% 250 ML 250 MG IV (13:55)
[2023-09-24] MEDS: water for injection-sterile 10 ML 240 ML (13:55)
[2023-09-24 16:57] LABS: Glucose Point of Care 138 mg/dL (70-110)
[2023-09-24] MEDS: pantoprazole 40 mg SDV IVP (17:36)
[2023-09-24] MEDS: enoxaparin 40 mg/0.4 mL Syringe SUBCUT (21:14)
[2023-09-24 21:57] LABS: Glucose Point of Care 129 mg/dL (70-110)
[2023-09-25] VITALS (14 sets, daily range): BP systolic 109–173; BP diastolic 60–82; PULSE 60–98; RESP 15–20; TEMP 36.5–36.8; O2SAT 93–100
[2023-09-25] MEDS: ipratropium-albuterol 3 mL Neb INHALATION ×3 (02:30→13:49)
[2023-09-25 04:26] LABS: Basophils % 0.1 %; Hematocrit 29.3 % (36-47); Lymphocytes # 0.7 10^3/uL (0.8-4.8); Lymphocytes % 5.9 %; Mean Corpuscular HGB Conc 29.4 g/dL (30-55); Mean Corpuscular Hemoglobin 27.7 pg (27-33); Mean Corpuscular Volume 94.5 fl (85-98); Mean Platelet Volume 11.2 fL (7.4-10.4); Monocytes # 0.3 10^3/uL (0.2-0.9); Monocytes % 2.4 %; Neutrophils # 10.66 10^3/uL (1.8-7.7); Neutrophils % 91.1 %; Nucleated Red Blood Cells % 0 %; Platelet Count 224 10^3/cmm (157-399); Red Cell Distribution Width 13.3 % (12.1-15.1)
[2023-09-25 04:41] LABS: Anion Gap 12.7 (5-19); Blood Urea Nitrogen 20 mg/dL (8-23); Calcium 9.1 mg/dL (8.5-10.5); Carbon Dioxide 29 mmol/L (22-29); Chloride 102 mmol/L (98-107); Creatinine Clr Calc Pharmacy 39.1858; Glucose 143 mg/dL (65-115); Osmolality Calculated 295 mOsm/kg (285-295); Potassium 3.7 mmol/L (3.5-5.1); Sodium 140 mmol/L (136-145)
[2023-09-25] MEDS: methylPREDNISolone sod succ 40 mg/mL INJ IVP ×3 (05:53→21:38)
[2023-09-25 06:47] LABS: Glucose Point of Care 127 mg/dL (70-110)
[2023-09-25] MEDS: lactobacillus 1 Tablet 1 TAB PO ×2 (08:14→17:04)
[2023-09-25] MEDS: atorvastatin 40 mg Tablet 20 MG PO (08:14)
[2023-09-25] MEDS: sucralfate 1 gm Tablet PO ×2 (08:14→17:04)
[2023-09-25] MEDS: venlafaxine ER (24HR) 150 mg Capsule PO (08:14)
[2023-09-25] MEDS: carvedilol 6.25 mg Tablet PO ×2 (08:14→17:04)
[2023-09-25 11:48] LABS: Glucose Point of Care 113 mg/dL (70-110)
[2023-09-25] MEDS: cefTRIAXone 1,000 mg SDV 1000 MG IVP (13:38)
[2023-09-25] MEDS: azithromycin 500 MG in sodium chloride 0.9% 250 ML 250 MG IV (13:48)
[2023-09-25] MEDS: water for injection-sterile 10 ML 240 ML (13:49)
--- NOTE | 2023-09-25 14:31 | P.PN_ITS ---
Subjective 2 Subjective: Patient was seen this morning continues to complain of shortness of breath and cough, no fevers, no chills Vitals/I&O/Wt Last Vital Signs Temp 97.7 F 09/25/23 11:33 Pulse 87 09/25/23 13:49 Resp 16 09/25/23 13:49 BP 173/76 09/25/23 11:33 Pulse Ox 98 09/25/23 13:49 O2 Del Method Nasal Cannula 09/25/23 13:49 O2 Flow Rate 2 09/25/23 13:49 09/24/23 09/25/23 09/25/23 22:59 06:59 14:59 Intake Total 490 / 620 546.667 / 546.667 Output Total 250 / 250 Balance 240 / 370 546.667 / 546.667 Weight last 48 hrs Weight 39.78 kg Weight 39.633 kg Weight 31.978 kg Physical Exam 2 Const: COMMON NORMALS: no acute distress and patient oriented x3 Resp: COMMON NORMALS: normal respiratory effort, No retractions and No use of accessory muscles AUSCULTATION: crackles and wheezes Cardio: COMMON NORMALS: regular rate, regular rhythm, S1 normal heart sound present and S2 normal heart sound present RATE: regular rate RHYTHM: r egular rhythm HEART SOUNDS: S1 normal heart sound present and S2 normal heart sound present GI: COMMON NORMALS: Normal to inspection, nondistended, normoactive bowel sounds present and non-tender Extremity: COMMON NORMALS: no pedal edema Neuro: COMMON NORMALS: patient oriented x3 Psych: COMMON NORMALS: mental status grossly normal Data 09/25/23 04:18 09/25/23 04:18 Micro: Microbiology 09/25/23 08:20 Gram Stain - Final Sputum - Expectorated Sputum 09/23/23 12:53 Blood Culture - Preliminary Blood NEGATIVE TO DATE 09/23/23 12:45 Blood Culture - Preliminary Blood NEGATIVE TO DATE A&P Assessment and plan (1) Acute hypoxic respiratory failure: (2) COPD exacerbation: (3) Pneumonia: (4) Body mass index (BMI) less than 16.5: (5) Protein calorie malnutrition: (6) Physical deconditioning: Plan Acute hypoxic respiratory failure -Secondary to pneumonia -Secondary to COPD exacerbation CT/CT angio chest PE protcl [id number] IMPRESSION: 1. No pulmonary embolism. 2. LEFT lower lobe tree-in-bud airspace disease and bronchial wall thickening consistent with endobronchial pneumonia. 3. Severe centrilobular emphysema. Plan -Solu-Medrol 40 mg IV push every 8 hours -Continue Rocephin -Continue azithromycin -Monitor respiratory status closely -Chest pain, serial EKGs consult ongoing telemetry monitoring -Tachycardia, resume Coreg, telemetry monitoring -Full code -Lovenox for DVT prophylaxis Attestations 2 Medical Necessity Statement*: Patient requires hospitalization for acute hypoxic respiratory failure secondary pneumonia, COPD Diagnoses Acute hypoxic respiratory failure J96.01 COPD exacerbation J44.1 Pneumonia J18.9 Body mass index (BMI) less than 16.5 Z68.1 Protein calorie malnutrition E46 Physical deconditioning R53.81
[2023-09-25] MEDS: pantoprazole 40 mg SDV IVP (17:04)
[2023-09-25 17:27] LABS: Glucose Point of Care 102 mg/dL (70-110)
[2023-09-25 20:37] LABS: Glucose Point of Care 141 mg/dL (70-110)
[2023-09-25] MEDS: enoxaparin 40 mg/0.4 mL Syringe SUBCUT (21:38)
[2023-09-26] VITALS (8 sets, daily range): BP systolic 146–187; BP diastolic 70–104; PULSE 53–107; RESP 12–19; TEMP 36.3–36.8; O2SAT 92–100
[2023-09-26 05:21] LABS: Basophils % 0.1 %; Hematocrit 32.9 % (36-47); Lymphocytes # 0.8 10^3/uL (0.8-4.8); Lymphocytes % 5.7 %; Mean Corpuscular HGB Conc 29.5 g/dL (30-55); Mean Corpuscular Volume 94.8 fl (85-98); Mean Platelet Volume 11.7 fL (7.4-10.4); Monocytes # 0.5 10^3/uL (0.2-0.9); Monocytes % 3.7 %; Neutrophils # 11.77 10^3/uL (1.8-7.7); Nucleated Red Blood Cells % 0 %; Platelet Count 290 10^3/cmm (157-399); Red Blood Count 3.47 10^6/uL (3.85-5.65); Red Cell Distribution Width 13.5 % (12.1-15.1); White Blood Count 13.08 10^3/uL (3.29-11.43)
[2023-09-26 05:40] LABS: Anion Gap 16.2 (5-19); Blood Urea Nitrogen 20 mg/dL (8-23); Calcium 9.4 mg/dL (8.5-10.5); Carbon Dioxide 30 mmol/L (22-29); Chloride 99 mmol/L (98-107); Creatinine Clr Calc Pharmacy 39.9589; Glucose 106 mg/dL (65-115); Osmolality Calculated 295 mOsm/kg (285-295); Potassium 4.2 mmol/L (3.5-5.1); Sodium 141 mmol/L (136-145)
[2023-09-26] MEDS: methylPREDNISolone sod succ 40 mg/mL INJ IVP ×2 (06:12→14:23)
[2023-09-26 06:26] LABS: Glucose Point of Care 108 mg/dL (70-110)
[2023-09-26] MEDS: sucralfate 1 gm Tablet PO ×2 (08:20→17:19)
[2023-09-26] MEDS: venlafaxine ER (24HR) 150 mg Capsule PO (08:20)
[2023-09-26] MEDS: carvedilol 6.25 mg Tablet PO ×2 (08:21→17:19)
[2023-09-26] MEDS: atorvastatin 40 mg Tablet 20 MG PO (08:21)
[2023-09-26] MEDS: lactobacillus 1 Tablet 1 TAB PO ×2 (08:21→17:19)
[2023-09-26 11:01] LABS: Glucose Point of Care 98 mg/dL (70-110)
[2023-09-26] MEDS: azithromycin 500 MG in sodium chloride 0.9% 250 ML 250 MG IV (14:22)
[2023-09-26] MEDS: cefTRIAXone 1,000 mg SDV 1000 MG IVP (14:24)
[2023-09-26 16:56] LABS: Glucose Point of Care 98 mg/dL (70-110)
[2023-09-26] MEDS: pantoprazole DR 40 mg Tablet PO (17:19)
--- NOTE | 2023-09-26 17:23 | P.PN_ITS ---
Subjective 2 Subjective: The patient was seen this morning, she continues to complain of weakness, fatigue, wheezing Vitals/I&O/Wt Last Vital Signs Temp 97.9 F 09/26/23 15:43 Pulse 85 09/26/23 15:43 Resp 18 09/26/23 15:43 BP 178/88 09/26/23 15:43 Pulse Ox 100 09/26/23 15:43 O2 Del Method Nasal Cannula 09/26/23 15:43 O2 Flow Rate 2 09/26/23 09:30 09/26/23 09/26/23 09/26/23 06:59 14:59 22:59 Intake Total 480 / 480 250 / 730 Balance 480 / 480 250 / 730 Weight last 48 hrs Weight 40.415 kg Weight 39.78 kg Physical Exam 2 Const: COMMON NORMALS: no acute distress and patient oriented x3 Resp: COMMON NORMALS: normal respiratory effort, No retractions and No use of accessory muscles AUSCULTATION: wheezes Cardio: COMMON NORMALS: regular rate, regular rhythm, S1 normal heart sound present and S2 normal heart sound present RATE: regular rate RHYTHM: r egular rhythm HEART SOUNDS: S1 normal heart sound present and S2 normal heart sound present GI: COMMON NORMALS: Normal to inspection, nondistended, normoactive bowel sounds present and non-tender Extremity: COMMON NORMALS: no pedal edema Neuro: COMMON NORMALS: patient oriented x3 Psych: COMMON NORMALS: mental status grossly normal Data 09/26/23 04:28 09/26/23 04:28 Micro: Microbiology 09/25/23 08:20 Gram Stain - Final Sputum - Expectorated Sputum Sputum Culture - Preliminary A&P Assessment and plan (1) Acute hypoxic respiratory failure: (2) COPD exacerbation: (3) Pneumonia: (4) Body mass index (BMI) less than 16.5: (5) Protein calorie malnutrition: (6) Physical deconditioning: Plan Acute hypoxic respiratory failure -Secondary to pneumonia -Secondary to COPD exacerbation CT/CT angio chest PE protcl [id number] IMPRESSION: 1. No pulmonary embolism. 2. LEFT lower lobe tree-in-bud airspace disease and bronchial wall thickening consistent with endobronchial pneumonia. 3. Severe centrilobular emphysema. Plan -Prednisone 40 mg daily -Continue Rocephin -Continue azithromycin -Monitor respiratory status closely -Chest pain, serial EKGs consult ongoing telemetry monitoring -Tachycardia, resume Coreg, telemetry monitoring -Full code -Lovenox for DVT prophylaxis Plan for today, continue steroids, antibiotics, plan to discharge in the next 24 hours Attestations 2 Medical Necessity Statement*: Patient requires hospitalization for acute hypoxic respiratory failure secondary COPD, pneumonia Diagnoses Acute hypoxic respiratory failure J96.01 COPD exacerbation J44.1 Pneumonia J18.9 Body mass index (BMI) less than 16.5 Z68.1 Protein calorie malnutrition E46 Physical deconditioning R53.81
[2023-09-26 20:27] LABS: Glucose Point of Care 139 mg/dL (70-110)
[2023-09-26] MEDS: enoxaparin 40 mg/0.4 mL Syringe SUBCUT (20:28)
[2023-09-26] MEDS: hyDRALAzine 20 mg/mL INJ 1 mL 10 MG IVP (22:35)
[2023-09-27 04:00] VITALS: BP 119/70; PULSE 104; RESP 14; TEMP 36.4; O2SAT 97
[2023-09-27 04:21] LABS: Basophils % 0.1 %; Hematocrit 33.4 % (36-47); Lymphocytes # 1.3 10^3/uL (0.8-4.8); Lymphocytes % 10.2 %; Mean Corpuscular HGB Conc 30.2 g/dL (30-55); Mean Corpuscular Hemoglobin 27.9 pg (27-33); Mean Corpuscular Volume 92.3 fl (85-98); Mean Platelet Volume 11.6 fL (7.4-10.4); Monocytes # 1.2 10^3/uL (0.2-0.9); Monocytes % 9.5 %; Neutrophils # 9.86 10^3/uL (1.8-7.7); Neutrophils % 79.6 %; Nucleated Red Blood Cells % 0 %; Platelet Count 330 10^3/cmm (157-399); Red Blood Count 3.62 10^6/uL (3.85-5.65); Red Cell Distribution Width 13.4 % (12.1-15.1); White Blood Count 12.38 10^3/uL (3.29-11.43)
[2023-09-27 04:47] LABS: Anion Gap 13.6 (5-19); Blood Urea Nitrogen 21 mg/dL (8-23); Calcium 9.2 mg/dL (8.5-10.5); Carbon Dioxide 29 mmol/L (22-29); Chloride 102 mmol/L (98-107); Creatinine Clr Calc Pharmacy 37.0442; Glucose 106 mg/dL (65-115); Osmolality Calculated 295 mOsm/kg (285-295); Potassium 3.6 mmol/L (3.5-5.1); Sodium 141 mmol/L (136-145)
[2023-09-27 06:23] LABS: Glucose Point of Care 87 mg/dL (70-110)
[2023-09-27 07:03] VITALS: BP 144/81; PULSE 93; RESP 15; TEMP 36.8; O2SAT 96
[2023-09-27] MEDS: lactobacillus 1 Tablet 1 TAB PO (08:29)
[2023-09-27] MEDS: venlafaxine ER (24HR) 150 mg Capsule PO (08:29)
[2023-09-27] MEDS: carvedilol 6.25 mg Tablet PO (08:29)
[2023-09-27] MEDS: atorvastatin 40 mg Tablet 20 MG PO (08:29)
[2023-09-27] MEDS: predniSONE 20 mg Tablet 40 MG PO (08:29)
[2023-09-27] MEDS: sucralfate 1 gm Tablet PO (08:29)
--- NOTE | 2023-09-27 11:01 | PM.DCS ---
Discharge Providers Date of Admission: 09/23/23 16:27 Date of Discharge: September 27, 2023 Attending Provider at Admission: Claudio Cortes MD Attending Provider at Discharge: Claudio Cortes MD Primary Care Provider: TERRELL Hopper Diagnoses at Discharge Discharge Diagnosis (1) Acute hypoxic respiratory failure: Status: Acute (2) COPD exacerbation: Status: Acute (3) Pneumonia: Status: Acute (4) Body mass index (BMI) less than 16.5: Status: Acute (5) Protein calorie malnutrition: Status: Acute (6) Physical deconditioning: Status: Acute Reason for Visit Reason for Visit: sob, copd Hospital Course Hospital Course Karin Garcia is a 73 year old female with a past medical history of COPD, quit smoking about a year ago, hypertension, who presents [facility] for shortness of breath, cough, fatigue, malaise, chills. Patient tells me that for the last few days she is felt increasingly short of breath, productive cough, fatigue, malaise, subjective fevers, chills no hemoptysis does report intermittent chest pain, no nausea, no vomiting, no calf pain, no calf swelling, no recent travel Patient was admitted to [facility] for acute hypoxic respiratory failure secondary to pneumonia, secondary to COPD, required inpatient admission, IV antibiotics, steroid therapy, overall clinically improved. Patient will be discharged on a prednisone taper, doxycycline with instructions to follow-up with primary care provider this week, follow-up with pulmonary in 1 week. Physical Exam Const: COMMON NORMALS: no acute distress and patient oriented x3 Resp: COMMON NORMALS: normal respiratory effort, No retractions, No use of accessory muscles and clear to auscultation bilaterally AUSCULTATION: clear to auscultation bilaterally Cardio: COMMON NORMALS: regular rate, regular rhythm, S1 normal heart sound present and S2 normal heart sound present RATE: regular rate RHYTHM: regular rhythm HEART SOUNDS: S1 normal heart sound present and S2 normal heart sound present GI: COMMON NORMALS: Normal to inspection, nondistended, normoactive bowel sounds present and non-tender Extremity: COMMON NORMALS: no pedal edema Neuro: COMMON NORMALS: patient oriented x3 Psych: COMMON NORMALS: mental status grossly normal Discharge Data Studies Completed and Pending Completed Studies During Hospitalization Category Date Time Status CT angio chest PE protcl [id number] Stat Cat Scan 09/23/23 14:33 Completed XR chest 1V portable [id number] Stat Exams 09/23/23 11:57 Completed Pending at discharge Category Date Time Status Basic Metabolic Panel AM LABS Lab 09/28/23 04:00 Ordered Basic Metabolic Panel AM LABS Lab 09/29/23 04:00 Ordered Blood Culture Stat Lab 09/23/23 12:53 Results Complete Blood Count w/Auto AM LABS Lab 09/28/23 04:00 Ordered Complete Blood Count w/Auto AM LABS Lab 09/29/23 04:00 Ordered Sputum Culture and Gram Stain Stat Lab 09/25/23 08:20 Results Radiology Impressions Chest X-Ray 09/23/23 11:57 IMPRESSION: Subsegmental area of increased opacification at the LEFT costophrenic angle. Probably an area of pneumonitis or pneumonitis. Chronic emphysema. Chest CTA 09/23/23 14:33 IMPRESSION: 1. No pulmonary embolism. 2. LEFT lower lobe tree-in-bud airspace disease and bronchial wall thickening consistent with endobronchial pneumonia. 3. Severe centrilobular emphysema. Laboratory Results WBC 12.38 10^3/uL (3.29-11.43) H 09/27/23 03:01 RBC 3.62 10^6/uL (3.85-5.65) L 09/27/23 03:01 Hgb 10.10 g/dL (11.27-16.99) L 09/27/23 03:01 Hct 33.4 % (36-47) L 09/27/23 03:01 MCV 92.3 fl (85-98) 09/27/23 03:01 MCH 27.9 pg (27-33) 09/27/23 03:01 MCHC 30.2 g/dL (30-55) 09/27/23 03:01 RDW 13.4 % (12.1-15.1) 09/27/23 03:01 Plt Count 330 10^3/cmm (157-399) 09/27/23 03:01 MPV 11.6 fL (7.4-10.4) H 09/27/23 03:01 Neut % (Auto) 79.6 % 09/27/23 03:01 Lymph % (Auto) 10.2 % 09/27/23 03:01 [place] % (Auto) 9.5 % 09/27/23 03:01 Eos % (Auto) 0.0 % 09/27/23 03:01 Baso % (Auto) 0.1 % 09/27/23 03:01 Neut # (Auto) 9.86 10^3/uL (1.8-7.7) H 09/27/23 03:01 Lymph # (Auto) 1.3 10^3/uL (0.8-4.8) 09/27/23 03:01 [place] # (Auto) 1.2 10^3/uL (0.2-0.9) H 09/27/23 03:01 Eos # (Auto) 0.0 10^3/uL (0.0-0.8) 09/27/23 03:01 Baso # (Auto) 0.0 10^3/uL (0.0-0.1) 09/27/23 03:01 Nucleated RBC % (auto) 0 % 09/27/23 03:01 Nucleated RBCs # 0.0 /100WBC 09/27/23 03:01 Specimen Type Arterial 09/23/23 12:14 Sample Site Radial, left 09/23/23 12:14 ABG pH 7.43 (7.35-7.45) 09/23/23 12:14 ABG pCO2 57.4 mmHg (35-45) H 09/23/23 12:14 ABG pO2 59.9 mmHg (80.0-100.0) L 09/23/23 12:14 ABG HCO3 38.2 mmol/L (22-26) H 09/23/23 12:14 ABG O2 Saturation 93.5 09/23/23 12:14 ABG Base Excess 12.0 mmol/L (-2.0-2.0) H 09/23/23 12:14 Bal Test Pos 09/23/23 12:14 A-a O2 Gradient 2.6 mmHg (5-10) L 09/23/23 12:14 Hematocrit 32.3 % (37-47) L 09/23/23 12:14 Hgb O2 Saturation 91.7 % (95-100) L 09/23/23 12:14 Carboxyhemoglobin 0.6 %THgb (0.4-20.1) 09/23/23 12:14 Methemoglobin 1.3 % (0.4-1.5) 09/23/23 12:14 Total Hemoglobin 10.5 g/dL (12-16) L 09/23/23 12:14 Sodium 139.0 mmol/L (131-143) 09/23/23 12:14 Potassium 3.5 mmol/L (3.5-5.0) 09/23/23 12:14 Glucose 179.0 mg/dL (70-115) H 09/23/23 12:14 Ionized Calcium 1.3 mmol/L (1.1-1.4) 09/23/23 12:14 O2 Delivery Device Nc 09/23/23 12:14 O2 Liters/Min 3.0 % 09/23/23 12:14 Traffic Recorder ID [place] 09/23/23 12:14 Sodium 141 mmol/L (136-145) 09/27/23 03:01 Potassium 3.6 mmol/L (3.5-5.1) 09/27/23 03:01 Chloride 102 mmol/L (98-107) 09/27/23 03:01 Carbon Dioxide 29 mmol/L (22-29) 09/27/23 03:01 Anion Gap 13.6 (5-19) 09/27/23 03:01 BUN 21 mg/dL (8-23) 09/27/23 03:01 Creatinine 0.5 mg/dL (0.5-0.9) 09/27/23 03:01 GFR Calculation Not Reportable 09/27/23 03:01 Glucose 106 mg/dL (65-115) 09/27/23 03:01 POC Glucose 87 mg/dL (70-110) 09/27/23 06:12 Estimat Average Glucose 94 09/23/23 12:45 Hemoglobin A1c 4.9 % (4.0-6.0) 09/23/23 12:45 Calculated Osmolality 295 mOsm/kg (285-295) 09/27/23 03:01 Lactic Acid 2.6 mmol/L (0.5-2.2) H 09/23/23 12:45 Lactic Acid (Sepsis) 2.1 mmol/L (0.5-2.2) 09/23/23 16:38 Calcium 9.2 mg/dL (8.5-10.5) 09/27/23 03:01 Total Bilirubin 0.4 mg/dL (0.15-1.2) 09/23/23 12:45 AST 13 U/L (0-32) 09/23/23 12:45 ALT 9 U/L (0-33) 09/23/23 12:45 Alkaline Phosphatase 83 U/L (35-105) 09/23/23 12:45 Troponin T Baseline 7 ng/L (0-10) 09/23/23 12:45 Troponin T 120 Minute 8.98 ng/L (0-10) 09/23/23 19:02 Delta Troponin T 1.98 ABS# (0-10) 09/23/23 19:02 Troponin T Hi Sens 6Hr 8.23 ng/L (0-10) 09/23/23 23:56 Troponin T Hi Sens 6Hr Delta 1.23 ng/L (0-12) 09/23/23 23:56 C-Reactive Protein 10.3 mg/L (0.0-4.9) H 09/23/23 12:45 NT-Pro-B Natriuret Pep 234 pg/mL (0-125) H 09/23/23 12:45 NT-Pro-B Natriuret Pep Cancelled 09/23/23 12:45 Total Protein 7.3 g/dL (6.6-8.7) 09/23/23 12:45 Albumin 3.8 g/dL (3.5-5.2) 09/23/23 12:45 Globulin 3.5 g/dL (1.3-4.6) 09/23/23 12:45 Triglycerides 93 mg/dL (0-150) 09/23/23 12:45 Cholesterol 199 mg/dL (0-200) 09/23/23 12:45 LDL Cholesterol, Calc 101 mg/dL (50-129) 09/23/23 12:45 HDL Cholesterol 79 mg/dL (60-100) 09/23/23 12:45 LDL/HDL Ratio 1.28 RATIO (0.00-3.22) 09/23/23 12:45 Cholesterol/HDL Ratio 2.52 mg/dL (0.0-4.40) 09/23/23 12:45 Procalcitonin 0.12 ng/mL (0-0.5) 09/23/23 12:45 TSH 0.59 uIU/mL (0.27-4.20) 09/23/23 12:45 Urine Color [place] (Yellow) A 09/23/23 14:44 Urine Appearance Clear (CLEAR) 09/23/23 14:44 Urine pH >=9.0 (5-7) A 09/23/23 14:44 Ur Specific [place] 1.014 (1.005-1.030) 09/23/23 14:44 Urine Protein 1+ (Negative) A 09/23/23 14:44 Urine Glucose (UA) 1+ (Normal) H 09/23/23 14:44 Urine Ketones Negative (Negative) 09/23/23 14:44 Urine Blood Trace (Negative) A 09/23/23 14:44 Urine Nitrate Negative (Negative) 09/23/23 14:44 Urine Bilirubin Negative (Negative) 09/23/23 14:44 Urine Urobilinogen 1.0 mg/dL (Negative) 09/23/23 14:44 Ur Leukocyte Esterase Negative (Negative) 09/23/23 14:44 Urine RBC 11-20 /hpf (0-2) H 09/23/23 14:44 Urine WBC 0-5 /hpf (0-5) 09/23/23 14:44 Ur Squamous Epith Cells 0-5 /hpf (0-5) 09/23/23 14:44 Amorphous Sediment Not Reportable 09/23/23 14:44 Urine Bacteria None seen /hpf (NONE) 09/23/23 14:44 Hyaline Casts 0.81 /lpf 09/23/23 14:44 Adenovirus (PCR) Not detected (NOT DETECT) 09/23/23 18:45 C. pneumoniae DNA (PCR) Not detected (NOT DETECT) 09/23/23 18:45 Coronavirus 229E (PCR) Not detected (NOT DETECT) 09/23/23 18:45 Human Metapneumovir PCR Not detected (NOT DETECT) 09/23/23 18:45 Influenza A (H1) PCR Not detected (NOT DETECT) 09/23/23 18:45 Influ A (H1/09) PCR Not detected (NOT DETECT) 09/23/23 18:45 Influenza A (H3) PCR Not detected (NOT DETECT) 09/23/23 18:45 Influenza Type A (PCR) Not detected (NOT DETECT) 09/23/23 18:45 Influenza Type B (PCR) Not detected (NOT DETECT) 09/23/23 18:45 M. pneumoniae (PCR) Not detected (NOT DETECT) 09/23/23 18:45 Parainfluenza 1 (PCR) Not detected (NOT DETECT) 09/23/23 18:45 Parainfluenza 2 (PCR) Not detected (NOT DETECT) 09/23/23 18:45 Parainfluenza 3 (PCR) Not detected (NOT DETECT) 09/23/23 18:45 Parainfluenza 4 (PCR) Not detected (NOT DETECT) 09/23/23 18:45 RSV Type A (PCR) Not detected (NOT DETECT) 09/23/23 18:45 RSV Type B (PCR) Not detected (NOT DETECT) 09/23/23 18:45 Entero/Rhino (PCR) Not detected (NOT DETECT) 09/23/23 18:45 SARS-CoV-2 (PCR) Not detected (NOT DETECT) 09/23/23 18:45 Vitals Last Vital Signs Temp 98.2 F 09/27/23 07:03 Pulse 93 09/27/23 07:03 Resp 15 09/27/23 07:03 BP 144/81 09/27/23 07:03 Pulse Ox 96 09/27/23 07:03 O2 Del Method Nasal Cannula 09/27/23 07:03 O2 Flow Rate 2 09/27/23 07:03 Discharge Plan Discharge Patient Disposition: Home Condition: Stable Prescriptions: New prednisone 10 mg tablet See Rx Instructions .ROUTE .COMPLEX Qty: 53 0RF Rx Instructions: 4 tabs a day for 5 days, 3 tabs a day for 5 days, 2 tabs a day for 5 days, 1 tab a day for 5 days,0.5 tab for 5 days doxycycline hyclate 100 mg tablet 100 mg PO BID 7 Days Qty: 14 0RF Continued atorvastatin 20 mg tablet 20 mg PO DAILY Qty: 30 2RF carvedilol 6.25 mg tablet 6.25 mg PO BID 30 Days Qty: 60 2RF Arnuity Ellipta 100 mcg/actuation blister with device 1 inh inhalation Q24H Qty: 30 2RF ipratropium-albuterol 0.5 mg-3 mg(2.5 mg base)/3 mL solution for nebulization 3 ml inhalation Q4H PRN (Reason: wheezing) Qty: 180 2RF lisinopril 40 mg tablet 40 mg PO DAILY Qty: 30 2RF magnesium oxide 400 mg magnesium tablet 400 mg PO BID Qty: 180 0RF sucralfate 1 gram tablet 1 g PO BID 30 Days Qty: 60 2RF tiotropium bromide [Spiriva with HandiHaler] 18 mcg capsule, w/inhalation device 1 cap inhalation DAILY Qty: 30 2RF Rx Instructions: puncture 1 cap using device; one dose = 2 inhalations trazodone 50 mg tablet 50 mg PO BEDTIME Qty: 30 2RF venlafaxine 150 mg capsule,extended release 24hr 150 mg PO DAILY Qty: 30 2RF Probiotic Digestive Care 20 billion cell capsule 20 cell PO BID Discontinued Norvasc 10 mg tablet 10 mg PO QPM No Action (DME) oxygen concentrator with portable oxygen See Rx Instructions .Route .MEDSUPPLY Qty: 1 0RF Rx Instructions: As directed oxygen concentrator with portable oxygen 2 liters 24 hours Discharge Orders: Discharge Order (Routine); Ordered 09/27/23 Ordered By: Claudio Cortes Referrals: [facility] [Outside] Becky Bhandari MD [Physician] - 1-3 days Ema Jansen FNP-C [Primary Care Provider] - 1-3 days Discharge Diet: Cardiac Discharge Activity: Resume usual activity Patient Instructions: Opioid Safety, Pain Management Activity Restrictions/Additional Instructions: - Monitor for recurrent shortness of breath ? Please stop smoking ? Take antibiotics as prescribed ? Follow-up with primary care provider this week Discharge Attestations Time Spent in Discharge Care*: greater than 30 min Time Spent in Smoking Cessation: 3 to 10 minutes Morbidity mortality associate with smoking, Quality Metrics Clinical Quality Measures [ No reported AMI, CVA or VTE this stay] Coding Level of Care Code 09536 Total time (in minutes) for Discharge: 45 Diagnoses Acute hypoxic respiratory failure J96.01 COPD exacerbation J44.1 Pneumonia J18.9 Body mass index (BMI) less than 16.5 Z68.1 Protein calorie malnutrition E46 Physical deconditioning R53.81
[2023-09-27] MEDS: lisinopril 20 mg Tablet 40 MG PO (11:07)
[2023-09-27 11:30] VITALS: BP 125/71; BP 144/81; PULSE 88; PULSE 93; RESP 15; RESP 16; TEMP 36.7; TEMP 36.8; O2SAT 96; O2SAT 99
[2023-09-27 12:02] LABS: Glucose Point of Care 114 mg/dL (70-110)
[2023-09-27 13:04] VITALS: PULSE 102; RESP 18; O2SAT 95
== END 2023-09-27 14:40 | disposition home or self-care (01) | DRG 193 ==
LOC: ER 14:12 → MEDSURG 16:27
PROVIDERS: Admitting Provider Family Medicine; Emergency Provider Family Medicine; PCP Nurse Practitioner; Visit Provider Family Medicine
DX: J18.9 Pneumonia, unspecified organism (principal); J96.21 Acute and chronic respiratory failure with hypoxia; J44.1 Chronic obstructive pulmonary disease with (acute) exacerbation; E46 Unspecified protein-calorie malnutrition; Z68.1 Body mass index [BMI] 19.9 or less, adult; J43.2 Centrilobular emphysema; I10 Essential (primary) hypertension; F41.1 Generalized anxiety disorder; K21.9 Gastro-esophageal reflux disease without esophagitis; G62.9 Polyneuropathy, unspecified; E78.2 Mixed hyperlipidemia; Z96.642 Presence of left artificial hip joint; Z11.52 Encounter for screening for COVID-19; Z87.891 Personal history of nicotine dependence; Z86.11 Personal history of tuberculosis; Z99.81 Dependence on supplemental oxygen
CPT/HCPCS: 36415; 36416; 36600; 71045; 71275; 80048; 80051; 80053; 80061; 81003; 81015; 82330; 82805; 82962; 83036; 83605; 83880; 84145; 84443; 84484; 85025; 86140; 87040; 87070; 87205; 87486; 87581; 87633; 93005; 94640; 94664; 96365; 96372; 96375; 97116; 97161; 97530; 99285; J0360; J0456; J0696; J1650; J2470; J2919; J7030; J7050; J7512; Q9967

== ENCOUNTER 2023-11-24 17:15 | Observation (INO) | payer MEDICAID, SELFPAY ==
[2023-11-24] VITALS (9 sets, daily range): BP systolic 106–195; BP diastolic 49–101; PULSE 69–102; RESP 15–22; TEMP 36.3; O2SAT 95–100; BMI 18.1
--- NOTE | 2023-11-24 18:05 | ED_ITS ---
HPI - Dizziness 2 General: Chief Complaint: Dizziness Stated Complaint: Dizzy, Not taken care of. Time Seen by Provider: 11/24/23 18:01 History of Present Illness: HPI Narrative: Patient presents to the ER with complaints of dizziness and shortness of breath. Patient has audible rhonchi. Patient is normally on 2 L oxygen at all times she is requiring 4 L to keep her sats up in the mid 90s. When EMS arrived to the patient's house they said he was poor condition in disrepair and she was sitting in feces and dirt. She does not know the last time she ate or drank. However she is alert and oriented x 4. Patient was very hypertensive with a blood pressure 195/101. She said she is often dizzy and kind of keeps walking into rangel. She says she takes all of her medicine as directed but she cannot tell me any of her medicine. Related Data Home Medications Medication Instructions Recorded Confirmed Lactobacillus rhamnosus GG 20 20 cell PO BID 09/23/23 09/30/23 billion cell capsule (Probiotic Digestive Care) Previous Rx's Medication Instructions Recorded oxygen concentrator with portable #1 ea 02/04/21 oxygen atorvastatin 20 mg tablet 20 mg PO DAILY #30 tabs 09/01/23 carvedilol 6.25 mg tablet 6.25 mg PO BID 30 days #60 tabs 09/01/23 fluticasone furoate 100 1 inh inhalation Q24H #30 ea 09/01/23 mcg/actuation blister powder for inhalation (Arnuity Ellipta) ipratropium 0.5 mg-albuterol 3 mg 3 ml inhalation Q4H PRN wheezing 09/01/23 (2.5 mg base)/3 mL nebulization #180 mL soln lisinopril 40 mg tablet 40 mg PO DAILY #30 tabs 09/01/23 magnesium oxide 400 mg PO BID #180 tabs 09/01/23 sucralfate 1 gram tablet 1 g PO BID 30 days #60 tabs 09/01/23 tiotropium bromide 18 mcg capsule 1 cap inhalation DAILY #30 09/01/23 with inhalation device (Spiriva inhalations with HandiHaler) trazodone 50 mg tablet 50 mg PO BEDTIME #30 tabs 09/01/23 venlafaxine 150 mg 150 mg PO DAILY #30 caps 09/01/23 capsule,extended release 24 hr prednisone 10 mg tablet See Rx Instructions .Route 09/27/23 .COMPLEX #53 tabs glycerin (adult) (Fleet Glycerin 1 supp [place] DAILY PRN constipation 09/30/23 (Adult) rectal suppository) #12 ea magnesium hydroxide 400 mg/5 mL 30 ml PO BID PRN constipation #355 09/30/23 oral suspension (Milk of Magnesia) mL nystatin 100,000 unit/mL oral 5 ml PO TID #200 mL 09/30/23 suspension Allergies Allergy/AdvReac Type Severity Reaction Status Date / Time No Known Allergies Allergy Unverified 09/30/23 11:34 Review of Systems 2 General: Reports: 10 or more systems reviewed and unremarkable except in HPI and below PFSH ED 2 PFSH: Medical History Supplemental oxygen dependent Personal history of nicotine dependence Generalized anxiety disorder Allergic rhinitis due to pollen Gastro-esophageal reflux disease without esophagitis Vitamin D insufficiency History of TB (tuberculosis) Neuropathy Centrilobular emphysema Mixed hyperlipidemia Hypertension Surgical History History of arthroplasty of left hip 10/28/21 [facility] Hx of total hysterectomy with BSO History of section History of colonoscopy 2016 Family History Other Bleeding disorder Cancer Diabetes Stroke Thyroid disease Social History Smoking and tobacco/nicotine status: former use of tobacco/nicotine Second hand smoke exposure: Yes Alcohol intake: never Substance/Drug Use: unknown Adopted: No Caregiver/support person: No Lives independently: Yes Household members: family Housing: House Marital status: Number of children: 4 service: No Current occupational status: retired Current occupational exposures/hazards: No Do you think of yourself as: Straight/Heterosexual Current gender identity: Female Physical Exam 2 Const: COMMON NORMALS: no acute distress, average body habitus, patient oriented x3, no limitations, healthy appearing, alert and well nourished HENMT: COMMON NORMALS: normocephalic, atraumatic, hearing grossly normal bilaterally, external ears normal, Normal external nose present and moist oral mucous membranes HEAD & SCALP: normocephalic and atraumatic NOSE: Normal external nose present EXTERNAL EAR: Yes external ears normal Eye: COMMON NORMALS: Equal, round and reactive pupils present, EOMs intact bilaterally, conjunctivae normal and no scleral icterus CONJUNCTIVA: Yes conjunctivae normal PUPIL: Yes Equal, round and reactive pupils present Neck/C-Spine: COMMON NORMALS: no JVD Chest: COMMONS NORMALS: normal inspection of the chest and normal palpation of entire chest wall Resp: COMMON NORMALS: normal respiratory effort, No retractions and No use of accessory muscles; negative for clear to auscultation bilaterally (Diffuse rhonchi throughout) A USCULTATION: not clear to auscultation bilaterally (Diffuse rhonchi throughout) Cardio: COMMON NORMALS: no JVD, regular rate, regular rhythm, S1 normal heart sound present, S2 normal heart sound present, No gallops present (Cardio), No clicks present (Cardio), No murmurs present (Cardio) and No rub (Cardio) R ATE: regular rate RHYTHM: regular rhythm HEART SOUNDS: S1 normal heart sound present and S2 normal heart sound present GI: COMMON NORMALS: Normal to inspection, nondistended, normoactive bowel sounds present, Soft to palpation, non-tender, No hepatosplenomegaly present and no masses PALPATION: Yes Soft to palpation and Yes No hepatosplenomegaly present Neuro: COMMON NORMALS: patient oriented x3 SENSORIUM/ORIENTATION: Yes alert Course 2 Vital Signs: Vital signs: Vital Signs Temperature 97.4 F L 11/24/23 17:47 Pulse Rate 97 11/24/23 21:37 Respiratory Rate 22 H 11/24/23 21:37 Blood Pressure 172/83 11/24/23 21:37 Pulse Oximetry 100 11/24/23 21:37 Oxygen Delivery Me thod Room Air 11/24/23 20:46 Oxygen Flow Rate 4 11/24/23 18:48 MDM - Dizziness Medical Decision Making Discussed case with Dr. Mclaughlin due to her hypertension is uncontrolled and possible encephalopathy with confusion and forgetfulness as well as her hypokalemia and hypophosphatemia will place patient observation for further evaluation and treatment. We will have case management talk to them in the morning. Medical Records I reviewed the patient's medical records. Lab Data I reviewed the patient's lab results. 11/24/23 20:12 11/24/23 20:12 Radiology Impressions Chest X-Ray 11/24/23 21:02 IMPRESSION: No acute cardiopulmonary process. Laboratory Results WBC 6.81 10^3/uL (3.29-11.43) 11/24/23 20:12 RBC 3.58 10^6/uL (3.85-5.65) L 11/24/23 20:12 Hgb 10.20 g/dL (11.27-16.99) L 11/24/23 20:12 Hct 33.7 % (36-47) L 11/24/23 20:12 MCV 94.1 fl (85-98) 11/24/23 20:12 MCH 28.5 pg (27-33) 11/24/23 20:12 MCHC 30.3 g/dL (30-55) 11/24/23 20:12 RDW 12.4 % (12.1-15.1) 11/24/23 20:12 Plt Count 270 10^3/cmm (157-399) 11/24/23 20:12 MPV 11.0 fL (7.4-10.4) H 11/24/23 20:12 Neut % (Auto) 80.4 % 11/24/23 20:12 Lymph % (Auto) 11.6 % 11/24/23 20:12 [place] % (Auto) 7.2 % 11/24/23 20:12 Eos % (Auto) 0.1 % 11/24/23 20:12 Baso % (Auto) 0.4 % 11/24/23 20:12 Neut # (Auto) 5.47 10^3/uL (1.8-7.7) 11/24/23 20:12 Lymph # (Auto) 0.8 10^3/uL (0.8-4.8) 11/24/23 20:12 [place] # (Auto) 0.5 10^3/uL (0.2-0.9) 11/24/23 20:12 Eos # (Auto) 0.0 10^3/uL (0.0-0.8) 11/24/23 20:12 Baso # (Auto) 0.0 10^3/uL (0.0-0.1) 11/24/23 20:12 Nucleated RBC % (auto) 0 % 11/24/23 20:12 Nucleated RBCs # 0.0 /100WBC 11/24/23 20:12 Specimen Type Arterial 11/24/23 21:34 Sample Site Brachial, right 11/24/23 21:34 ABG pH 7.37 (7.35-7.45) 11/24/23 21:34 ABG pCO2 66.8 mmHg (35-45) H* 11/24/23 21:34 ABG pO2 126.0 mmHg (80.0-100.0) H 11/24/23 21:34 ABG HCO3 38.4 mmol/L (22-26) H 11/24/23 21:34 ABG O2 Saturation > 99.1 11/24/23 21:34 ABG Base Excess 11.1 mmol/L (-2.0-2.0) H 11/24/23 21:34 Bal Test N/a 11/24/23 21:34 A-a O2 Gradient 0.0 mmHg (5-10) L 11/24/23 21:34 Hematocrit 30.3 % (37-47) L 11/24/23 21:34 Hgb O2 Saturation 97.7 % (95-100) 11/24/23 21:34 Carboxyhemoglobin 0.6 %THgb (0.4-20.1) 11/24/23 21:34 Methemoglobin 1.1 % (0.4-1.5) 11/24/23 21:34 Total Hemoglobin 9.9 g/dL (12-16) L 11/24/23 21:34 Sodium 140.0 mmol/L (131-143) 11/24/23 21:34 Potassium 2.8 mmol/L (3.5-5.0) L 11/24/23 21:34 Glucose 80.0 mg/dL (70-115) 11/24/23 21:34 Ionized Calcium 1.2 mmol/L (1.1-1.4) 11/24/23 21:34 O2 Delivery Device Nc 11/24/23 21:34 O2 Liters/Min 3.0 % 11/24/23 21:34 Administrator Health Care Facility ID [email or web address] 11/24/23 21:34 Sodium 138 mmol/L (136-145) 11/24/23 20:12 Potassium 3.0 mmol/L (3.5-5.1) L 11/24/23 20:12 Chloride 95 mmol/L (98-107) L 11/24/23 20:12 Carbon Dioxide 36 mmol/L (22-29) H 11/24/23 20:12 Anion Gap 10.0 (5-19) 11/24/23 20:12 BUN 17 mg/dL (8-23) 11/24/23 20:12 Creatinine 0.6 mg/dL (0.5-0.9) 11/24/23 20:12 GFR Calculation Not Reportable 11/24/23 20:12 Glucose 105 mg/dL (65-115) 11/24/23 20:12 Calculated Osmolality 288 mOsm/kg (285-295) 11/24/23 20:12 Lactic Acid 1.8 mmol/L (0.5-2.2) 11/24/23 20:12 Calcium 8.5 mg/dL (8.5-10.5) 11/24/23 20:12 Phosphorus 1.7 mg/dL (2.5-4.5) L 11/24/23 20:12 Magnesium 1.7 mg/dL (1.7-2.3) 11/24/23 20:12 Total Bilirubin 0.2 mg/dL (0.15-1.2) 11/24/23 20:12 AST 11 U/L (0-32) 11/24/23 20:12 ALT 6 U/L (0-33) 11/24/23 20:12 Alkaline Phosphatase 74 U/L (35-105) 11/24/23 20:12 Creatine Kinase 35 U/L (26-192) 11/24/23 20:12 Troponin T Baseline 26 ng/L (0-10) H 11/24/23 20:12 Troponin T 120 Minute 27.52 ng/L (0-10) H 11/24/23 22:01 Delta Troponin T 1.52 ABS# (0-10) 11/24/23 22:01 C-Reactive Protein 6.0 mg/L (0.0-4.9) H 11/24/23 20:12 Total Protein 5.2 g/dL (6.6-8.7) L 11/24/23 20:12 Albumin 3.4 g/dL (3.5-5.2) L 11/24/23 20:12 Globulin 1.8 g/dL (1.3-4.6) 11/24/23 20:12 Procalcitonin 0.20 ng/mL (0-0.5) 11/24/23 20:12 Urine Color Yellow (Yellow) 11/24/23 19:13 Urine Appearance Clear (CLEAR) 11/24/23 19:13 Urine pH 7.0 (5-7) 11/24/23 19:13 Ur Specific [place] 1.018 (1.005-1.030) 11/24/23 19:13 Urine Protein 2+ (Negative) A 11/24/23 19:13 Urine Glucose (UA) 2+ (Normal) H 11/24/23 19:13 Urine Ketones 1+ (Negative) H 11/24/23 19:13 Urine Blood Trace (Negative) A 11/24/23 19:13 Urine Nitrate Negative (Negative) 11/24/23 19:13 Urine Bilirubin Negative (Negative) 11/24/23 19:13 Urine Urobilinogen 1.0 mg/dL (Negative) 11/24/23 19:13 Ur Leukocyte Esterase Negative (Negative) 11/24/23 19:13 Urine RBC 3-5 /hpf (0-2) 11/24/23 19:13 Urine WBC 0-5 /hpf (0-5) 11/24/23 19:13 Ur Squamous Epith Cells 0-5 /hpf (0-5) 11/24/23 19:13 Amorphous Sediment Not Reportable 11/24/23 19:13 Urine Bacteria None seen /hpf (NONE) 11/24/23 19:13 Hyaline Casts 14.87 /lpf 11/24/23 19:13 All radiology interpretation(s) finalized by discharge Discharge Plan Discharge Patient Disposition: Placed in Observation Clinical Impression: Encephalopathy, hypertensive, Acute hypokalemia, Hypophosphatemia Coding Level of Care Code ED Medical Transcriptionist for Kristel Muse
--- NOTE | 2023-11-24 18:31 | ECG_ITS ---
[facility] Test Date: 2023-11-24 Pat Name: Karin Garcia Department: Room: Gender: Female Project Financial Analyst: : 1950 Requested By: Clyde Bustillos Order Number: [id number] Reading MD: TONEY THURMAN Measurements Intervals [place] Rate: 87 P: 85 ID: 120 QRS: 75 QRSD: 81 T: 72 QT: 342 QTc: 412 Interpretive Statements SINUS RHYTHM ST DEVIATION AND MODERATE T-WAVE ABNORMALITY, CONSIDER ANTEROLATERAL ISCHEMIA [-0.1+ mV T-WAVE IN V3/V4] Compared to ECG 09/23/2023 20:31:46 T-wave abnormality now present Possible ischemia now present Electronically Signed On 11-24-2023 20:03:31 CDT by TONEY THURMAN [id number]
[2023-11-24] MEDS: sodium chloride 0.9% 1,000 ML 999 ML IV (18:48)
[2023-11-24] MEDS: cloNIDine 0.1 mg Tablet 0.2 MG PO (18:48)
[2023-11-24] MEDS: ipratropium-albuterol 3 mL Neb INHALATION (18:48)
[2023-11-24 19:24] LABS: Bilirubin Urine Negative (Negative); Blood Urine Trace (Negative); Glucose Urine UA 2+ (Normal); Ketones Urine 1+ (Negative); Leukocyte Esterase Urine Negative (Negative); Nitrate Urine Negative (Negative); Protein Urine 2+ (Negative); Specific Gravity, Urine 1.018 (1.005-1.030); Urine Appearance Clear (CLEAR); Urine Color Yellow (Yellow)
[2023-11-24 19:27] LABS: Add Urine Microscopic? YES; Bacteria Urine None Seen /hpf; Hyaline Casts Urine 14.87 /lpf; Squamous Epithelial Cell Urine 0-5 /hpf (0-5); WBC Urine 0-5 /hpf (0-5)
[2023-11-24 19:58] LABS: UA Slide Review UA Slide Review Perf
[2023-11-24 19:59] LABS: Add Urine Culture? No
[2023-11-24 20:32] LABS: Basophils % 0.4 %; Eosinophils % 0.1 %; Hematocrit 33.7 % (36-47); Lymphocytes # 0.8 10^3/uL (0.8-4.8); Lymphocytes % 11.6 %; Mean Corpuscular HGB Conc 30.3 g/dL (30-55); Mean Corpuscular Hemoglobin 28.5 pg (27-33); Mean Corpuscular Volume 94.1 fl (85-98); Monocytes # 0.5 10^3/uL (0.2-0.9); Monocytes % 7.2 %; Neutrophils # 5.47 10^3/uL (1.8-7.7); Neutrophils % 80.4 %; Nucleated Red Blood Cells % 0 %; Platelet Count 270 10^3/cmm (157-399); Red Blood Count 3.58 10^6/uL (3.85-5.65); Red Cell Distribution Width 12.4 % (12.1-15.1); White Blood Count 6.81 10^3/uL (3.29-11.43)
[2023-11-24 20:51] LABS: Troponin(5th) Baseline 26 ng/L (0-10)
[2023-11-24 20:53] LABS: Alanine Aminotransferase 6 U/L (0-33); Albumin Level 3.4 g/dL (3.5-5.2); Alkaline Phosphatase 74 U/L (35-105); Aspartate Amino Transferase 11 U/L (0-32); Blood Urea Nitrogen 17 mg/dL (8-23); Calcium 8.5 mg/dL (8.5-10.5); Carbon Dioxide 36 mmol/L (22-29); Chloride 95 mmol/L (98-107); Creatinine Clr Calc Pharmacy 40.3623; Globulin 1.8 g/dL (1.3-4.6); Glucose 105 mg/dL (65-115); Magnesium 1.7 mg/dL (1.7-2.3); Osmolality Calculated 288 mOsm/kg (285-295); Phosphorus 1.7 mg/dL (2.5-4.5); Sodium 138 mmol/L (136-145); Total Bilirubin 0.2 mg/dL (0.15-1.2); Total Protein 5.2 g/dL (6.6-8.7)
[2023-11-24 20:55] LABS: Lactic Sepsis W/Reflex 1.8 mmol/L (0.5-2.2)
--- NOTE | 2023-11-24 21:02 | XRR_ITS ---
PROCEDURE INFORMATION: Exam: XR Chest Exam date and time: 11/24/2023 9:31 PM Age: 73 years old Clinical indication: Shortness of breath; Additional info: Rhonchi dyspnea TECHNIQUE: Imaging protocol: Radiologic exam of the chest. Views: 1 view. COMPARISON: CT angio chest PE protcl [id number] 09/23/2023 3:21 PM FINDINGS: Lungs: Hyperinflated lungs. Bilateral apical predominant emphysematous changes. Bilateral apical fibrotic changes. No focal consolidation. Pleural spaces: Unremarkable. No pleural effusion. No pneumothorax. Heart/Mediastinum: Unremarkable. No cardiomegaly. Vasculature: Aortic arch calcifications. Bones/joints: Mild degenerative disease of bilateral acromioclavicular and bilateral glenohumeral joints. XR/XR chest 1V portable [id number] IMPRESSION: No acute cardiopulmonary process.
--- NOTE | 2023-11-24 21:07 | ECG_ITS ---
[facility] Test Date: 2023-11-24 Pat Name: Karin Garcia Department: Room: Gender: Female Scrap Drop Operator: : 1950 Requested By: Clyde Bustillos Order Number: [id number] Jesse MD: Jemima Abrams M.D. Measurements Intervals [place] Rate: 66 P: 83 ND: 147 QRS: 85 QRSD: 86 T: 91 QT: 381 QTc: 401 Interpretive Statements SINUS RHYTHM NONSPECIFIC T-WAVE ABNORMALITY Compared to ECG 11/24/2023 18:31:39 Possible ischemia no longer present T-wave abnormality still present- Prominent U waves in the precordial leads Electronically Signed On 11-26-2023 22:36:06 CDT by Jemima Abrams M.D. [id number]
[2023-11-24] MEDS: potassium chloride ER 20 mEq Tablet 40 MEQ PO (21:24)
[2023-11-24 21:28] LABS: Creatine Phosphokinase 35 U/L (26-192)
[2023-11-24 21:45] LABS: ABG PCO2 66.8 mmHg (35-45); ABG PH Result 7.37 (7.35-7.45); Arterial Blood Gas Hematocrit 30.3 % (37-47); Base Excess ABG 11.1 mmol/L (-2.0-2.0); Blood Gas Sample Site Brachial, right; Blood Gas Sample Type Arterial; Carboxyhemoglobin 0.6 %THgb (0.4-20.1); HCO3 ABG 38.4 mmol/L (22-26); HGB O2 Sat 97.7 % (95-100); Ionized Calcium Level - ABG 1.2 mmol/L (1.1-1.4); Methemoglobin 1.1 % (0.4-1.5); Oxygen Device NC; Oxygen Saturation ABG > 99.1; Potassium Level - ABG 2.8 mmol/L (3.5-5.0); Total Hemoglobin 9.9 g/dL (12-16)
[2023-11-24 22:27] LABS: Troponin 5 2HR 27.52 ng/L (0-10); Troponin 5 2HR Delta 1.52 ABS# (0-10)
[2023-11-24] MEDS: sodium chloride 0.9% 1,000 ML 125 ML IV (23:07)
[2023-11-24 23:15] LABS: Thyroid Stimulating Hormone 1.09 uIU/mL (0.27-4.20)
--- NOTE | 2023-11-24 23:24 | PC.NURSE ---
Addendum entered by Natali Haro RN 11/24/23 23:39: Also unable to complete med rec, as patient is not able to answer questions appropriately due to AMS. No family is at bedside. Addendum entered by Natali Haro RN 11/24/23 23:39: Unable to complete social drivers of health as well. Addendum entered by Natali Haro RN 11/24/23 23:38: Unable to complete admission assessment, immunization assessment, suicide risk assessment, or admit teaching on worklist due to this. Original Note: Patient is able to tell me her name. She is not able to tell me her age, her birthday, where she is at, or the year.
[2023-11-25] VITALS (13 sets, daily range): BP systolic 97–181; BP diastolic 44–88; PULSE 60–101; RESP 13–19; TEMP 36.6–37; O2SAT 90–100
--- NOTE | 2023-11-25 00:18 | PM.HP ---
Providers/Chief Complaint Admitting Physician: Liban Bar Primary Care Provider: Ema Jansen, TERRELL Chief Complaint: Dizzy, Not taken care of. History of Present Illness 73-year-old lady with history of COPD, hypertension, HLD, GERD, other medical problems has been complaining of dizziness, reported running into rangel at home, was found by EMS at home in poor condition reported sitting in feces and dirt, home reportedly in disrepair, reporting she does not know the last time she ate or drank. On presentation hypertensive 195/101. With rhonchi, crackles on exam, 4 L of oxygen which is reported to be her baseline. She was able to answer some orientation questions but not others, was not able to provide history, her medical conditions or medications. She was alert earlier but during my evaluation she is sleeping, wakes up briefly, is not able to provide history, gives only very basic review of systems, denies pain or discomfort. Review of Systems General: Reports: ROS unobtainable due to mental status Medications/Allergies Home Medications Medication Instructions Recorded Confirmed Last Taken Type oxygen concentrator with portable #1 ea 02/04/21 09/30/23 Unknown Rx oxygen atorvastatin 20 mg tablet 20 mg PO DAILY #30 tabs 09/01/23 09/30/23 09/23/23 Rx carvedilol 6.25 mg tablet 6.25 mg PO BID 30 days #60 tabs 09/01/23 09/30/23 09/23/23 Rx fluticasone furoate 100 1 inh inhalation Q24H #30 ea 09/01/23 09/30/23 09/23/23 Rx mcg/actuation blister powder for inhalation (Arnuity Ellipta) ipratropium 0.5 mg-albuterol 3 mg 3 ml inhalation Q4H PRN wheezing 09/01/23 09/30/23 Unknown Rx (2.5 mg base)/3 mL nebulization #180 mL soln lisinopril 40 mg tablet 40 mg PO DAILY #30 tabs 09/01/23 09/30/23 09/23/23 Rx magnesium oxide 400 mg PO BID #180 tabs 09/01/23 09/30/23 Unknown Rx sucralfate 1 gram tablet 1 g PO BID 30 days #60 tabs 09/01/23 09/30/2324 Rx tiotropium bromide 18 mcg capsule 1 cap inhalation DAILY #30 09/01/23 09/30/23 09/23/23 Rx with inhalation device (Spiriva inhalations with HandiHaler) trazodone 50 mg tablet 50 mg PO BEDTIME #30 tabs 09/01/23 09/30/23 09/22/23 Rx venlafaxine 150 mg 150 mg PO DAILY #30 caps 09/01/23 09/30/23 09/23/23 Rx capsule,extended release 24 hr Lactobacillus rhamnosus GG 20 20 cell PO BID 09/23/23 09/30/23 Unknown History billion cell capsule (Probiotic Digestive Care) prednisone 10 mg tablet See Rx Instructions .Route 09/27/23 09/30/23 Unknown Rx .COMPLEX #53 tabs glycerin (adult) (Fleet Glycerin 1 supp [place] DAILY PRN constipation 09/30/23 09/30/23 Unknown Rx (Adult) rectal suppository) #12 ea magnesium hydroxide 400 mg/5 mL 30 ml PO BID PRN constipation #355 09/30/23 09/30/23 Unknown Rx oral suspension (Milk of Magnesia) mL nystatin 100,000 unit/mL oral 5 ml PO TID #200 mL 09/30/23 09/30/23 Unknown Rx suspension Allergies Allergy/AdvReac Type Severity Reaction Status Date / Time No Known Allergies Allergy Unverified 09/30/23 11:34 PFSH Acute PFSH: Medical History Supplemental oxygen dependent Personal history of nicotine dependence Generalized anxiety disorder Allergic rhinitis due to pollen Gastro-esophageal reflux disease without esophagitis Vitamin D insufficiency History of TB (tuberculosis) Neuropathy Centrilobular emphysema Mixed hyperlipidemia Hypertension Surgical History History of arthroplasty of left hip 10/28/21 [facility] Hx of total hysterectomy with BSO History of section History of colonoscopy 2016 Family History Other Bleeding disorder Cancer Diabetes Stroke Thyroid disease Social History Smoking and tobacco/nicotine status: former use of tobacco/nicotine Second hand smoke exposure: Yes Alcohol intake: never Substance/Drug Use: unknown Adopted: No Caregiver/support person: No Lives independently: Yes Household members: family Housing: House Marital status: Number of children: 4 service: No Current occupational status: retired Current occupational exposures/hazards: No Do you think of yourself as: Straight/Heterosexual Current gender identity: Female Vitals/I&O/Wt Last Vital Signs Temp 97.4 F L 11/24/23 17:47 Pulse 71 11/24/23 23:08 Resp 22 H 11/24/23 23:08 BP 106/49 11/24/23 23:08 Pulse Ox 100 11/24/23 23:08 O2 Del Method Nasal Cannula 11/24/23 23:08 O2 Flow Rate 4 11/24/23 23:08 11/24/23 11/24/23 11/25/23 14:59 22:59 06:59 Intake Total 1000 / 1000 Balance 1000 / 1000 Weight last 48 hrs Weight 35.108 kg Weight 40.823 kg Physical Exam Const: ORIENTATION/CONSCIOUSNESS: not awake HENMT: COMMON NORMALS: oropharynx normal Eye: OTHER: Pupils equal. Neck/C-Spine: COMMON NORMALS: no JVD Resp: AUSCULTATION: rhonchi OTHER: Cough. Cardio: COMMON NORMALS: no JVD, regular rhythm, S1 normal heart sound present, S2 normal heart sound present and No murmurs present (Cardio) RHYTHM: regular rhythm HEART SOUNDS: S1 normal heart sound present and S2 normal heart sound present GI: COMMON NORMALS: Normal to inspection, nondistended, normoactive bowel sounds present, Soft to palpation and non-tender PALPATION: Yes Soft to palpation Extremity: COMMON NORMALS: no joint enlargement and no pedal edema NARRATIVE EXTREMITY EXAM: Sarcopenia Neuro: COMMON NORMALS: moves all extremities Skin: COMMON NORMALS: no rashes or lesions noted GENERAL SKIN EXAM: no rashes or lesions noted Data 11/24/23 20:12 11/24/23 20:12 A&P Assessment and plan (1) Acute encephalopathy: Acute encephalopathy possibly related to hypertension with hypertensive urgency, received a dose of clonidine, blood pressures come down from 195/101, currently 106/49. Hold off additional antihypertensives. Monitor blood pressures. Continue gentle IV hydration. Reviewed CBC, CMP, CT head, ER provider note, discussed with ER provider. Replenish phosphorus, magnesium, potassium. TSH reviewed normal. Treat bronchitis. UA not suggestive of UTI. Chest x-ray not suggestive of pneumonia or other acute process. ABG reviewed, hypercapnia but compensated. Reorient. Hold venlafaxine, trazodone for now. (2) Hypertension: Hypertensive urgency with suspected encephalopathy. Received clonidine. Monitor heart rates. Reassess blood pressure. Hold off additional antihypertensives for now as blood pressure has come down to 106/49. Continue gentle IV hydration. Qualifiers: Hypertension type: essential hypertension Qualified Code(s): I10 - Essential (primary) hypertension (3) Insufficient home care support: When picked up by EMS at home found sitting in her own feces, dirt, home found to be in disrepair. Concern for esophageal support, possible self- or other neglect. Hotline reported to be contacted. Appears to have acute encephalopathy. Normally lives with her son. Case management consultation. (4) Failure to thrive: Moderate to severe malnutrition. Cardiac diet as tolerating. Add nutritional supplements with Ensure plus. (5) Hypophosphatemia: Replace phosphorus. Recheck levels. (6) Acute hypokalemia: Received potassium replacement. Replace magnesium. Recheck chemistry, magnesium. Plan Hypomagnesemia: Replace magnesium IV. Recheck magnesium level. COPD: With mild to moderate exacerbation, rhonchi. She is having cough. Appears to be on baseline oxygen 4 L. Hypercapnia on ABG but compensated. Will give DuoNebs scheduled and as needed. Attestations Medical Necessity Statement*: Place in observation for additional assessment management of acute encephalopathy, uncontrolled hypertension with hypertensive urgency, multiple electrolyte deficiency, failure to thrive, concern for possible neglect, COPD with exacerbation. Coding Level of Care Code Acute Code for [facility] Fwd Diagnoses Acute encephalopathy G93.40 Essential hypertension I10 Hypertension type: essential hypertension Insufficient home care support Z74.2 Failure to thrive Hypophosphatemia E83.39 Acute hypokalemia E87.6
[2023-11-25] MEDS: magnesium sulfate premix 2 GM/50 ML PIGGYBACK IV (02:01)
[2023-11-25] MEDS: ipratropium-albuterol 3 mL Neb INHALATION ×4 (03:07→20:58)
[2023-11-25 03:36] LABS: Troponin 5 6HR 26.75 ng/L (0-10); Troponin 5 6HR Delta 0.75 ng/L (0-12)
[2023-11-25] MEDS: enoxaparin 30 mg/0.3 mL Syringe SUBCUT (05:06)
[2023-11-25] MEDS: phosphorus 250 mg Tablet PO ×2 (09:59→17:12)
--- NOTE | 2023-11-25 10:04 | PC.CHAP ---
Pastoral Care Encounter/Spiritual Assessment Type of Contact [] Declined waste disposal leakage tester visit [] Patient/Family/Request visit [] Outpatient visit [] Follow-up visit [] Physician referral [] Code/Alert [] Routine visit [] Staff referral [] Actively dying [x] Patient sleeping [] Family support [] [] Out of room [] Palliative care [] [] Receiving care in room [] Pre-surgical visit [] Trauma [] Long length of stay [] ICU visit [] Other: Relational/Emotional Strength [] Patient feels connected with others/family/visitors/staff [] Distress [] Loneliness/isolation [] Abandonment Spirituality of Patient [] Person of Kera [] Attends Restorationist of their Kera [] Believes in Prayer [] Reads Bible or Mosque materials [] There are Spiritual issues to be addressed Team Physician Interventions [] Prayer [] Active listening [] Non-anxious presence [] Spiritual/emotional support [] Crisis/trauma care [] Spiritual counseling [] Bereavement support [] Provided bereavement packet [] Provided Bible/devotional materials [] Provided toy/stuffed animal, coloring book to patient or family member [] Provided Communion [] Anointing/[place] [] Salvation [] Completed spiritual assessment [] Other: Impact on Illness or Injury [] Angry [] Fearful [] Anxious [] Often cries [] Exhaustion [] Unable to work [] Unable to attend religious [] Unable to walk/stand [] Unable to read [] Unable to drive [] Unable to eat/drink [] Unable to sleep [] Unable to be with family [] Patient intubated [] Other: Summary Time spent with patient
--- NOTE | 2023-11-25 11:51 | PC.OT ---
OT EVALUATION ATTEMPTED. DR ATTEMPTS TO AWAKEN PATIENT WITHOUT SUCCESS AND THERAPIST ATTEMPTS ALSO; PATIENT DOES NOT AWAKEN. WILL ATTEMPT EVALUATION AT A LATER TIME.
[2023-11-25] MEDS: sodium chloride 0.9% 1,000 ML 75 ML IV (11:52)
--- NOTE | 2023-11-25 12:50 | PM.MISC ---
Miscellaneous Note Note: Seen this morning. Patient laying in bed. Does open her eyes to kill however is quite lethargic. Does carry a history of COPD. We will check ABG at this time and placed on BiPAP if needed. There were no morning labs on patient this morning. Will order CBC and BMP at this time. Blood pressure 97/44. Continue to hold home blood pressure medications at this time. Patient is on 2 L nasal cannula at this time. Continue DuoNebs Patient quite rhonchorous bilateral lung henry. Will place on Solu-Medrol.
[2023-11-25 13:20] LABS: ABG PH Result 7.44 (7.35-7.45); Arterial Blood Gas Hematocrit 28.2 % (37-47); Base Excess ABG 9.8 mmol/L (-2.0-2.0); Blood Gas Allen Test Pos; Blood Gas Sample Type Arterial; Carboxyhemoglobin 0.7 %THgb (0.4-20.1); HCO3 ABG 35.2 mmol/L (22-26); HGB O2 Sat 97.4 % (95-100); Ionized Calcium Level - ABG 1.2 mmol/L (1.1-1.4); Methemoglobin 1.2 % (0.4-1.5); Oxygen Saturation ABG > 99.1; Potassium Level - ABG 3.3 mmol/L (3.5-5.0); Total Hemoglobin 9.2 g/dL (12-16)
[2023-11-25 13:21] LABS: Alveolar-Arterial Oxygen Gradi 3.1 mmHg (5-10); Blood Gas Operator Identificat MONRO; Blood Gas Sample Site Radial, right; Oxygen Device NC; PO2 FiO2 Ratio Arterial Blood 403
[2023-11-25 13:43] LABS: Basophils % 0.6 %; Eosinophils # 0.1 10^3/uL (0.0-0.8); Eosinophils % 1.2 %; Hematocrit 28.1 % (36-47); Lymphocytes % 19.9 %; Mean Corpuscular HGB Conc 29.9 g/dL (30-55); Mean Corpuscular Hemoglobin 28.3 pg (27-33); Mean Corpuscular Volume 94.6 fl (85-98); Mean Platelet Volume 11.2 fL (7.4-10.4); Monocytes # 0.5 10^3/uL (0.2-0.9); Monocytes % 9.3 %; Neutrophils # 3.38 10^3/uL (1.8-7.7); Neutrophils % 68.8 %; Nucleated Red Blood Cells % 0 %; Platelet Count 230 10^3/cmm (157-399); Red Blood Count 2.97 10^6/uL (3.85-5.65); Red Cell Distribution Width 13.2 % (12.1-15.1); White Blood Count 4.92 10^3/uL (3.29-11.43)
[2023-11-25 13:59] LABS: Alanine Aminotransferase < 5 U/L (0-33); Albumin Level 2.9 g/dL (3.5-5.2); Alkaline Phosphatase 62 U/L (35-105); Anion Gap 8.3 (5-19); Aspartate Amino Transferase 11 U/L (0-32); Blood Urea Nitrogen 15 mg/dL (8-23); Carbon Dioxide 36 mmol/L (22-29); Chloride 102 mmol/L (98-107); Creatinine Clr Calc Pharmacy 34.5774; Globulin 1.8 g/dL (1.3-4.6); Glucose 125 mg/dL (65-115); Magnesium 2.4 mg/dL (1.7-2.3); Osmolality Calculated 298 mOsm/kg (285-295); Potassium 3.3 mmol/L (3.5-5.1); Sodium 143 mmol/L (136-145); Total Bilirubin 0.2 mg/dL (0.15-1.2); Total Protein 4.7 g/dL (6.6-8.7)
[2023-11-25] MEDS: methylPREDNISolone sod succ 40 mg/mL INJ IVP (14:26)
[2023-11-26] VITALS (41 sets, daily range): BP systolic 96–219; BP diastolic 59–103; PULSE 78–144; RESP 16–32; TEMP 36.3–37; O2SAT 94–100
[2023-11-26] MEDS: sodium chloride 0.9% 1,000 ML 75 ML IV (00:58)
[2023-11-26] MEDS: methylPREDNISolone sod succ 40 mg/mL INJ IVP ×3 (01:10→13:53)
[2023-11-26] MEDS: ipratropium-albuterol 3 mL Neb INHALATION ×4 (02:30→20:54)
[2023-11-26] MEDS: enoxaparin 30 mg/0.3 mL Syringe SUBCUT (05:42)
[2023-11-26 06:00] LABS: Basophils % 0.2 %; Hematocrit 27.1 % (36-47); Lymphocytes # 0.5 10^3/uL (0.8-4.8); Lymphocytes % 10.6 %; Mean Corpuscular HGB Conc 29.2 g/dL (30-55); Mean Corpuscular Hemoglobin 28.1 pg (27-33); Mean Corpuscular Volume 96.4 fl (85-98); Mean Platelet Volume 11.5 fL (7.4-10.4); Monocytes # 0.1 10^3/uL (0.2-0.9); Monocytes % 2.3 %; Neutrophils # 4.07 10^3/uL (1.8-7.7); Neutrophils % 86.3 %; Nucleated Red Blood Cells % 0 %; Platelet Count 203 10^3/cmm (157-399); Red Blood Count 2.81 10^6/uL (3.85-5.65); Red Cell Distribution Width 13.2 % (12.1-15.1); White Blood Count 4.72 10^3/uL (3.29-11.43)
[2023-11-26 06:20] LABS: Anion Gap 9.6 (5-19); Blood Urea Nitrogen 15 mg/dL (8-23); Carbon Dioxide 31 mmol/L (22-29); Chloride 105 mmol/L (98-107); Creatinine Clr Calc Pharmacy 36.2364; Glucose 118 mg/dL (65-115); Magnesium 2.1 mg/dL (1.7-2.3); Osmolality Calculated 296 mOsm/kg (285-295); Phosphorus 2.9 mg/dL (2.5-4.5); Potassium 3.6 mmol/L (3.5-5.1); Sodium 142 mmol/L (136-145)
[2023-11-26] MEDS: phosphorus 250 mg Tablet PO ×2 (08:12→17:20)
--- NOTE | 2023-11-26 10:23 | PC.CHAP ---
Pastoral Care Encounter/Spiritual Assessment Type of Contact [] Declined unit clerk visit [] Patient/Family/Request visit [] Outpatient visit [] Follow-up visit [] Physician referral [] Code/Alert [x] Routine visit [] Staff referral [] Actively dying [x] Patient sleeping [] Family support [] [] Out of room [] Palliative care [] [] Receiving care in room [] Pre-surgical visit [] Trauma [] Long length of stay [] ICU visit [] Other: Relational/Emotional Strength [] Patient feels connected with others/family/visitors/staff [] Distress [] Loneliness/isolation [] Abandonment Spirituality of Patient [] Person of Kera [] Attends Judaism of their Kera [] Believes in Prayer [] Reads Bible or Alevism materials [] There are Spiritual issues to be addressed Cartography Professor Interventions [] Prayer [] Active listening [] Non-anxious presence [] Spiritual/emotional support [] Crisis/trauma care [] Spiritual counseling [] Bereavement support [] Provided bereavement packet [] Provided Bible/devotional materials [] Provided toy/stuffed animal, coloring book to patient or family member [] Provided Communion [] Anointing/[place] [] Salvation [] Completed spiritual assessment [] Other: Impact on Illness or Injury [] Angry [] Fearful [] Anxious [] Often cries [] Exhaustion [] Unable to work [] Unable to attend samaritan [] Unable to walk/stand [] Unable to read [] Unable to drive [] Unable to eat/drink [] Unable to sleep [] Unable to be with family [] Patient intubated [] Other: Summary Time spent with patient
--- NOTE | 2023-11-26 13:45 | P.PN_ITS ---
Subjective 2 Subjective: Seen this morning. Patient states she does not want to go to a skilled nursing. Discussed with her regarding in the condition she was found in. She states she fell and remember soiling herself. She asked her son to clean it up however she also states that she said this has never happened before. She says she has not been sick and has been doing okay. She says she was told she has pneumonia however upon looking through the chart it seems like this was back in September. She is somewhat of a poor historian. At this time denies any chest pain shortness of breath nausea vomiting diarrhea constipation abdominal pain or any other issues. Later on around noon patient's blood pressure was 212/115. Subsequently patient complained of chest pain. Trope series and EKGs has been ordered. IV hydralazine has been ordered as well. Discussed with RN. Patient is on baseline nasal cannula oxygen at this time. Vitals/I&O/Wt Last Vital Signs Temp 98.1 F 11/26/23 12:00 Pulse 115 H 11/26/23 12:00 Resp 18 11/26/23 12:00 BP 219/102 11/26/23 12:00 Pulse Ox 100 11/26/23 12:00 O2 Del Method Nasal Cannula 11/26/23 12:00 O2 Flow Rate 2 11/26/23 12:00 11/25/23 11/26/23 11/26/23 22:59 06:59 14:59 Intake Total 480 / 1532.5 1222.5 / 2755.0 Output Total 200 / 200 200 / 400 300 / 300 Balance 280 / 1332.5 1022.5 / 2355.0 -300 / -300 Weight last 48 hrs Weight 36.65 kg Weight 36.65 kg Weight 34.972 kg Weight 35.108 kg Weight 40.823 kg Physical Exam 2 Const: ORIENTATION/CONSCIOUSNESS: not awake HENMT: COMMON NORMALS: oropharynx normal Eye: OTHER: Pupils equal. Neck/C-Spine: COMMON NORMALS: no JVD Resp: AUSCULTATION: rhonchi OTHER: Cough. Cardio: COMMON NORMALS: no JVD, regular rhythm, S1 normal heart sound present, S2 normal heart sound present and No murmurs present (Cardio) RHYTHM: regular rhythm HEART SOUNDS: S1 normal heart sound present and S2 normal heart sound present GI: COMMON NORMALS: Normal to inspection, nondistended, normoactive bowel sounds present, Soft to palpation and non-tender PALPATION: Yes Soft to palpation Extremity: COMMON NORMALS: no joint enlargement and no pedal edema N ARRATIVE EXTREMITY EXAM: Sarcopenia Neuro: COMMON NORMALS: moves all extremities Skin: COMMON NORMALS: no rashes or lesions noted GENERAL SKIN EXAM: no rashes or lesions noted Data 11/26/23 05:24 11/26/23 05:24 A&P Assessment and plan (1) Generalized anxiety disorder: (2) Hypertension: Qualifiers: Hypertension type: essential hypertension Qualified Code(s): I10 - Essential (primary) hypertension (3) Mixed hyperlipidemia: (4) Failure to thrive: (5) Hypophosphatemia: (6) Acute hypokalemia: (7) Encephalopathy, hypertensive: (8) Chest pain: Plan #Acute encephalopathy present on admission most likely secondary to hypertensive urgency #Hypertensive urgency #COPD exacerbation #Hypertension #Failure to thrive #Hypokalemia present on admission #Hypophosphatemia ? Phosphate, potassium repleted, magnesium repleted ? Patient has been hotlined. Found at home sitting in her own feces start in distress. Normally lives with her son. ? Patient has capacity and would like to go back home. ? Currently complaining of chest pain most likely secondary to acute hypertensive episode ? Hydralazine 10 IV x 1 ordered. ? Home antihypertensives continued ? Will treat for COPD exacerbation. Solu-Medrol 40 daily ? Doxycycline 100 twice daily ? Check troponins, serial EKGs ? Dietitian consulted Full code Due to prophylaxis: Heparin subcu twice daily Attestations 2 Medical Necessity Statement*: Continue to hospitalize for hypertensive urgency, chest pain Diagnoses Generalized anxiety disorder F41.1 Essential hypertension I10 Hypertension type: essential hypertension Mixed hyperlipidemia E78.2 Failure to thrive Hypophosphatemia E83.39 Acute hypokalemia E87.6 Encephalopathy, hypertensive I67.4 Chest pain R07.9
[2023-11-26] MEDS: hyDRALAzine 20 mg/mL INJ 1 mL 10 MG IVP (13:54)
--- NOTE | 2023-11-26 14:16 | ECG_ITS ---
[facility] Test Date: 2023-11-26 Pat Name: Karin Garcia Department: Room: 259 Gender: Female Head Of Sales: : 1950 Requested By: Pam Aguiar Order Number: [id number] Jesse MD: Jemima Abrams M.D. Measurements Intervals [place] Rate: 114 P: 80 MD: 177 QRS: 74 QRSD: 77 T: 51 QT: 246 QTc: 339 Interpretive Statements SINUS TACHYCARDIA WITH FREQUENT SUPRAVENTRICULAR PREMATURE COMPLEXES NONSPECIFIC ST & T-WAVE ABNORMALITY ABNORMAL RHYTHM ECG Compared to ECG 11/24/2023 21:07:55 Sinus rhythm no longer present T-wave abnormality still present Electronically Signed On 11-26-2023 22:30:53 CDT by Jemima Abrams M.D. [id number]
[2023-11-26 14:25] LABS: Troponin(5th) Baseline 35 ng/L (0-10)
[2023-11-26] MEDS: nicardipine 20 MG/200 ML PREMIX 50 MG IV (15:24)
--- NOTE | 2023-11-26 15:55 | ECG_ITS ---
[facility] Date: 2023-11-26 Pat Name: Karin Garcia Department: Room: [facility] Gender: Female Accounting Professor: : 1950 Requested By: Pam Aguiar Order Number: [id number] Jesse MD: Jemima Abrams M.D. Measurements Intervals [place] Rate: 125 P: 84 NC: 134 QRS: 73 QRSD: 97 T: 63 QT: 358 QTc: 516 Interpretive Statements SINUS TACHYCARDIA WITH FREQUENT SUPRAVENTRICULAR PREMATURE COMPLEXES NONSPECIFIC ST & T-WAVE ABNORMALITY ABNORMAL RHYTHM ECG Compared to ECG 11/26/2023 14:16:26 No significant changes Electronically Signed On 11-26-2023 22:46:41 CDT by Jemima Abrams M.D. [id number]
[2023-11-26] MEDS: metoprolol tartrate 1 mg/1 mL SDV 5 mL 5 MG IVP (16:04)
[2023-11-26] MEDS: sodium chloride 0.9% 250 ML IV (16:05)
--- NOTE | 2023-11-26 16:23 | PC.NURSE ---
Patient's heart rate was 160, Doctor Stefania was called and she ordered for a Vargas to be inserted and a 5 mg IV push of metroprolol X1 to be given.
[2023-11-26 17:01] LABS: Troponin 5 2HR 40.68 ng/L (0-10); Troponin 5 2HR Delta 5.68 ABS# (0-10)
[2023-11-26] MEDS: carvedilol 6.25 mg Tablet PO (17:20)
[2023-11-26] MEDS: magnesium oxide 400 mg tablet PO (17:20)
[2023-11-26] MEDS: sucralfate 1 gm Tablet PO (17:20)
[2023-11-26] MEDS: doxycycline 100 mg Tablet PO (17:20)
[2023-11-26] MEDS: trazodone 50 mg Tablet PO (20:01)
[2023-11-26] MEDS: nicardipine 20 MG/200 ML PREMIX 30 MG IV (20:01)
[2023-11-26 20:21] LABS: Troponin 5 6HR 42.33 ng/L (0-10); Troponin 5 6HR Delta 7.33 ng/L (0-12)
--- NOTE | 2023-11-26 21:39 | ECG_ITS ---
[facility] Date: 2023-11[facility]26 Pat Name: Karin Garcia Department: Room: [facility] Gender: Female Eye Care Professional: : 1950 Requested By: Pam Aguiar Order Number: [id number] Jesse MD: Jemima Abrams M.D. Measurements Intervals [place] Rate: 108 P: 85 [place]: 108 QRS: 78 QRSD: 86 T: 69 QT: 350 QTc: 470 Interpretive Statements SINUS TACHYCARDIA WITH SHORT WA INTERVAL NONSPECIFIC ST & T-WAVE ABNORMALITY ABNORMAL RHYTHM ECG Compared to ECG 11/26/2023 15:55:01 Short [place] interval now present T-wave abnormality still present Electronically Signed On 11-26-2023 22:49:54 CDT by Jemima Abrams M.D. [id number]
[2023-11-27] VITALS (24 sets, daily range): BP systolic 93–170; BP diastolic 46–96; PULSE 57–115; RESP 14–30; TEMP 36.6–36.8; O2SAT 60–100
[2023-11-27] MEDS: ipratropium-albuterol 3 mL Neb INHALATION ×4 (03:25→20:56)
[2023-11-27 05:17] LABS: Basophils % 0.1 %; Hematocrit 36.7 % (36-47); Mean Corpuscular Hemoglobin 28.1 pg (27-33); Mean Corpuscular Volume 93.9 fl (85-98); Mean Platelet Volume 11.5 fL (7.4-10.4); Monocytes # 0.7 10^3/uL (0.2-0.9); Monocytes % 6.6 %; Neutrophils # 8.94 10^3/uL (1.8-7.7); Neutrophils % 84.1 %; Nucleated Red Blood Cells % 0 %; Platelet Count 290 10^3/cmm (157-399); Red Blood Count 3.91 10^6/uL (3.85-5.65); Red Cell Distribution Width 13.5 % (12.1-15.1); White Blood Count 10.63 10^3/uL (3.29-11.43)
[2023-11-27 05:39] LABS: Blood Urea Nitrogen 17 mg/dL (8-23); Calcium 9.4 mg/dL (8.5-10.5); Carbon Dioxide 34 mmol/L (22-29); Chloride 99 mmol/L (98-107); Creatinine Clr Calc Pharmacy 36.2364; Glucose 142 mg/dL (65-115); Osmolality Calculated 296 mOsm/kg (285-295); Phosphorus 2.4 mg/dL (2.5-4.5); Sodium 141 mmol/L (136-145)
[2023-11-27 05:41] LABS: Anion Gap 11.6 (5-19); Potassium 3.6 mmol/L (3.5-5.1)
[2023-11-27] MEDS: magnesium oxide 400 mg tablet PO ×2 (08:08→16:58)
[2023-11-27] MEDS: venlafaxine ER (24HR) 150 mg Capsule PO (08:09)
[2023-11-27] MEDS: doxycycline 100 mg Tablet PO ×2 (08:09→16:58)
[2023-11-27] MEDS: sucralfate 1 gm Tablet PO ×2 (08:09→16:58)
[2023-11-27] MEDS: atorvastatin 40 mg Tablet PO (08:09)
[2023-11-27] MEDS: carvedilol 6.25 mg Tablet PO ×2 (08:09→16:58)
[2023-11-27] MEDS: lisinopril 20 mg Tablet 40 MG PO (08:09)
[2023-11-27] MEDS: ALPRAZolam 0.5 mg Tablet 0.25 MG PO ×2 (12:41→20:41)
[2023-11-27] MEDS: acetaminophen 325 mg Tablet 650 MG PO (13:27)
[2023-11-27] MEDS: methylPREDNISolone sod succ 40 mg/mL INJ IVP (13:28)
--- NOTE | 2023-11-27 14:54 | XRR_ITS ---
PROCEDURE INFORMATION: Exam: XR Chest Exam date and time: 11/27/2023 5:27 PM Age: 73 years old Clinical indication: Patient HX: Cough; Possible aspiration TECHNIQUE: Imaging protocol: Radiologic exam of the chest. Views: 1 view. COMPARISON: CR (CHEST, ) 11/24/2023 9:31 PM FINDINGS: Lungs: Lungs are again noted to be hyperexpanded. A few stable linear densities are noted. No new abnormalities. Pleural spaces: Unremarkable. No pleural effusion. No pneumothorax. Heart/Mediastinum: Unremarkable. No cardiomegaly. Bones/joints: No acute findings. XR/XR chest 1V portable [id number] IMPRESSION: No acute findings. Suspected chronic obstructive pulmonary disease.
[2023-11-27] MEDS: OLANZapine 10 mg VIAL 2.5 MG IM (15:06)
[2023-11-27] MEDS: water for injection-sterile 10 ML (15:06)
--- NOTE | 2023-11-27 15:10 | P.PN_ITS ---
Subjective 2 Subjective: Seen this morning. Patient appears to be somewhat confused. She thinks she is in [facility]. She is questioning whether the fact this is the hospital. Yesterday patient blood pressure was elevated 200 range. She had to be transferred to ICU and placed on a nicardipine drip. That was turned off late last evening. Currently blood pressure better controlled. Home antihypertensives have been restarted. Vitals/I&O/Wt Last Vital Signs Temp 98.2 F 11/27/23 07:00 Pulse 94 11/27/23 14:35 Resp 22 H 11/27/23 13:53 BP 144/52 11/27/23 12:00 Pulse Ox 100 11/27/23 13:53 O2 Del Method Nasal Cannula 11/27/23 13:53 O2 Flow Rate 2 11/27/23 13:53 11/27/23 11/27/23 11/27/23 06:59 14:59 22:59 Intake Total 480 / 1050.833 300 / 300 Output Total 2300 / 3600 500 / 500 Balance -1820 / -2549.167 -200 / -200 Weight last 48 hrs Weight 33.248 kg Weight 33.248 kg Weight 36.65 kg Weight 36.65 kg Physical Exam 2 Const: ORIENTATION/CONSCIOUSNESS: not awake HENMT: COMMON NORMALS: oropharynx normal Eye: OTHER: Pupils equal. Neck/C-Spine: COMMON NORMALS: no JVD Resp: AUSCULTATION: rhonchi OTHER: Cough. Cardio: COMMON NORMALS: no JVD, regular rhythm, S1 normal heart sound present, S2 normal heart sound present and No murmurs present (Cardio) RHYTHM: regular rhythm HEART SOUNDS: S1 normal heart sound present and S2 normal heart sound present GI: COMMON NORMALS: Normal to inspection, nondistended, normoactive bowel sounds present, Soft to palpation and non-tender PALPATION: Yes Soft to palpation Extremity: COMMON NORMALS: no joint enlargement and no pedal edema N ARRATIVE EXTREMITY EXAM: Sarcopenia Neuro: COMMON NORMALS: moves all extremities Skin: COMMON NORMALS: no rashes or lesions noted GENERAL SKIN EXAM: no rashes or lesions noted Urinary Catheter Management: Vargas: Cath Placed During This Visit: yes Reason for Continuing Indwelling Catheter: Accurate Measurement of Urinary Output in Critically Ill Patients Urinary Catheter Date of Insertion: 11/26/23 Urinary Catheter Time of Insertion: 16:28 Data 11/27/23 04:37 11/27/23 04:37 A&P Assessment and plan (1) Generalized anxiety disorder: (2) Hypertension: Qualifiers: Hypertension type: essential hypertension Qualified Code(s): I10 - Essential (primary) hypertension (3) Mixed hyperlipidemia: (4) Failure to thrive: (5) Hypophosphatemia: (6) Acute hypokalemia: (7) Encephalopathy, hypertensive: (8) Chest pain: Plan #Acute encephalopathy present on admission most likely secondary to hypertensive urgency #Hypertensive urgency #Altered mental status #COPD exacerbation #Hypertension #Failure to thrive #Hypokalemia present on admission #Hypophosphatemia ? Phosphate, potassium repleted, magnesium repleted ? Patient has been hotlined. Found at home sitting in her own feces start in distress. Normally lives with her son. ? Patient has capacity and would like to go back home. ? Currently complaining of chest pain most likely secondary to acute hypertensive episode ? Hydralazine 10 IV x 1 ordered. ? Home antihypertensives continued ? Will treat for COPD exacerbation. Solu-Medrol 40 daily ? Doxycycline 100 twice daily ? Check troponins, serial EKGs ? Dietitian consulted Full code Due to prophylaxis: Heparin subcu twice daily 11/26 Zyprexa 2.5 IM to be given now. ? Xanax was given earlier however patient is quite agitated. ? Altered. Does not know where she is or what is going on. Alerted to self and date only. ? Check UA, urine culture ? Placed on Zosyn at this time. ? Will consider stress test on Wednesday. T wave inversions present on EKG however that was during her hypertensive urgency episode. Patient did complain of chest pain. Echo has been ordered. Attestations 2 Medical Necessity Statement*: Altered mental status, encephalopathic. Diagnoses Generalized anxiety disorder F41.1 Essential hypertension I10 Hypertension type: essential hypertension Mixed hyperlipidemia E78.2 Failure to thrive Hypophosphatemia E83.39 Acute hypokalemia E87.6 Encephalopathy, hypertensive I67.4 Chest pain R07.9
[2023-11-27 15:38] LABS: Bilirubin Urine Negative (Negative); Blood Urine 2+ (Negative); Glucose Urine UA Negative (Normal); Ketones Urine Negative (Negative); Leukocyte Esterase Urine 2+ (Negative); Nitrate Urine Negative (Negative); Protein Urine 3+ (Negative); Specific Gravity, Urine 1.021 (1.005-1.030); Urine Appearance Cloudy (CLEAR); Urine Color Yellow (Yellow); pH Urine 6.5 (5-7)
[2023-11-27] MEDS: piperacillin-tazobactam 3.375 GM in sodium chloride 0.9% (plus) 50 ML IV ×2 (15:38→22:07)
[2023-11-27 15:40] LABS: Hyaline Casts Urine 6.61 /lpf; WBC Urine >100 /hpf (0-5)
[2023-11-27 15:53] LABS: Bacteria Urine 2+ /hpf
[2023-11-27] MEDS: trazodone 50 mg Tablet PO (20:41)
[2023-11-28] VITALS (20 sets, daily range): BP systolic 109–162; BP diastolic 47–107; PULSE 51–92; RESP 14–31; TEMP 36.2–37.7; O2SAT 52–100
[2023-11-28] MEDS: ipratropium-albuterol 3 mL Neb INHALATION ×4 (03:31→21:52)
--- NOTE | 2023-11-28 05:45 | PC.NURSE ---
Patient has not voided this shift, bladder scanned, 350 ml urine noted. Placed patient on bedpan, unable to void, no acute distention noted. Will continue to monitor.
[2023-11-28] MEDS: enoxaparin 30 mg/0.3 mL Syringe SUBCUT (05:51)
[2023-11-28 06:10] LABS: Basophils % 0.1 %; Hematocrit 28.4 % (36-47); Lymphocytes % 8.4 %; Mean Corpuscular HGB Conc 29.9 g/dL (30-55); Mean Corpuscular Volume 96.9 fl (85-98); Mean Platelet Volume 11.5 fL (7.4-10.4); Monocytes # 0.7 10^3/uL (0.2-0.9); Monocytes % 5.8 %; Neutrophils # 9.71 10^3/uL (1.8-7.7); Neutrophils % 85.3 %; Nucleated Red Blood Cells % 0 %; Platelet Count 198 10^3/cmm (157-399); Red Blood Count 2.93 10^6/uL (3.85-5.65); Red Cell Distribution Width 13.6 % (12.1-15.1); White Blood Count 11.37 10^3/uL (3.29-11.43)
--- NOTE | 2023-11-28 06:11 | USCV_ITS ---
Karin Garcia Age: 73 Gender: F : 1950 Exam Date: 11/28/2023 08:38 Ordering Phys: Pam Aguiar MD Technologist: Franklin Yo Exam Location: [facility] Indication: chest pain BP: 136 / 73 HR: 72 Rhythm: Sinus Technical Quality: Adequate MEASUREMENTS (Male / Female) Normal Values 2D ECHO LV Diastolic Diameter PLAX 4.3 cm 4.2 - 5.9 / 3.9 - 5.3 cm IVS Diastolic Thickness 0.6 cm 0.6 - 1.0 / 0.6 - 0.9 cm IVS Systolic Thickness 1.0 cm LVPW Diastolic Thickness 1.3 cm 0.6 - 1.0 / 0.6 - 0.9 cm LVPW Systolic Thickness 1.8 cm LVOT Diameter 2.1 cm LV Ejection Fraction 2D Teich 67.7 % LV Ejection Fraction MOD 4C 58.4 % LV Ejection Fraction MOD 2C 61.6 % LV Ejection Fraction 2C AL 62.6 % RA Systolic Volume 4C AL 16.7 ml RA Systolic Volume 4C MOD 16.9 ml LA Sys Volume AL 22.9 cm cubed LA Sys Volume Index AL 19.0 cm cubed/m squared Aorta at Sinotubular Diameter 2.1 cm IVC Diameter 2.0 cm M-MODE LA Ao Ratio MM 1.2 AV Cusp Separation MM 1.8 cm DOPPLER AV Peak Velocity 86.0 cm/s LVOT Peak Velocity 84.0 cm/s AV Area Cont Eq vti 2.6 cm squared AV Area Cont Eq pk 3.3 cm squared MV Peak Velocity 229.7 cm/s MV Area PHT 5.6 cm squared Mitral E to A Ratio 0.8 TV Peak Velocity 214.0 cm/s TR Peak Velocity 300.0 cm/s TR Peak Gradient 36.0 mmHg TR Mean Velocity 261.0 cm/s TR Mean Gradient 28.4 mmHg TR Velocity Time Integral 82.2 cm PV Peak Velocity 77.0 cm/s RV Ejection Time 0.3 s FINDINGS Left Ventricle Left ventricle is normal size. LV systolic function is normal with EF 55 to 60%. No regional wall motion abnormalities are seen. Grade 1 diastolic dysfunction. Right Ventricle Normal in size and function Right Atrium Normal in size Left Atrium Normla in size Mitral Valve Structurally normal mitral valve. Trace mitral regurgitation. Aortic Valve Grossly normal. No significant stenosis or regurgitation. Tricuspid Valve Insufficient TR jet to calculate RVSP Pulmonic Valve Not well visualized Pericardium Grossly normal Aorta Normal in size IVC Appears to be normal CONCLUSIONS LV systolic function is normal with EF of 55 to 60%. Grade 1 diastolic dysfunction. Trace mitral regurgitation Compared to prior echocardiogram from 2021, no significant changes are seen. Adonis Lujan MD (Electronically Signed) Final Date: 28 November 2023 11:27 S
[2023-11-28 06:33] LABS: Anion Gap 10.8 (5-19); Blood Urea Nitrogen 27 mg/dL (8-23); Calcium 8.7 mg/dL (8.5-10.5); Carbon Dioxide 35 mmol/L (22-29); Chloride 99 mmol/L (98-107); Creatinine Clr Calc Pharmacy 35.2952; Glucose 102 mg/dL (65-115); Magnesium 2.2 mg/dL (1.7-2.3); Osmolality Calculated 297 mOsm/kg (285-295); Phosphorus 4.8 mg/dL (2.5-4.5); Potassium 3.8 mmol/L (3.5-5.1); Sodium 141 mmol/L (136-145)
[2023-11-28] MEDS: piperacillin-tazobactam 3.375 GM in sodium chloride 0.9% (plus) 50 ML IV ×3 (07:40→22:19)
[2023-11-28] MEDS: atorvastatin 40 mg Tablet PO (09:42)
[2023-11-28] MEDS: carvedilol 6.25 mg Tablet PO (09:42)
[2023-11-28] MEDS: sucralfate 1 gm Tablet PO ×2 (09:42→17:26)
[2023-11-28] MEDS: magnesium oxide 400 mg tablet PO ×2 (09:42→17:26)
[2023-11-28] MEDS: doxycycline 100 mg Tablet PO ×2 (09:42→17:26)
[2023-11-28] MEDS: lisinopril 20 mg Tablet 40 MG PO (09:42)
[2023-11-28] MEDS: venlafaxine ER (24HR) 150 mg Capsule PO (09:42)
--- NOTE | 2023-11-28 12:07 | PC.NURSE ---
Addendum entered by ACE Garcia 11/28/23 14:35: Return calls from both floors have been unsuccessful in locating patient belongings. Original Note: Patients son called and stated that patient came to hospital with a brown colored purse containing, bank cards . No patient belongings located in ICU, further investigation into documentation reveals, in ER patient had belongings documented, on medical surgical floor, no belongings were documented. This nurse called both floors and awaiting return calls at the time of this note.
[2023-11-28] MEDS: methylPREDNISolone sod succ 40 mg/mL INJ IVP (12:59)
[2023-11-28] MEDS: ALPRAZolam 0.5 mg Tablet 0.25 MG PO (12:59)
[2023-11-28] MEDS: ondansetron 2 mg/ML SDV 2 mL 4 MG IVP (13:50)
--- NOTE | 2023-11-28 13:51 | PC.OT ---
patient was unavailable for ot this afternoon. caregiver was helping with patient for feeding. ot held treatment . nrsg notified.
--- NOTE | 2023-11-28 14:00 | P.PN_ITS ---
Subjective 2 Subjective: Seen this morning. Patient currently with a sitter. She is pleasantly confused this morning. Vitals/I&O/Wt Last Vital Signs Temp 98.0 F 11/28/23 12:00 Pulse 90 11/28/23 13:19 Resp 16 11/28/23 13:18 BP 162/107 11/28/23 12:00 Pulse Ox 96 11/28/23 13:18 O2 Del Method Nasal Cannula 11/28/23 13:18 O2 Flow Rate 2 11/28/23 13:18 11/27/23 11/28/23 11/28/23 22:59 06:59 14:59 Intake Total 310 / 610 50 / 660 310 / 310 Output Total 150 / 650 650 / 650 Balance 160 / -40 50 / 10 -340 / -340 Weight last 48 hrs Weight 35.698 kg Weight 33.248 kg Weight 33.248 kg Physical Exam 2 Narrative: Pleasantly confused. HENMT: COMMON NORMALS: oropharynx normal Eye: OTHER: Pupils equal. Neck/C-Spine: COMMON NORMALS: no JVD Resp: AUSCULTATION: rhonchi OTHER: Cough. Cardio: COMMON NORMALS: no JVD, regular rhythm, S1 normal heart sound present, S2 normal heart sound present and No murmurs present (Cardio) RHYTHM: regular rhythm HEART SOUNDS: S1 normal heart sound present and S2 normal heart sound present GI: COMMON NORMALS: Normal to inspection, nondistended, normoactive bowel sounds present, Soft to palpation and non-tender PALPATION: Yes Soft to palpation Extremity: COMMON NORMALS: no joint enlargement and no pedal edema N ARRATIVE EXTREMITY EXAM: Sarcopenia Neuro: COMMON NORMALS: moves all extremities Skin: COMMON NORMALS: no rashes or lesions noted GENERAL SKIN EXAM: no rashes or lesions noted Urinary Catheter Management: Vargas: Cath Placed During This Visit: yes yes but has been removed. Reason for Continuing Indwelling Catheter: Accurate Measurement of Urinary Output in Critically Ill Patients Urinary Catheter Date of Insertion: 11/26/23 Urinary Catheter Time of Insertion: 16:28 Data 11/28/23 05:32 11/28/23 05:32 Micro: Microbiology 11/27/23 15:18 Urine Culture - Preliminary Urine,Voided Gram Negative Rods A&P Assessment and plan (1) Generalized anxiety disorder: (2) Hypertension: Qualifiers: Hypertension type: essential hypertension Qualified Code(s): I10 - Essential (primary) hypertension (3) Mixed hyperlipidemia: (4) Failure to thrive: (5) Hypophosphatemia: (6) Acute hypokalemia: (7) Encephalopathy, hypertensive: (8) Chest pain: Plan #Acute encephalopathy present on admission most likely secondary to hypertensive urgency #Hypertensive urgency #Altered mental status #COPD exacerbation #Hypertension #Failure to thrive #Hypokalemia present on admission #Hypophosphatemia ? Phosphate, potassium repleted, magnesium repleted ? Patient has been hotlined. Found at home sitting in her own feces start in distress. Normally lives with her son. ? Patient has capacity and would like to go back home. ? Currently complaining of chest pain most likely secondary to acute hypertensive episode ? Hydralazine 10 IV x 1 ordered. ? Home antihypertensives continued ? Will treat for COPD exacerbation. Solu-Medrol 40 daily ? Doxycycline 100 twice daily ? Check troponins, serial EKGs ? Dietitian consulted Full code Due to prophylaxis: Heparin subcu twice daily 11/27 Pleasantly confused. Urine culture positive for gram-negative rods. Vargas was removed yesterday Await urine culture Continue Zosyn Stress test in AM. Echo does not show any wall motion abnormalities. Blood pressure again elevated. Will add low-dose hydralazine 25 3 times daily. [facility] transfer to [facility]. Attestations 2 Medical Necessity Statement*: Stress test in AM. UTI Diagnoses Generalized anxiety disorder F41.1 Essential hypertension I10 Hypertension type: essential hypertension Mixed hyperlipidemia E78.2 Failure to thrive Hypophosphatemia E83.39 Acute hypokalemia E87.6 Encephalopathy, hypertensive I67.4 Chest pain R07.9
--- NOTE | 2023-11-28 14:04 | ECG_ITS ---
[facility] Test Date: 2023-11-29 Pat Name: Karin Garcia Department: Room: [facility]04 Gender: Female Gallery Or Museum Guide: : 1950 Requested By: Pam Aguiar Order Number: [id number] Jesse MD: Jemima Abrams M.D. Interpretive Statements PROCEDURE: At the baseline, the EKG revealed normal sinus rhythm with occasional supraventricular and ventricular ectopics. Some nonspecific ST-T changes. Possible right atrial enlargement.. The baseline heart was 88 bpm with a blood pressue of 149/64 mm of Hg Lexiscan was infused over a period of 20 seconds. A total of 0.4 milligrams of Lexiscan was infused. The stress phase was continued for a total of 5 minutes. Heart rate at the end of the stress phase was 98 bpm with a blood pressure of 165/58 mm of Hg. The EKG at the peak infusion revealed diffuse ST-T changes-0.[address] depressions in the anterolateral and inferior leads. Frequent PVCs also were noted on the monitor. Sestamibi was injected 20 seconds after the Lexiscan infusion. Heart rate at the end of the recovery phase was 90 bpm with a blood pressure of 165/58 mm of Hg. the EKG showed persistent ST-T changes and PVCs CONCLUSION: 1. Nonspecific EKG changes with the LexiScan infusion 2. Lexiscan induced ventricular arrhythmia 3. Elevated blood pressure and heart rate response to Lexiscan infusion 4. Sestamibi/sestamibi perfusion scan pending; see separate report. Lung unchanged pre/post procedure; Intraprocedure shortess of breath; Symptoms resoled by discharge Electronically Signed On 12-05-2023 18:32:41 CDT by Jemima Abrams M.D. [id number]
[2023-11-28] MEDS: hyDRALAzine 25 mg Tablet PO ×2 (14:57→20:24)
[2023-11-28] MEDS: acetaminophen 325 mg Tablet 650 MG PO (17:27)
[2023-11-28] MEDS: carvedilol 6.25 mg Tablet 12.5 MG PO (17:27)
[2023-11-28] MEDS: trazodone 50 mg Tablet PO (20:25)
[2023-11-29] VITALS (18 sets, daily range): BP systolic 106–171; BP diastolic 45–94; PULSE 58–91; RESP 17–27; TEMP 36.6–37.2; O2SAT 94–100
[2023-11-29] MEDS: ipratropium-albuterol 3 mL Neb INHALATION ×3 (02:13→14:18)
--- NOTE | 2023-11-29 02:46 | PC.NURSE ---
Patients purse brought to patients room by security Ornelas . Patient states that the only thing she does not see in her purse if her cell phone. Johnson states that he will look in the ER again for it.
[2023-11-29] MEDS: ALPRAZolam 0.5 mg Tablet 0.25 MG PO (04:22)
[2023-11-29 05:48] LABS: Anion Gap 6.9 (5-19); Blood Urea Nitrogen 22 mg/dL (8-23); Calcium 8.7 mg/dL (8.5-10.5); Carbon Dioxide 37 mmol/L (22-29); Chloride 98 mmol/L (98-107); Creatinine Clr Calc Pharmacy 35.2952; Glucose 83 mg/dL (65-115); Osmolality Calculated 288 mOsm/kg (285-295); Potassium 3.9 mmol/L (3.5-5.1); Sodium 138 mmol/L (136-145)
[2023-11-29] MEDS: enoxaparin 30 mg/0.3 mL Syringe SUBCUT (06:22)
[2023-11-29] MEDS: piperacillin-tazobactam 3.375 GM in sodium chloride 0.9% (plus) 50 ML IV (06:23)
[2023-11-29] MEDS: regadenoson 0.4 Mg/5 ml Syringe IVP (10:20)
[2023-11-29] MEDS: magnesium oxide 400 mg tablet PO (11:22)
[2023-11-29] MEDS: atorvastatin 40 mg Tablet PO (11:22)
[2023-11-29] MEDS: doxycycline 100 mg Tablet PO (11:22)
[2023-11-29] MEDS: hyDRALAzine 25 mg Tablet PO ×2 (11:23→15:12)
[2023-11-29] MEDS: carvedilol 6.25 mg Tablet 12.5 MG PO (11:23)
[2023-11-29] MEDS: venlafaxine ER (24HR) 150 mg Capsule PO (11:23)
[2023-11-29] MEDS: lisinopril 20 mg Tablet 40 MG PO (11:23)
[2023-11-29] MEDS: sucralfate 1 gm Tablet PO (11:23)
--- NOTE | 2023-11-29 12:13 | P.PN_ITS ---
Subjective 2 Subjective: Seen this morning. Patient lying comfortably in bed. Was quite confused overnight. However this morning seems to be doing slightly better. Knows her name and date of . Urine culture positive for gram-negative rods. Plan to go for stress test today. Vitals/I&O/Wt Last Vital Signs Temp 97.9 F 11/29/23 04:00 Pulse 81 11/29/23 12:00 Resp 21 H 11/29/23 12:00 BP 125/94 11/29/23 12:00 Pulse Ox 100 11/29/23 12:00 O2 Del Method Nasal Cannula 11/29/23 12:00 O2 Flow Rate 2 11/29/23 12:00 11/28/23 11/29/23 11/29/23 22:59 06:59 14:59 Intake Total 210 / 520 50 / 570 530.000 / 530.000 Output Total 550 / 1200 Balance -340 / -680 50 / -630 530.000 / 530.000 Weight last 48 hrs Weight 36.151 kg Weight 35.698 kg Physical Exam 2 Narrative: Pleasantly confused. HENMT: COMMON NORMALS: oropharynx normal Eye: OTHER: Pupils equal. Neck/C-Spine: COMMON NORMALS: no JVD Resp: AUSCULTATION: rhonchi OTHER: Cough. Cardio: COMMON NORMALS: no JVD, regular rhythm, S1 normal heart sound present, S2 normal heart sound present and No murmurs present (Cardio) RHYTHM: regular rhythm HEART SOUNDS: S1 normal heart sound present and S2 normal heart sound present GI: COMMON NORMALS: Normal to inspection, nondistended, normoactive bowel sounds present, Soft to palpation and non-tender PALPATION: Yes Soft to palpation Extremity: COMMON NORMALS: no joint enlargement and no pedal edema N ARRATIVE EXTREMITY EXAM: Sarcopenia Neuro: COMMON NORMALS: moves all extremities Skin: COMMON NORMALS: no rashes or lesions noted GENERAL SKIN EXAM: no rashes or lesions noted Urinary Catheter Management: Vargas: Cath Placed During This Visit: yes Reason for Continuing Indwelling Catheter: Accurate Measurement of Urinary Output in Critically Ill Patients Urinary Catheter Date of Insertion: 11/26/23 Urinary Catheter Time of Insertion: 16:28 Data 11/28/23 05:32 11/29/23 04:56 Micro: Microbiology 11/27/23 15:18 Urine Culture - Final Urine,Voided Citrobacter Freundii Complex A&P Assessment and plan (1) Generalized anxiety disorder: (2) Hypertension: Qualifiers: Hypertension type: essential hypertension Qualified Code(s): I10 - Essential (primary) hypertension (3) Mixed hyperlipidemia: (4) Failure to thrive: (5) Hypophosphatemia: (6) Acute hypokalemia: (7) Encephalopathy, hypertensive: (8) Chest pain: Plan #Acute encephalopathy present on admission most likely secondary to hypertensive urgency #Hypertensive urgency #Altered mental status #COPD exacerbation #Hypertension #Failure to thrive #Hypokalemia present on admission #Hypophosphatemia ? Phosphate, potassium repleted, magnesium repleted ? Patient has been hotlined. Found at home sitting in her own feces start in distress. Normally lives with her son. ? Patient has capacity and would like to go back home. ? Currently complaining of chest pain most likely secondary to acute hypertensive episode ? Hydralazine 10 IV x 1 ordered. ? Home antihypertensives continued ? Will treat for COPD exacerbation. Solu-Medrol 40 daily ? Doxycycline 100 twice daily ? Check troponins, serial EKGs ? Dietitian consulted Full code Due to prophylaxis: Heparin subcu twice daily 11/28 Pleasantly confused. Urine culture positive for gram-negative rods. Citrobacter. Sensitive to ceftriaxone. Continue ceftriaxone IV. Stop Zosyn. Plan for stress test today. Echo does not show any wall motion abnormalities. Blood pressure better controlled at this time. Continue hydralazine 25 3 times daily, lisinopril 40 daily, Coreg 12.5 twice daily. May transfer to medical surgical floor. Attestations 2 Medical Necessity Statement*: Stress test today. Diagnoses Generalized anxiety disorder F41.1 Essential hypertension I10 Hypertension type: essential hypertension Mixed hyperlipidemia E78.2 Failure to thrive Hypophosphatemia E83.39 Acute hypokalemia E87.6 Encephalopathy, hypertensive I67.4 Chest pain R07.9
[2023-11-29] MEDS: methylPREDNISolone sod succ 40 mg/mL INJ IVP (13:09)
[2023-11-29] MEDS: cefTRIAXone 1,000 mg SDV 1000 MG IVP (13:09)
--- NOTE | 2023-11-29 14:04 | NMCV_ITS ---
NM jackelyn perf SPECT r/s* [id number] Karin Garcia Age: 73 Gender: F : 1950 Exam Date: 11/29/2023 14:04 Ordering Phys: Pam Aguiar MD Technologist: MAI Goodwin Exam Location: [facility] Indications: cp STRESS TEST Please see separate stress test report in [facility] for full findings IMAGE PROTOCOL Rest/Stress 1 Lexiscan Day Radiopharmaceutical Dose (mCi) Administration Site Administered by Rest: Tc-99m 10.9 IV Lana Wolf, [employer]ER Sestamibi Stress:Tc-99m 32.1 IV Lana Wolf, [employer] BU[employer] Sestamibi Rest: 29-Nov-2023 60 Discovery 630 Stress: 29-Nov-2023 30 Discovery 630 0.4mg Lexiscan. Supine position only as patient was unable to lay prone. SPECT RESULTS Technical Quality: Good Raw Data Analysis: Normal Image Corrections: No attenuation or motion correction applied Summed Stress Score: 0 Summed Rest Score: 0 Summed Difference Score: 0 PERFUSION FINDINGS Fairly uniform myocardial tracer uptake with no significant Perfusion normalities. FUNCTIONAL RESULTS (calculated via Gated SPECT) Stress Image LV EF (%): 80 Stress EDV (mL):46 TID: 1.06 Stress ESV (mL):9 FUNCTIONAL FINDINGS: Segmental wall motion analysis revealing no gross wall motion abnormalities IMPRESSIONS 1. Uniform myocardial tracer uptake with no significant perfusion abnormalities. 2. Normal LV ejection fraction of 80%. 3. LV wall motion analysis revealing no gross wall motion abnormalities. 4. Normal LV volume Low probability for coronary ischemia, based on the above findings Dr Jemima Abrams MD FACC (Electronically Signed) Final Date: 29 November 2023 12:22 S
--- NOTE | 2023-11-29 16:01 | P.DS_ITS ---
Discharge Providers Date of Admission: 11/24/23 22:52 Date of Discharge: November 29, 2023 Attending Provider at Admission: Liban Bar Attending Provider at Discharge: Pam Aguiar MD Primary Care Provider: TERRELL Hopper Diagnoses at Discharge Discharge Diagnosis (1) Generalized anxiety disorder: Status: Chronic (2) Hypertension: Status: Chronic Qualifiers: Hypertension type: essential hypertension Qualified Code(s): I10 - Essential (primary) hypertension (3) Mixed hyperlipidemia: Status: Chronic (4) Failure to thrive: Status: Acute (5) Hypophosphatemia: Status: Resolved (6) Acute hypokalemia: Status: Resolved (7) Encephalopathy, hypertensive: Status: Resolved (8) Chest pain: Status: Resolved Reason for Visit Reason for Visit: Dizzy, Not taken care of. Hospital Course Hospital Course Initially patient was admitted for failure to thrive altered mental status on admission secondary to hypertensive urgency. Patient did receive clonidine in the ER. Initial urinalysis was not suggestive of UTI. Chest x-ray was not suggestive of pneumonia. Apparently she was found at home in dirt and feces and despair. Suspicion of self-neglect. Hotline contacted. Normally lives with son. When patient's was coherent enough it was discussed with her regarding her home situation. She was a poor historian however did state that she wanted to go home no matter what. She did not want to go to a residential. She states her son lives with her. As she was being monitored patient developed another episode of hypertensive urgency along with chest pain. IV hydralazine did not help therefore she was placed on Cardene drip and moved on to the ICU. Blood pressure was controlled and she was optimized on oral antihypertensives. Patient did develop hospital-acquired delirium as well for which she required a sitter. UA was repeated which was positive and urine culture positive as well. She was treated for UTI at which point her mental status improved back to baseline. Son came to visit patient in the hospital and stated that this was her baseline. Clinically she was doing better and blood pressure was also stable. For her chest pain secondary to poor historian stress test was pursued which was also negative. Echo also did not show any wall motion abnormalities. Thereby she was ultimately discharged home with her son. Of note she was treated with IV steroids for presumed bronchitis upon admission. Physical Exam Narrative: Alert oriented to self and place. Back to baseline as per family. HENMT: COMMON NORMALS: oropharynx normal Eye: OTHER: Pupils equal. Neck/C-Spine: COMMON NORMALS: no JVD Resp: COMMON NORMALS: clear to auscultation bilaterally AUSCULTATION: clear to auscultation bilaterally Cardio: COMMON NORMALS: no JVD, regular rhythm, S1 normal heart sound present, S2 normal heart sound present and No murmurs present (Cardio) RHYTHM: regular rhythm HEART SOUNDS: S1 normal heart sound present and S2 normal heart sound present GI: COMMON NORMALS: Normal to inspection, nondistended, normoactive bowel sounds present, Soft to palpation and non-tender PALPATION: Yes Soft to palpation Extremity: COMMON NORMALS: no joint enlargement and no pedal edema NARRATIVE EXTREMITY EXAM: Sarcopenia Neuro: COMMON NORMALS: moves all extremities Skin: COMMON NORMALS: no rashes or lesions noted GENERAL SKIN EXAM: no rashes or lesions noted Urinary Catheter Management: Vargas: Cath Placed During This Visit: yes Reason for Continuing Indwelling Catheter: Accurate Measurement of Urinary Output in Critically Ill Patients Urinary Catheter Date of Insertion: 11/26/23 Urinary Catheter Time of Insertion: 16:28 Discharge Data Studies Completed and Pending Completed Studies During Hospitalization Category Date Time Status Sestamibi Stress Test Request Routine Exams 11/28/23 14:04 Draft XR chest 1V portable [id number] Routine Exams 11/27/23 14:54 Completed XR chest 1V portable [id number] Stat Exams 11/24/23 21:02 Completed NM jackelyn perf SPECT r/s* [id number] Routine Nuc Med 11/29/23 14:04 Completed CV. echo complete* [id number] Routine Ultrasound 11/28/23 06:11 Completed Pending at discharge Category Date Time Status Basic Metabolic Panel AM LABS Lab 11/30/23 04:00 Ordered Complete Blood Count w/Auto AM LABS Lab 11/30/23 04:00 Ordered Magnesium AM LABS Lab 11/30/23 04:00 Ordered Radiology Impressions Chest X-Ray 11/27/23 14:54 IMPRESSION: No acute findings. Suspected chronic obstructive pulmonary disease. Laboratory Results WBC 11.37 10^3/uL (3.29-11.43) 11/28/23 05:32 RBC 2.93 10^6/uL (3.85-5.65) L 11/28/23 05:32 Hgb 8.50 g/dL (11.27-16.99) L 11/28/23 05:32 Hct 28.4 % (36-47) L 11/28/23 05:32 MCV 96.9 fl (85-98) 11/28/23 05:32 MCH 29.0 pg (27-33) 11/28/23 05:32 MCHC 29.9 g/dL (30-55) L 11/28/23 05:32 RDW 13.6 % (12.1-15.1) 11/28/23 05:32 Plt Count 198 10^3/cmm (157-399) D 11/28/23 05:32 MPV 11.5 fL (7.4-10.4) H 11/28/23 05:32 Neut % (Auto) 85.3 % 11/28/23 05:32 Lymph % (Auto) 8.4 % 11/28/23 05:32 Gilchrist % (Auto) 5.8 % 11/28/23 05:32 Eos % (Auto) 0.0 % 11/28/23 05:32 Baso % (Auto) 0.1 % 11/28/23 05:32 Neut # (Auto) 9.71 10^3/uL (1.8-7.7) H 11/28/23 05:32 Lymph # (Auto) 1.0 10^3/uL (0.8-4.8) 11/28/23 05:32 Gilchrist # (Auto) 0.7 10^3/uL (0.2-0.9) 11/28/23 05:32 Eos # (Auto) 0.0 10^3/uL (0.0-0.8) 11/28/23 05:32 Baso # (Auto) 0.0 10^3/uL (0.0-0.1) 11/28/23 05:32 Nucleated RBC % (auto) 0 % 11/28/23 05:32 Nucleated RBCs # 0.0 /100WBC 11/28/23 05:32 Specimen Type Arterial 11/25/23 13:07 Sample Site Radial, right 11/25/23 13:07 ABG pH 7.44 (7.35-7.45) 11/25/23 13:07 ABG pCO2 52.0 mmHg (35-45) H 11/25/23 13:07 ABG pO2 113.0 mmHg (80.0-100.0) H 11/25/23 13:07 ABG PO2/FiO2 Ratio 403 11/25/23 13:07 ABG HCO3 35.2 mmol/L (22-26) H 11/25/23 13:07 ABG O2 Saturation > 99.1 11/25/23 13:07 ABG Base Excess 9.8 mmol/L (-2.0-2.0) H 11/25/23 13:07 Bal Test Pos 11/25/23 13:07 A-a O2 Gradient 3.1 mmHg (5-10) L 11/25/23 13:07 Hematocrit 28.2 % (37-47) L 11/25/23 13:07 Hgb O2 Saturation 97.4 % (95-100) 11/25/23 13:07 Carboxyhemoglobin 0.7 %THgb (0.4-20.1) 11/25/23 13:07 Methemoglobin 1.2 % (0.4-1.5) 11/25/23 13:07 Total Hemoglobin 9.2 g/dL (12-16) L 11/25/23 13:07 Sodium 142.0 mmol/L (131-143) 11/25/23 13:07 Potassium 3.3 mmol/L (3.5-5.0) L 11/25/23 13:07 Glucose 125.0 mg/dL (70-115) H 11/25/23 13:07 Ionized Calcium 1.2 mmol/L (1.1-1.4) 11/25/23 13:07 O2 Delivery Device Nc 11/25/23 13:07 O2 Liters/Min 2.0 % 11/25/23 13:07 FiO2 28.0 % 11/25/23 13:07 Projector Booth Operator ID Monro 11/25/23 13:07 Sodium 138 mmol/L (136-145) 11/29/23 04:56 Potassium 3.9 mmol/L (3.5-5.1) 11/29/23 04:56 Chloride 98 mmol/L (98-107) 11/29/23 04:56 Carbon Dioxide 37 mmol/L (22-29) H 11/29/23 04:56 Anion Gap 6.9 (5-19) 11/29/23 04:56 BUN 22 mg/dL (8-23) 11/29/23 04:56 Creatinine 0.6 mg/dL (0.5-0.9) 11/29/23 04:56 GFR Calculation Not Reportable 11/29/23 04:56 Glucose 83 mg/dL (65-115) 11/29/23 04:56 Calculated Osmolality 288 mOsm/kg (285-295) 11/29/23 04:56 Lactic Acid 1.8 mmol/L (0.5-2.2) 11/24/23 20:12 Calcium 8.7 mg/dL (8.5-10.5) 11/29/23 04:56 Phosphorus 4.8 mg/dL (2.5-4.5) H 11/28/23 05:32 Magnesium 2.2 mg/dL (1.7-2.3) 11/28/23 05:32 Total Bilirubin 0.2 mg/dL (0.15-1.2) 11/25/23 13:29 AST 11 U/L (0-32) 11/25/23 13:29 ALT < 5 U/L (0-33) 11/25/23 13:29 Alkaline Phosphatase 62 U/L (35-105) 11/25/23 13:29 Creatine Kinase 35 U/L (26-192) 11/24/23 20:12 Troponin T Baseline 35 ng/L (0-10) H 11/26/23 13:59 Troponin T 120 Minute 40.68 ng/L (0-10) H 11/26/23 16:25 Delta Troponin T 5.68 ABS# (0-10) 11/26/23 16:25 Troponin T Hi Sens 6Hr 42.33 ng/L (0-10) H 11/26/23 20:00 Troponin T Hi Sens 6Hr Delta 7.33 ng/L (0-12) 11/26/23 20:00 C-Reactive Protein 6.0 mg/L (0.0-4.9) H 11/24/23 20:12 Total Protein 4.7 g/dL (6.6-8.7) L 11/25/23 13:29 Albumin 2.9 g/dL (3.5-5.2) L 11/25/23 13:29 Globulin 1.8 g/dL (1.3-4.6) 11/25/23 13:29 Procalcitonin 0.20 ng/mL (0-0.5) 11/24/23 20:12 TSH 1.09 uIU/mL (0.27-4.20) 11/24/23 22:01 Urine Color Yellow (Yellow) 11/27/23 15:18 Urine Appearance Cloudy (CLEAR) A 11/27/23 15:18 Urine pH 6.5 (5-7) 11/27/23 15:18 Ur Specific [place] 1.021 (1.005-1.030) 11/27/23 15:18 Urine Protein 3+ (Negative) A 11/27/23 15:18 Urine Glucose (UA) Negative (Normal) 11/27/23 15:18 Urine Ketones Negative (Negative) 11/27/23 15:18 Urine Blood 2+ (Negative) A 11/27/23 15:18 Urine Nitrate Negative (Negative) 11/27/23 15:18 Urine Bilirubin Negative (Negative) 11/27/23 15:18 Urine Urobilinogen 1.0 mg/dL (Negative) 11/27/23 15:18 Ur Leukocyte Esterase 2+ (Negative) A 11/27/23 15:18 Urine RBC 11-20 /hpf (0-2) H 11/27/23 15:18 Urine WBC >100 /hpf (0-5) H 11/27/23 15:18 Ur Squamous Epith Cells 6-10 /hpf (0-5) 11/27/23 15:18 Amorphous Sediment Not Reportable 11/27/23 15:18 Urine Bacteria 2+ /hpf (NONE) H 11/27/23 15:18 Hyaline Casts 6.61 /lpf 11/27/23 15:18 Vitals Last Vital Signs Temp 97.9 F 11/29/23 04:00 Pulse 88 11/29/23 15:36 Resp 20 H 11/29/23 14:15 BP 125/94 11/29/23 12:00 Pulse Ox 98 11/29/23 14:15 O2 Del Method Nasal Cannula 11/29/23 14:15 O2 Flow Rate 2 11/29/23 14:15 Discharge Plan Discharge Patient Disposition: Home Condition: Stable Prescriptions: New hydralazine 25 mg Tablet 25 mg PO TID Qty: 90 0RF cefdinir 300 mg capsule 300 mg PO BID Qty: 8 0RF prednisone 20 mg tablet 40 mg PO DAILY Qty: 2 0RF Rx Instructions: take one dose 11/30/2023 Continued (DME) oxygen concentrator with portable oxygen See Rx Instructions .Route .MEDSUPPLY Qty: 1 0RF Rx Instructions: As directed oxygen concentrator with portable oxygen 2 liters 24 hours atorvastatin 20 mg tablet 20 mg PO DAILY Qty: 30 2RF carvedilol 6.25 mg tablet 6.25 mg PO BID 30 Days Qty: 60 2RF Arnuity Ellipta 100 mcg/actuation blister with device 1 inh inhalation Q24H Qty: 30 2RF lisinopril 40 mg tablet 40 mg PO DAILY Qty: 30 2RF magnesium oxide 400 mg magnesium tablet 400 mg PO BID Qty: 180 0RF sucralfate 1 gram tablet 1 g PO BID 30 Days Qty: 60 2RF tiotropium bromide [Spiriva with HandiHaler] 18 mcg capsule, w/inhalation device 1 cap inhalation DAILY Qty: 30 2RF Rx Instructions: puncture 1 cap using device; one dose = 2 inhalations trazodone 50 mg tablet 50 mg PO BEDTIME Qty: 30 2RF venlafaxine 150 mg capsule,extended release 24hr 150 mg PO DAILY Qty: 30 2RF nystatin 100,000 unit/mL suspension 5 ml PO TID Qty: 200 0RF Rx Instructions: swish and swallow magnesium hydroxide [Milk of Magnesia] 400 mg/5 mL suspension 30 ml PO BID PRN (Reason: constipation) Qty: 355 0RF glycerin (adult) [Fleet Glycerin (Adult)] Suppository 1 supp AK DAILY PRN (Reason: constipation) Qty: 12 0RF Probiotic Digestive Care 20 billion cell capsule 20 cell PO BID Discharge Orders: Discharge Order (Routine); Ordered 11/29/23 Ordered By: Pam Aguiar Referrals: Ema Jansen FNP-C [Primary Care Provider] - 12/06/23 3:20 pm Discharge Diet: Cardiac Discharge Activity: Resume usual activity Patient Instructions: Prednisone (By mouth), Hydralazine (By mouth), Cefdinir (By mouth), Heart Healthy Diet (DC), Encephalopathy (DC), Opioid Safety Discharge Attestations Time Spent in Discharge Care*: less than 30 min Quality Metrics Clinical Quality Measures [ No reported AMI, CVA or VTE this stay] Coding Level of Care Code Acute Code for Chg Fwd Diagnoses Generalized anxiety disorder F41.1 Essential hypertension I10 Hypertension type: essential hypertension Mixed hyperlipidemia E78.2 Failure to thrive Hypophosphatemia E83.39 Acute hypokalemia E87.6 Encephalopathy, hypertensive I67.4 Chest pain R07.9
--- NOTE | 2023-11-29 16:24 | PC.NURSE ---
Addendum entered by Liane Javier RN 11/29/23 16:28: patient and son notified of unknown ETA of equipment Original Note: patient being dc'd to home patient has home o2 established with vicente, vicente contacted to notify of discharge and the need of a bottle to be brought to the hospital for discharge [facility] agreed to bring O2 unknown ETA
== END 2023-11-29 16:56 | disposition home or self-care (01) ==
LOC: ER 22:49 → MEDSURG 22:55 → ICU 11-26 15:32
PROVIDERS: Admitting Provider Internal Medicine; Emergency Provider Emergency Medicine; PCP Nurse Practitioner; Visit Provider Internal Medicine
DX: R62.7 Adult failure to thrive (principal); F41.1 Generalized anxiety disorder; I10 Essential (primary) hypertension; E78.2 Mixed hyperlipidemia; E83.39 Other disorders of phosphorus metabolism; E87.6 Hypokalemia; I67.4 Hypertensive encephalopathy; R07.9 Chest pain, unspecified; I16.0 Hypertensive urgency; J44.1 Chronic obstructive pulmonary disease with (acute) exacerbation; Z99.81 Dependence on supplemental oxygen; Z87.891 Personal history of nicotine dependence; E83.42 Hypomagnesemia
CPT/HCPCS: 36415; 36600; 51702; 51798; 71045; 78452; 80048; 80051; 80053; 81001; 82330; 82550; 82805; 83605; 83735; 84100; 84145; 84443; 84484; 85025; 86140; 87077; 87086; 87186; 93005; 93017; 93306; 94640; 96361; 96365; 96366; 96367; 96372; 96375; 96376; 97110; 97116; 97161; 97166; 97530; 97535; 99285; A9500; G0378; J0360; J0696; J1650; J2405; J2543; J2785; J2919; J3475; J3490; J7030; J7050